=== PATIENT | female | born 1945 | race Caucasian/White ===

== ENCOUNTER → 2017-06-19 11:39 | Outpatient (CLI) | payer MEDICARE, SELFPAY ==
[2017-06-19 13:27] LABS: Anion Gap 5 (5-15); BUN 21 mg/dL (7-18); BUN/Creat Ratio 35.5 RATIO (10-20); Calcium,Total 9.1 mg/dL (8.5-10.1); Chloride 105 mmol/L (98-107); Creatinine, Serum 0.59 mg/dL (0.55-1.02); EST Glomerular Filtration Rate 106 mL/min (>60); Est Glom Filt Rate - Afr Amer 128 mL/min (>60); Glucose 131 mg/dL (74-106); Potassium 4.3 mmol/L (3.5-5.1); Sodium Level 139 mmol/L (136-145)
== END ==
PROVIDERS: Family Provider Internal Medicine; PCP Student in an Organized Health Care Education/Training Program; Visit Provider Internal Medicine Nephrology
DX: I10 Essential (primary) hypertension (principal)
CPT/HCPCS: 36415; 80048

== ENCOUNTER 2017-11-13 19:15 | Inpatient (IN) | payer MEDICARE, SELFPAY ==
[2017-11-13 19:16] VITALS: BP 145/65; PULSE 83; RESP 16; TEMP 38.2; O2SAT 94; BMI 32.0
[2017-11-13 20:01] LABS: Bedside Glucose 308 mg/dL (70-110)
[2017-11-13] MEDS: Acetaminophen 500 MG Tablet 1000 MG PO (20:16)
[2017-11-13] MEDS: 0.9% Normal Saline 1,000 ML 1000 ML IV (20:17)
[2017-11-13 20:24] LABS: Absolute Lymphocyte Count 0.74 X10^3/ul (0.83-4.51); Absolute Neutrophil Count 15.6 X10^3/uL (2.0-7.7); Basophil# 0.01 X10^3/uL; Basophil% 0.1 % (0-1); Eosinophil# 0.02 X10^3/uL; Eosinophils% 0.1 % (0-5); Hemoglobin 12.4 g/dl (12.0-15.0); Lymphocyte # 0.74 X10^3/ul (4.0); Lymphocyte % 4.4 % (19-41); Mean Corp Hgb Conc 33.5 g/gl (32-36); Mean Corpuscular Hgb 29.8 pg (27.0-32.0); Mean Corpuscular Volume 88.9 fL (81-99); Mean Platelet Vol. 9.8 fl (6.2-12.0); Monocyte# 0.22 X10^3/uL; Monocyte% 1.3 % (0-10); Neutrophil # 15.61 X10^3/uL (2.7-7.7); Neutrophil % 93.7 % (47-70); Platelet Count 385 K/mm3 (150-450); RBC Distribution Width CV 12.8 % (11.6-14.6); RBC Distribution Width SD 41.3 fl (35.1-43.9); Red Blood Count 4.16 M/mm3 (4.2-5.4); White Blood Count 16.7 K/mm3 (4.4-11.0)
--- NOTE | 2017-11-13 20:25 | RAD_ITS ---
STUDY: X-RAY CHEST REASON FOR EXAM: Female, 71 years old. Weakness TECHNIQUE: PA and lateral COMPARISON: None. FINDINGS: Nonspecific elevation of right hemidiaphragm. Lungs are clear.. There is no demonstrated pleural abnormality. Normal size heart. Normal mediastinum and areli. Normal visualized pulmonary arteries. Normal visualized aortic arch and descending thoracic aorta. Dorsal spine demonstrates mild spondylosis. Normal visualized ribs, clavicles, and shoulders. There is no demonstrated abnormality of the visualized soft tissue structures of the upper abdomen. RAD/Chest PA and Lateral IMPRESSION: No acute cardiopulmonary pathology Electronically Signed: Sid Rush MD at 21:19 EDT , Service support ,
[2017-11-13 20:27] LABS: POSITIVE COUNT NO; POSITIVE DIFFERENTIAL NO; POSITIVE MORPHOLOGY NO
[2017-11-13 20:39] LABS: Anion Gap 10 (5-15); BUN 29 mg/dL (7-18); BUN/Creat Ratio 27.4 RATIO (10-20); Calcium,Total 8.9 mg/dL (8.5-10.1); Chloride 101 mmol/L (98-107); Creatinine, Serum 1.06 mg/dL (0.55-1.02); EST Glomerular Filtration Rate 54 mL/min (>60); Est Glom Filt Rate - Afr Amer 65 mL/min (>60); Estimated Creatinine Clearance 37.94 ml/min; Glucose 307 mg/dL (74-106); Potassium 3.5 mmol/L (3.5-5.1); Sodium Level 135 mmol/L (136-145)
[2017-11-13 20:44] LABS: Lactic Acid 3.2 mmol/L (0.4-2.0)
[2017-11-13 21:06] VITALS: BP 112/38; PULSE 73; RESP 19; TEMP 37.4; O2SAT 95
[2017-11-13 21:44] LABS: Mucous, Urine 0 SEEN /hpf (<or=2+)
[2017-11-13 21:46] VITALS: TEMP 37.3
[2017-11-13 21:50] LABS: Color, Urine Yellow (Yellow); Glucose, Dipstick Normal (Normal); Ketone-Dipstick Negative (Negative); Leukocyte Esterase-Dipstick 500 /ul (Negative); Nitrite-Dipstick Positive (Negative); Occult Blood-Urine 25 /ul (Negative); Protein-Dipstick Negative (Negative); Urine Bilirubin Dipstick Negative (Negative); Urine Clarity Sl. Cloudy (Clear); Urine Urobilinogen Normal (Normal)
[2017-11-13 22:04] LABS: White Blood Cells 10-25 SEEN /hpf (0-5)
[2017-11-13 22:05] LABS: Bacteria 4+ /hpf (None Seen); Red Blood Cells-Urine 0 SEEN /hpf (0-5)
[2017-11-13 22:06] LABS: Squamous Epithelial Cells - UA 10-25 SEEN /hpf (5-10)
[2017-11-13] MEDS: Ceftriaxone 1 GM/50 ML BAG IV (22:44)
[2017-11-13 22:48] VITALS: BP 128/50; PULSE 70; RESP 24; O2SAT 93
[2017-11-13 22:57] VITALS: BP 128/50; PULSE 76; RESP 24; TEMP 37.3; O2SAT 93
--- NOTE | 2017-11-13 22:57 | HP.PCM_ITS ---
Problem List (1) Depression Status: Chronic (2) Type 2 diabetes mellitus Status: Chronic (3) Hypertension Status: Chronic (4) Hyperlipidemia Status: Chronic History of Present Illness Date of Admission: 11/13/17 Chief Complaint: Shaking chills, weakness. The patient is a 71 year old F with past medical history as mentioned above presented to the medicine because of shaking chills and weakness. Her symptoms started today afternoon, felt not well, started having shaking chills associated with weakness and malaise. She denied fever. She denied cough or sputum production. Denies sore throat, sinus or nasal congestion. Denied abdominal pain, nausea vomiting. Denies constipation or diarrhea. Denies urinary symptoms. She has a history of type 2 diabetes mellitus and she has been on metformin and according to the patient, her blood sugar usually under control. She has a history of hypertension, has been on Norvasc, Catapres and losartan and her blood pressure has been stable. She had a history of hyperlipidemia and she has been on gemfibrozil because she has been allergic to statins. In the emergency department, she had low-grade fever, blood pressure and heart rate were stable and pulse ox maintained on room air. Her routine blood work was remarkable for leukocytosis with neutrophilia, creatinine of 1.06 and BUN of 29. Lactic acid was 3.2. Chest x-ray showed no acute infiltrate, consolidation or effusion. Urinalysis revealed cloudy urine, positive for nitrite, positive for leukocyte esterase, there was 10-25 WBCs and 4+ bacteria. She is being admitted for severe sepsis secondary to acute cystitis as well as dehydration. Past Medical History Past Medical History (Chronic Problems): Chronic Problems Depression (Chronic) Type 2 diabetes mellitus (Chronic) Hypertension (Chronic) Hyperlipidemia (Chronic) Hip joint replacement status (Chronic) Allergies amlodipine besylate [From Norvasc] Allergy (Verified 11/13/17 19:23) Unknown azithromycin [From Zithromax] Allergy (Verified 11/13/17 19:23) Unknown carbetapentane citrate [From Gentex 30] Allergy (Verified 11/13/17 19:23) Unknown ciprofloxacin [From Cipro] Allergy (Verified 11/13/17 19:23) Unknown ciprofloxacin HCl [From Cipro] Allergy (Verified 11/13/17 19:23) Unknown clarithromycin [From Biaxin] Allergy (Verified 11/13/17 19:23) Unknown guaifenesin [From Gentex 30] Allergy (Verified 11/13/17 19:23) Unknown Penicillins Allergy (Verified 11/13/17 19:23) Unknown phenylephrine HCl [From Gentex 30] Allergy (Verified 11/13/17 19:23) Unknown Doejxrq-Lln-Yar Reductase Inhibitor Allergy (Verified 11/13/17 19:23) Unknown Home Medications: Ambulatory Orders Medication Instructions Recorded Aspirin [Aspirin, Baby] 81 mg PO DAILY@0800 05/02/14 Cholecalciferol (VIT D3) [Vitamin 1,000 unit PO BID 05/02/14 D3] Clonidine HCl [Catapres] 0.1 mg PO BID 05/02/14 Fluoxetine [Prozac] 40 mg PO DAILY 05/02/14 Gemfibrozil [Lopid] 600 mg PO BIDAC 05/02/14 Ibuprofen [Motrin] 600 mg PO Q6H PRN PRN 05/02/14 Losartan Potassium [Cozaar] 100 mg PO DAILY 05/02/14 Multivitamins,Therapeutic 1 tablet PO DAILY 05/02/14 [Multivitamin] Amlodipine [Norvasc] 1 tab PO DAILY 11/13/17 Baclofen [Baclofen] 1 tab PO TID 11/13/17 Biotin 10,000 mcg PO DAILY 11/13/17 Bupropion HCl [Bupropion Xl] 150 mg PO DAILY 11/13/17 Metformin(XR) [Glucophage Xr] 1 tab PO BID 11/13/17 Prednisone [Prednisone] 20 mg PO DAILY 11/13/17 Surgical History: hysterectomy, total hip arthroplasty Psychiatric History: Depression 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 Denies: Fever Eyes: Denies: Blurred vision, Double vision, Drainage, Redness HEENT: Denies: Difficulty Hearing, Ear Pain, Eye Pain, Nasal Congestion, Sore Throat Cardiovascular: Reports: Light Headedness. Denies: Chest Pain, Chest Pressure, Chest Tightness, Edema, Orthopnea, Palpitations, Syncope Respiratory: Denies: Cough, Pleuritic Pain, Shortness of Breath, Sputum production, Wheezing Gastrointestinal: Denies: Abdominal Pain, Constipation, Diarrhea, Hematochezia, Nausea, Vomiting Genitourinary: Denies: Dysuria, Frequency, Hematuria Musculoskeletal: Denies: Arm Pain, Back Pain, Foot Pain Skin: Denies: Dryness, Rash Neurological: Denies: Balance problems, Double vision, Change in Speech, Slurred speech, Confusion, Headaches, Incoordination, Numbness Psychiatric: Reports: Depression. Denies: Anxiety Endocrine: Denies: Change in Body Habitus, Polydipsia VTE Information - Inpt Only VTE Present on Admission: No VTE Mechan Device Prophylaxis: None VTE Pharm Prophylaxis ordered?: Yes - Physical Exam General: Alert, Oriented x3, Cooperative, No apparent distress HEENT: Atraumatic, PERRLA, EOMI, Normocephalic Oral: Moist Mucosa, No Gingival or Mucosal Lesions/ Ulcerations Neck: Supple, No JVD, Negative Carotid Bruits, Trachea Midline, Thyroid Normal Size and Texture Lungs: Clear to auscultation, No rhonchi, No wheeze, No rales, Diminished Cardiovascular: Regular rate, Regular Rhythm, Normal S1, Normal S2, PMI Normal Abdomen: Bowel Sounds Present, Soft, Non Tender, Non-Distended, No Hepato- splenomegaly, Obese Extremities: No clubbing, No cyanosis, Edema - Trace edema. Skin: No rashes, No breakdown Lymphatic: No Cervical, Supraclavicular, or Inguinal Adenopathy Neurological: Cranial nerves II-XII grossly intact, Motor Exam 5/5 strength throughout Psych/Mental Status: Normal Affect, Appropriate, Alert and oriented to time, place, person, mood and affect Vital Signs Temp Pulse Resp BP Pulse Ox 99.1 F 70 24 H 128/50 H 93 11/13/17 21:46 11/13/17 22:48 11/13/17 22:48 11/13/17 22:48 11/13/17 22:48 Oxygen Delivery Method Room Air Weight: 175 lb Body Mass Index (BMI) 32.0 Finger Stick Blood Glucose 308 Laboratory Tests Past 24 Hrs 11/13/17 11/13/17 11/13/17 20:10 20:10 20:10 WBC 16.7 H RBC 4.16 L Hgb 12.4 Hct 37.0 MCV 88.9 MCH 29.8 MCHC 33.5 RDW 12.8 RDW Differential 41.3 Plt Count 385 MPV 9.8 Immature Gran % (Auto) 0.400 Neut % (Auto) 93.7 H Lymph % (Auto) 4.4 L Bl[place] % (Auto) 1.3 Eos % (Auto) 0.1 Baso % (Auto) 0.1 Absolute Neuts (auto) 15.6 H Absolute Lymphs (auto) 0.74 L Total Counted Not Reportable Sodium 135 L Potassium 3.5 Chloride 101 Carbon Dioxide 24.0 Anion Gap 10 BUN 29 H Creatinine 1.06 H Estim Creat Clear Calc 37.94 Est GFR (MDRD) Af Amer 65 Est GFR (MDRD) Non-Af 54 L BUN/Creatinine Ratio 27.4 H Glucose 307 H Lactic Acid 3.2 H Calcium 8.9 Urine Color Urine Clarity Urine pH Ur Specific [place] Urine Protein Urine Glucose (UA) Urine Ketones Urine Occult Blood Urine Nitrite Urine Bilirubin Urine Urobilinogen Ur Leukocyte Esterase Urine RBC Urine WBC Ur Squamous Epith Cells Urine Bacteria Urine Mucus 11/13/17 20:40 WBC RBC Hgb Hct MCV MCH MCHC RDW RDW Differential Plt Count MPV Immature Gran % (Auto) Neut % (Auto) Lymph % (Auto) Bladen % (Auto) Eos % (Auto) Baso % (Auto) Absolute Neuts (auto) Absolute Lymphs (auto) Total Counted Sodium Potassium Chloride Carbon Dioxide Anion Gap BUN Creatinine Estim Creat Clear Calc Est GFR (MDRD) Af Amer Est GFR (MDRD) Non-Af BUN/Creatinine Ratio Glucose Lactic Acid Calcium Urine Color Yellow Urine Clarity Sl. Cloudy Urine pH 5.0 Ur Specific [place] 1.010 Urine Protein Negative Urine Glucose (UA) Normal Urine Ketones Negative Urine Occult Blood 25 H Urine Nitrite Positive H Urine Bilirubin Negative Urine Urobilinogen Normal Ur Leukocyte Esterase 500 H Urine RBC 0 SEEN Urine WBC 10-25 SEEN Ur Squamous Epith Cells 10-25 SEEN Urine Bacteria 4+ Urine Mucus 0 SEEN POC Glucose 11/13/17 19:45 POC Glucose 308 H Clinical Impression(s) from Imaging Studies Chest X-Ray 11/13/17 20:25 IMPRESSION: No acute cardiopulmonary pathology Electronically Signed: Sid Rush MD at 21:19 EDT , Service support , Assessment/Plan This is a 71 years old female patient presented to the emergency room because of shaking chills, weakness and malaise and she was found to have acute cystitis with severe sepsis as well as dehydration. #1 acute cystitis/severe sepsis: Urinalysis reviewed. At this time, her vitals are stable. Lactic acid is 3.2. Plan: Admit to [facility] floor, cardiac monitoring, IV fluids, IV Rocephin, blood culture, urine culture, repeat CBC and BMP tomorrow morning, repeat lactic acid in 3 hours, Tylenol as needed, IV antiemetics, PT OT evaluation and treatment. #2 dehydration: Secondary to above. BUN is 29, creatinine is 1.06. Baseline kidney function is normal. Plan for IV fluids as above, input output chart, repeat BMP tomorrow morning. #3 type 2 diabetes mellitus: Blood sugars 307. According to the patient, her blood sugar has been under control. Plan: ADA diet, Accu-Cheks, insulin sliding scale, hold metformin. #4 hyperlipidemia: Continue gemfibrozil. #5 hypertension: At this time, blood pressure is fairly stable. Plan to continue Catapres, hold Norvasc and losartan. #6 depression: Continue bupropion and Prozac. #7 DVT prophylaxis: Subcu Lovenox. This note was generated with [employer] dictation software. It may contain incorrect words, spelling, and punctuation that were not noted in checking the note before signing. Code Visit Inpatient E&M: 40689 Init Hosp L3
--- NOTE | 2017-11-13 22:58 | ED.DCSUM_ITS ---
- ER Visit Summary Date of Service: 11/13/17 Chief Complaint: Not feeling well History of Present Illness: The patient is a 71 F who presents with multiple complaints. She states that she really has not felt well for about the last 8 hours. She then developed shaking. She states it felt like she was having a seizure. She then also developed diffuse muscle aches joint aches mild headache and felt dizzy. She was recently treated with prednisone and a muscle relaxer for lower back pain. She denies recent illness otherwise. She denies cough congestion rhinorrhea sore throat. She denies urinary symptoms such as dysuria frequency urgency. Physical Examination: Temperature 100.7 vitals otherwise unremarkable Moist mucous membranes Heart regular rate and rhythm Lungs are clear Abdomen soft Alert Test Results: Labs are notable for white blood cell count of 16.7. Creatinine is 1.06. UA shows 500 leukocyte esterase positive nitrates 10-25 WBCs and 4+ bacteria. Lactic acid is 3.2. Chest x-ray shows no acute process. Emergency Department Course and Treatment: Patient does meet criteria for severe sepsis with UTI. She was treated with IV fluids and IV Rocephin. Given her lactic acidosis and leukocytosis I did feel she should be admitted. She was discussed with hospitalist and admitted for further treatment. Treatment Plan: [] Disposition: Admit Impression: Severe sepsis UTI This note was generated with [employer] dictation software. It may contain incorrect words, spelling, and punctuation that were not noted in review of the chart prior to signing ED Disposition - Plan for ED Patient: Chief Complaint: Dizziness Referrals: Lei Ibarra DO [Primary Care Provider] -
--- NOTE | 2017-11-13 23:19 | ED.RN ---
PATIENT STATES THE RIGHT SIDE OF HER LOWER LIP FEELS FUNNY LIKE A LUMP IS THERE. NOTHING LOOKS ABNORMAL TO THIS NURSE OR CLAUDIA QUINTANA WHO IS TAKING HER TO THE FLOOR. DR. MILLER MADE AWARE AND SAID TO WATCH HER. VIKTOR QUINTANA ON [facility] WAS MADE AWARE BEFORE PATIENT WENT TO THE FLOOR.
[2017-11-13 23:27] VITALS: BMI 34.2
[2017-11-13 23:51] VITALS: BP 126/61; PULSE 68; RESP 18; TEMP 36.9; O2SAT 96
[2017-11-13] MEDS: cloNIDine HCl 0.1 MG Tablet PO (23:57)
[2017-11-13] MEDS: Gemfibrozil 600 MG Tablet PO (23:57)
[2017-11-13] MEDS: Aspirin 81 MG TAB.CHEW PO (23:58)
[2017-11-14] VITALS (15 sets, daily range): BP systolic 120–171; BP diastolic 58–73; PULSE 56–70; RESP 16–18; TEMP 36.9–37.3; O2SAT 94–99
[2017-11-14 00:11] LABS: Bedside Glucose 227 mg/dL (70-110)
[2017-11-14 00:16] LABS: Reflex Lactate? Y
[2017-11-14] MEDS: Baclofen 10 MG Tablet PO ×4 (00:42→22:35)
[2017-11-14 01:33] LABS: Lactic Acid 1.6 mmol/L (0.4-2.0)
[2017-11-14 06:41] LABS: Absolute Lymphocyte Count 2.22 X10^3/ul (0.83-4.51); Absolute Neutrophil Count 15.3 X10^3/uL (2.0-7.7); Basophil# 0.02 X10^3/uL; Basophil% 0.1 % (0-1); Eosinophil# 0.26 X10^3/uL; Eosinophils% 1.4 % (0-5); Lymphocyte # 2.22 X10^3/ul (4.0); Lymphocyte % 11.8 % (19-41); Mean Corp Hgb Conc 33.3 g/gl (32-36); Mean Corpuscular Hgb 30.1 pg (27.0-32.0); Mean Corpuscular Volume 90.4 fL (81-99); Mean Platelet Vol. 9.9 fl (6.2-12.0); Monocyte# 1.05 X10^3/uL; Monocyte% 5.6 % (0-10); Neutrophil # 15.28 X10^3/uL (2.7-7.7); Neutrophil % 80.9 % (47-70); Platelet Count 322 K/mm3 (150-450); RBC Distribution Width CV 12.8 % (11.6-14.6); RBC Distribution Width SD 41.4 fl (35.1-43.9); Red Blood Count 3.65 M/mm3 (4.2-5.4); White Blood Count 18.9 K/mm3 (4.4-11.0)
[2017-11-14] MEDS: Insulin Lispro 100 UNIT/ML INSULN.PEN SC ×2 (06:55→22:41)
[2017-11-14] MEDS: Gemfibrozil 600 MG Tablet PO ×2 (06:56→16:43)
[2017-11-14] MEDS: Acetaminophen 325 MG Tablet 650 MG PO ×3 (06:56→22:43)
[2017-11-14 07:02] LABS: Anion Gap 8 (5-15); BUN 20 mg/dL (7-18); BUN/Creat Ratio 29.3 RATIO (10-20); Calcium,Total 8.2 mg/dL (8.5-10.1); Chloride 107 mmol/L (98-107); Creatinine, Serum 0.68 mg/dL (0.55-1.02); EST Glomerular Filtration Rate 90 mL/min (>60); Est Glom Filt Rate - Afr Amer 109 mL/min (>60); Estimated Creatinine Clearance 40.22 ml/min; Glucose 179 mg/dL (74-106); Potassium 4.3 mmol/L (3.5-5.1); Sodium Level 141 mmol/L (136-145)
[2017-11-14 07:06] LABS: Bedside Glucose 156 mg/dL (70-110)
[2017-11-14 07:12] LABS: POSITIVE COUNT NO; POSITIVE DIFFERENTIAL NO; POSITIVE MORPHOLOGY NO
[2017-11-14] MEDS: Aspirin 81 MG TAB.CHEW PO (08:50)
[2017-11-14] MEDS: cloNIDine HCl 0.1 MG Tablet PO ×2 (08:50→22:34)
[2017-11-14] MEDS: FLUoxetine 20 MG Capsule 40 MG PO (08:50)
[2017-11-14] MEDS: buPROPion (XL) 150 MG TABLET.XL PO (08:51)
[2017-11-14] MEDS: Enoxaparin 30 MG/0.3 ML Syringe SC (10:01)
[2017-11-14] MEDS: Ceftriaxone 1 GM/50 ML BAG IV (10:02)
[2017-11-14 11:36] LABS: Bedside Glucose 140 mg/dL (70-110)
--- NOTE | 2017-11-14 14:38 | CASEMGMT ---
RN JUSTINE Face to Face with patient for initial transition planning/care coordination assessment. RN CM introduced self and role at [facility]. Patient lying in bed, alert and oriented. Patient willing to participate in assessment and is able to answer all questions appropriately. Care providers, pharmacy, and demographics verified. See link attached. Patient wishes to discharge home, denies need for home health at this time. Patient states she has no further needs or concerns at this time. CM to follow for discharge planning needs that may arise. Disposition Plan: Patient to discharge home with family support and follow up plans in place.
--- NOTE | 2017-11-14 14:43 | PN_ITS ---
Subjective: Patient seen and examined today, she was admitted yesterday for acute severe sepsis secondary from acute cystitis. Preliminary urine culture positive for E. coli - Physical Exam General: Alert, Oriented x3, Cooperative, No apparent distress, Well developed, Well nourished HEENT: Atraumatic, PERRLA, EOMI, Normocephalic Oral: Moist Mucosa Neck: Supple, No JVD, No Nuchal Rigidity, Trachea Midline, Thyroid Normal Size and Texture Lungs: Clear to auscultation, Normal air movement, No rhonchi, No wheeze, No rales Cardiovascular: Regular rate, Regular Rhythm, Normal S1, Normal S2, No murmurs, No Ectopic Activity, PMI Normal, No rub noted, No Gallop Abdomen: Bowel Sounds Present, Soft, Non Tender, Non-Distended, No hernias noted Extremities: No clubbing, No cyanosis, No edema, Capillary Refill Less than 3 Seconds Skin: No rashes, No breakdown Musculoskeletal: No Tenderness to Palpation of Joints or Extremities Neurological: Cranial nerves II-XII grossly intact, Neuro grossly intact, Muscle tone normal, Sensory exam intact to light touch and pain, Coordination normal Psych/Mental Status: Normal Affect, Appropriate, Alert and oriented to time, place, person, mood and affect Vital Signs Temp Pulse Resp BP Pulse Ox 99.2 F H 70 16 125/58 H 94 11/14/17 08:50 11/14/17 12:01 11/14/17 08:50 11/14/17 08:50 11/14/17 08:50 Oxygen Flow Rate (L/min) 2 Oxygen Delivery Method Room Air Weight: 84.912 kg Body Mass Index (BMI) 34.2 Intake and Output for Last 24 Hours 11/12/17 11/13/17 11/14/17 23:59 23:59 23:59 Intake Total 1891 / 1891 Output Total 1750 / 1750 Balance 141 / 141 Laboratory Tests Past 24 Hrs 11/14/17 11/14/17 11/14/17 00:55 06:00 06:00 WBC 18.9 H RBC 3.65 L Hgb 11.0 L Hct 33.0 L MCV 90.4 MCH 30.1 MCHC 33.3 RDW 12.8 RDW Differential 41.4 Plt Count 322 MPV 9.9 Immature Gran % (Auto) 0.200 Neut % (Auto) 80.9 H Lymph % (Auto) 11.8 L [place]cock % (Auto) 5.6 Eos % (Auto) 1.4 Baso % (Auto) 0.1 Absolute Neuts (auto) 15.3 H Absolute Lymphs (auto) 2.22 Total Counted Not Reportable Sodium 141 Potassium 4.3 Chloride 107 Carbon Dioxide 26.0 Anion Gap 8 BUN 20 H Creatinine 0.68 Estim Creat Clear Calc 40.22 Est GFR (MDRD) Af Amer 109 Est GFR (MDRD) Non-Af 90 BUN/Creatinine Ratio 29.3 H Glucose 179 H Lactic Acid 1.6 Calcium 8.2 L POC Glucose 11/14/17 11/14/17 11/13/17 11:20 06:48 23:50 POC Glucose 140 H 156 H 227 H Medical Necessity - Tobacco Use Smoking Status: Never smoker Assessment/Plan #1 severe sepsis secondary to E. coli cystitis-continue Rocephin IV, await for sensitivities to return on E. coli, repeat CBC tomorrow #2 acute E. coli cystitis #3 Type 2 diabetes #4 hypertension #5 depression Code Visit Inpatient E&M: 54597 Subs Hosp L2
[2017-11-14 16:51] LABS: Bedside Glucose 115 mg/dL (70-110)
[2017-11-14 23:10] LABS: Bedside Glucose 173 mg/dL (70-110)
[2017-11-15 03:58] VITALS: PULSE 47
[2017-11-15 05:24] VITALS: BP 179/85; PULSE 56; RESP 18; TEMP 36.8; O2SAT 97
[2017-11-15] MEDS: Baclofen 10 MG Tablet PO (05:30)
[2017-11-15] MEDS: cloNIDine HCl 0.1 MG Tablet PO (05:30)
[2017-11-15 05:31] VITALS: PULSE 86
[2017-11-15] MEDS: Gemfibrozil 600 MG Tablet PO (07:02)
[2017-11-15] MEDS: Insulin Lispro 100 UNIT/ML INSULN.PEN SC (07:02)
[2017-11-15] MEDS: Acetaminophen 325 MG Tablet 650 MG PO (07:04)
[2017-11-15 07:10] LABS: Bedside Glucose 168 mg/dL (70-110)
[2017-11-15 07:43] VITALS: PULSE 48
[2017-11-15 07:51] VITALS: PULSE 43
[2017-11-15] MEDS: Ceftriaxone 1 GM/50 ML BAG IV (09:29)
[2017-11-15] MEDS: Enoxaparin 30 MG/0.3 ML Syringe SC (09:29)
[2017-11-15] MEDS: Aspirin 81 MG TAB.CHEW PO (09:30)
[2017-11-15] MEDS: FLUoxetine 20 MG Capsule 40 MG PO (09:30)
[2017-11-15] MEDS: buPROPion (XL) 150 MG TABLET.XL PO (09:30)
[2017-11-15 09:34] LABS: Absolute Lymphocyte Count 1.21 X10^3/ul (0.83-4.51); Absolute Neutrophil Count 6.5 X10^3/uL (2.0-7.7); Basophil# 0.02 X10^3/uL; Basophil% 0.2 % (0-1); Eosinophil# 0.24 X10^3/uL; Eosinophils% 2.8 % (0-5); Hematocrit 35.1 % (37-47); Hemoglobin 11.6 g/dl (12.0-15.0); Lymphocyte # 1.21 X10^3/ul (4.0); Mean Corpuscular Hgb 29.5 pg (27.0-32.0); Mean Corpuscular Volume 89.3 fL (81-99); Mean Platelet Vol. 9.4 fl (6.2-12.0); Monocyte# 0.74 X10^3/uL; Monocyte% 8.5 % (0-10); Neutrophil # 6.45 X10^3/uL (2.7-7.7); Neutrophil % 74.4 % (47-70); Platelet Count 279 K/mm3 (150-450); RBC Distribution Width CV 13.1 % (11.6-14.6); RBC Distribution Width SD 42.9 fl (35.1-43.9); Red Blood Count 3.93 M/mm3 (4.2-5.4); White Blood Count 8.7 K/mm3 (4.4-11.0)
[2017-11-15 09:48] LABS: POSITIVE COUNT NO; POSITIVE DIFFERENTIAL NO; POSITIVE MORPHOLOGY NO
--- NOTE | 2017-11-15 10:08 | DCINST_ITS ---
- Discharge Diagnoses Current Active Problems: Current Active and Chronic Problems Depression (Chronic) Type 2 diabetes mellitus (Chronic) You will use the following diet at home:: Calorie/Carbohydrate Controlled ( specify 1200, 1400, etc) - 1800 deanna Your food should be the consistency of: Regular Your liquids should be the consistency of: Regular/Thin Discharge Activity: Return to Normal Activity Weight Bearing Status: Full weight bearing Allergies/Adverse Reactions: Allergies amlodipine besylate [From Norvasc] Allergy (Verified 11/13/17 19:23) Unknown azithromycin [From Zithromax] Allergy (Verified 11/13/17 19:23) Unknown carbetapentane citrate [From Gentex 30] Allergy (Verified 11/13/17 19:23) Unknown ciprofloxacin [From Cipro] Allergy (Verified 11/13/17 19:23) Unknown ciprofloxacin HCl [From Cipro] Allergy (Verified 11/13/17 19:23) Unknown clarithromycin [From Biaxin] Allergy (Verified 11/13/17 19:23) Unknown guaifenesin [From Gentex 30] Allergy (Verified 11/13/17 19:23) Unknown Penicillins Allergy (Verified 11/13/17 19:23) Unknown phenylephrine HCl [From Gentex 30] Allergy (Verified 11/13/17 19:23) Unknown Rykaxie-Aop-Mzv Reductase Inhibitor Allergy (Verified 11/13/17 19:23) Unknown Medications to take at Discharge Aspirin [Aspirin, Baby] 81 mg PO QHS 05/02/14 Cholecalciferol (VIT D3) [Vitamin D3] 1,000 unit PO BID 05/02/14 Clonidine HCl [Catapres] 0.1 mg PO BID 05/02/14 Fluoxetine [Prozac] 40 mg PO DAILY 05/02/14 Gemfibrozil [Lopid] 600 mg PO BIDAC 05/02/14 Ibuprofen [Motrin] 600 mg PO Q6H PRN PRN 05/02/14 Losartan Potassium [Cozaar] 100 mg PO DAILY 05/02/14 Multivitamins,Therapeutic [Multivitamin] 1 tablet PO DAILY 05/02/14 Amlodipine [Norvasc] 1 tab PO DAILY 11/13/17 Baclofen 1 tab PO TID 11/13/17 Biotin 10,000 mcg PO DAILY 11/13/17 Bupropion HCl [Bupropion Xl] 150 mg PO DAILY 11/13/17 Metformin(XR) [Glucophage Xr] 1 tab PO DAILY 11/13/17 Prednisone 20 mg PO DAILY 11/13/17 Cephalexin [Keflex] 500 mg PO TID #21 cap 11/15/17 The following prescriptions were given: Cephalexin [Keflex] 500 mg PO TID #21 cap Primary Care Physician: Lei Ibarra DO [Primary Care Provider] - Please follow up with your Primary Care Physician in: in 1-2 weeks Test Results: Test results from this visit will be discussed in further detail at your follow- up appointment, if applicable.
--- NOTE | 2017-11-15 17:24 | PCM.DC.SUM ---
Discharge Date and Diagnosis Date of Admission: 11/13/17 Date of Discharge: 11/15/17 - Primary Discharge Diagnosis #1 severe sepsis secondary to E. coli from cystitis #2 acute E. coli cystitis #3 type 2 diabetes #4 hypertension #5 depression #6 dehydration - Secondary Discharge Diagnosis Chronic Problems Depression (Chronic) Type 2 diabetes mellitus (Chronic) Hypertension (Chronic) Hyperlipidemia (Chronic) Hip joint replacement status (Chronic) Hospital Course and Treatment Operations: None Procedures: None Summary of Care Provided: The patient is a 71 year old F was seen in the emergency room at [facility] with a chief complaint of malaise and shaking chills. Patient also complained of diffuse muscle aches and mild headache and dizziness. Workup in the emergency room showed a white count blood cell count to be elevated at 16.7, UA indicated an acute urinary tract infection with white blood cells and +4 bacteria, lactic acid was 3.2. Patient's BUN and creatinine was slightly elevated, chest x-ray showed no acute process. Patient fit criteria for severe sepsis, she was admitted to [place] [address], given IV fluids, and IV antibiotics. Urine culture grew out E. coli which was susceptible to several antibiotics, patient's repeat white blood cell count normalized on 11/15/17, patient was seen and examined on that date, she was felt to be stable for discharge home Discharge Activity: Return to Normal Activity Weight Bearing Status: Full weight bearing Home Medications: Medications to take at Discharge Aspirin [Aspirin, Baby] 81 mg PO QHS 05/02/14 Cholecalciferol (VIT D3) [Vitamin D3] 1,000 unit PO BID 05/02/14 Clonidine HCl [Catapres] 0.1 mg PO BID 05/02/14 Fluoxetine [Prozac] 40 mg PO DAILY 05/02/14 Gemfibrozil [Lopid] 600 mg PO BIDAC 05/02/14 Ibuprofen [Motrin] 600 mg PO Q6H PRN PRN 05/02/14 Losartan Potassium [Cozaar] 100 mg PO DAILY 05/02/14 Multivitamins,Therapeutic [Multivitamin] 1 tablet PO DAILY 05/02/14 Amlodipine [Norvasc] 1 tab PO DAILY 11/13/17 Baclofen 1 tab PO TID 11/13/17 Biotin 10,000 mcg PO DAILY 11/13/17 Bupropion HCl [Bupropion Xl] 150 mg PO DAILY 11/13/17 Metformin(XR) [Glucophage Xr] 1 tab PO DAILY 11/13/17 Prednisone 20 mg PO DAILY 11/13/17 Cephalexin [Keflex] 500 mg PO TID #21 cap 11/15/17 Following Prescrptions Were Given to Patient: Cephalexin [Keflex] 500 mg PO TID #21 cap Primary Care Physician: Lei Ibarra DO [Primary Care Provider] - Please follow up with your Primary Care Physician in: in 1-2 weeks Disposition: Home Minutes spent on discharge:: 32 Patient Condition:: Stable Medical Necessity - Tobacco Use Smoking Status: Never smoker Meaningful Use Info Meaningful Use Diagnoses (Choose all that apply): None applicable Code Visit Inpatient E&M: 92156 Disch Hosp
--- NOTE | 2017-11-15 17:28 | DS.PCM_ITS ---
Discharge Date and Diagnosis Date of Admission: 11/13/17 Date of Discharge: 11/15/17 - Primary Discharge Diagnosis #1 severe sepsis secondary to E. coli from cystitis #2 acute E. coli cystitis #3 type 2 diabetes #4 hypertension #5 depression #6 dehydration - Secondary Discharge Diagnosis Chronic Problems Depression (Chronic) Type 2 diabetes mellitus (Chronic) Hypertension (Chronic) Hyperlipidemia (Chronic) Hip joint replacement status (Chronic) Hospital Course and Treatment Operations: None Procedures: None Summary of Care Provided: The patient is a 71 year old F was seen in the emergency room at [facility] with a chief complaint of malaise and shaking chills. Patient also complained of diffuse muscle aches and mild headache and dizziness. Workup in the emergency room showed a white count blood cell count to be elevated at 16.7, UA indicated an acute urinary tract infection with white blood cells and +4 bacteria, lactic acid was 3.2. Patient's BUN and creatinine was slightly elevated, chest x-ray showed no acute process. Patient fit criteria for severe sepsis, she was admitted to [place] [address], given IV fluids, and IV antibiotics. Urine culture grew out E. coli which was susceptible to several antibiotics, patient's repeat white blood cell count normalized on , patient was seen and examined on that date, she was felt to be stable for discharge home Discharge Activity: Return to Normal Activity Weight Bearing Status: Full weight bearing Home Medications: Medications to take at Discharge Aspirin [Aspirin, Baby] 81 mg PO QHS 05/02/14 Cholecalciferol (VIT D3) [Vitamin D3] 1,000 unit PO BID 05/02/14 Clonidine HCl [Catapres] 0.1 mg PO BID 05/02/14 Fluoxetine [Prozac] 40 mg PO DAILY 05/02/14 Gemfibrozil [Lopid] 600 mg PO BIDAC 05/02/14 Ibuprofen [Motrin] 600 mg PO Q6H PRN PRN 05/02/14 Losartan Potassium [Cozaar] 100 mg PO DAILY 05/02/14 Multivitamins,Therapeutic [Multivitamin] 1 tablet PO DAILY 05/02/14 Amlodipine [Norvasc] 1 tab PO DAILY 11/13/17 Baclofen 1 tab PO TID 11/13/17 Biotin 10,000 mcg PO DAILY 11/13/17 Bupropion HCl [Bupropion Xl] 150 mg PO DAILY 11/13/17 Metformin(XR) [Glucophage Xr] 1 tab PO DAILY 11/13/17 Prednisone 20 mg PO DAILY 11/13/17 Cephalexin [Keflex] 500 mg PO TID #21 cap 11/15/17 Following Prescrptions Were Given to Patient: Cephalexin [Keflex] 500 mg PO TID #21 cap Primary Care Physician: Lei Ibarra DO [Primary Care Provider] - Please follow up with your Primary Care Physician in: in 1-2 weeks Disposition: Home Minutes spent on discharge:: 32 Patient Condition:: Stable Medical Necessity - Tobacco Use Smoking Status: Never smoker Meaningful Use Info Meaningful Use Diagnoses (Choose all that apply): None applicable Code Visit Inpatient E&M: 55564 Disch Hosp
== END 2017-11-15 10:55 | disposition home or self-care (01) | DRG 872 ==
LOC: ED 20:23 → MS3 23:03
PROVIDERS: Admitting Provider Hospitalist; Emergency Provider Emergency Medicine; Family Provider Student in an Organized Health Care Education/Training Program; PCP Student in an Organized Health Care Education/Training Program; Visit Provider Internal Medicine
DX: A41.51 Sepsis due to Escherichia coli [E. coli] (principal); N30.00 Acute cystitis without hematuria; R65.20 Severe sepsis without septic shock; I10 Essential (primary) hypertension; E11.9 Type 2 diabetes mellitus without complications; E86.0 Dehydration; E78.5 Hyperlipidemia, unspecified; F32.9 Major depressive disorder, single episode, unspecified; B96.20 Unspecified Escherichia coli [E. coli] as the cause of diseases classified elsewhere; Z79.84 Long term (current) use of oral hypoglycemic drugs; Z79.899 Other long term (current) drug therapy; Z96.649 Presence of unspecified artificial hip joint
CPT/HCPCS: 36415; 71046; 80048; 81001; 82962; 83605; 85025; 87040; 87077; 87086; 87088; 87186; 99282; J7030; J7050; A4216

== ENCOUNTER 2017-11-21 10:24 | Emergency (ER) | payer MEDICARE, SELFPAY ==
[2017-11-21 10:25] VITALS: BP 166/94; PULSE 67; RESP 18; TEMP 37.1; O2SAT 99; BMI 32.0
--- NOTE | 2017-11-21 10:52 | CT_ITS ---
STUDY: CT SOFT TISSUE NECK WITH CONTRAST REASON FOR EXAM: Female, 71 years old. Stiff neck. Dysphagia. RADIATION DOSAGE (If Supplied By Facility): CTDIvol = ( 20.35 ) mGy, DLP = ( 563.93 ) mGycm TECHNIQUE: The patient was scanned in a multi-detector CT scanner. High resolution transaxial imaging was performed following intravenous administration of 75mL ml of Isovue 300 contrast material. Sagittal and coronal images were reconstructed. Individualized dose optimization techniques were used for this CT. COMPARISON: None. FINDINGS: Normal bilateral parotid glands. Normal bilateral planer operator / grader spaces. Normal bilateral parapharyngeal spaces. Normal bilateral carotid spaces. Normal bilateral sublingual and submandibular glands and spaces. Normal visualized nasopharynx. Normal retropharyngeal space. Normal perivertebral space. Normal visualized bilateral faucial tonsils. The visualized tongue, tongue base and oropharynx are normal. There are minimally enlarged lymph nodes of the neck, with preservation of normal jose a architecture, consistent with a reactive lymph hyperplasia. There is no demonstrated solid or cystic mass lesion. There is no abnormal contrast enhancement. Normal epiglottis, bilateral vallecula and hypopharynx. The pre-epiglottic and paraglottic adipose spaces are normal. Normal visualized bilateral piriform sinuses, aryepiglottic folds, vocal cords, and arytenoid-cricoid articulations. Normal subglottic trachea. Normal bilateral lobes of the thyroid gland. Normal visualized pulmonary apices. Normal visualized paranasal sinuses. There is multilevel degenerative changes of the cervical spine. CT/Soft Tissue Neck WITH Contrast IMPRESSION: Normal enhanced CT examination of the soft tissues of the neck. Electronically Signed: Colin Fletcher MD at 12:21 EDT Tel [phone], Service support ,
[2017-11-21 10:58] LABS: Bacteria 0 SEEN /hpf (None Seen); Mucous, Urine 0 SEEN /hpf (<or=2+); Red Blood Cells-Urine 0 SEEN /hpf (0-5)
[2017-11-21 10:59] LABS: Color, Urine Yellow (Yellow); Glucose, Dipstick Normal (Normal); Ketone-Dipstick Negative (Negative); Leukocyte Esterase-Dipstick 25 /ul (Negative); Nitrite-Dipstick Negative (Negative); Occult Blood-Urine Negative /ul (Negative); Protein-Dipstick Negative (Negative); Urine Bilirubin Dipstick Negative (Negative); Urine Clarity Sl. Cloudy (Clear); Urine Urobilinogen Normal (Normal)
[2017-11-21 11:06] LABS: Squamous Epithelial Cells - UA 0-5 SEEN /hpf (5-10); White Blood Cells 0-5 SEEN /hpf (0-5)
[2017-11-21] MEDS: Ondansetron 4 MG/2 ML Vial IV (11:11)
[2017-11-21] MEDS: Morphine 4 MG/ML Syringe IV (11:11)
[2017-11-21] MEDS: 0.9% Normal Saline 1,000 ML 1000 ML IV (11:11)
[2017-11-21 11:31] LABS: Absolute Lymphocyte Count 1.44 X10^3/ul (0.83-4.51); Absolute Neutrophil Count 7.8 X10^3/uL (2.0-7.7); Basophil# 0.06 X10^3/uL; Basophil% 0.6 % (0-1); Eosinophil# 0.17 X10^3/uL; Eosinophils% 1.7 % (0-5); Hematocrit 41.1 % (37-47); Hemoglobin 13.8 g/dl (12.0-15.0); Lymphocyte # 1.44 X10^3/ul (4.0); Lymphocyte % 14.1 % (19-41); Mean Corp Hgb Conc 33.6 g/gl (32-36); Mean Corpuscular Hgb 29.7 pg (27.0-32.0); Mean Corpuscular Volume 88.4 fL (81-99); Mean Platelet Vol. 9.1 fl (6.2-12.0); Monocyte# 0.66 X10^3/uL; Monocyte% 6.5 % (0-10); Neutrophil # 7.79 X10^3/uL (2.7-7.7); Neutrophil % 76.5 % (47-70); POSITIVE COUNT NO; POSITIVE DIFFERENTIAL NO; POSITIVE MORPHOLOGY NO; Platelet Count 368 K/mm3 (150-450); RBC Distribution Width SD 41.4 fl (35.1-43.9); Red Blood Count 4.65 M/mm3 (4.2-5.4); White Blood Count 10.2 K/mm3 (4.4-11.0)
[2017-11-21 11:39] LABS: Anion Gap 9 (5-15); BUN 17 mg/dL (7-18); BUN/Creat Ratio 22.9 RATIO (10-20); Calcium,Total 9.1 mg/dL (8.5-10.1); Chloride 102 mmol/L (98-107); Creatinine, Serum 0.74 mg/dL (0.55-1.02); EST Glomerular Filtration Rate 82 mL/min (>60); Est Glom Filt Rate - Afr Amer 99 mL/min (>60); Estimated Creatinine Clearance 40.22 ml/min; Glucose 152 mg/dL (74-106); Potassium 4.2 mmol/L (3.5-5.1); Sodium Level 135 mmol/L (136-145)
--- NOTE | 2017-11-21 12:15 | ED.VISSUMM ---
- ER Visit Summary Date of Service: 11/21/17 Chief Complaint: Neck pain History of Present Illness: The patient is a [address] Ibarra. She reports that she has neck pain that began yesterday. When asked about the quality of the pain she reports that it feels like pulled muscles. States that it is 10 out of 10 in severity. Is worsened by swallowing or movement. She has not taken anything for pain. She denies any recent trauma. No fall, MVA, or change in activity. Review of systems: General: No fever, chills, cold sweats. Cardiovascular: No chest pain, palpitations. Respiratory: No cough, shortness of breath, dyspnea on exertion. Gastrointestinal: No abdominal pain, nausea, vomiting, diarrhea, melena, or hematochezia. Genitourinary: No dysuria, frequency, hematuria. Skin: No rash. Neuro: No headache, numbness, weakness. Physical Examination: Vitals: Stable. Afebrile. General: Well-nourished and well-developed. Head: Normocephalic atraumatic. Neck: Supple, no lymphadenopathy. No JVD. Nontender. However, the patient clearly has pain with turning her head either direction or flexion of her neck. Cardiovascular: Regular rate and rhythm. No murmurs. Respiratory: No respiratory distress. Clear to auscultation bilaterally. Abdominal: Soft, nontender, nondistended, normal bowel sounds. No guarding, rebound, or peritoneal signs. Back: Nontender. Extremities: Nontender, no edema. Skin: Normal color, no rash. Neurologic: Alert and oriented ?3. Cranial nerves II through XII are intact. Normal strength and sensation. Psych: Normal affect. Test Results: CBC is marked for 7 neutrophils 77 lymphocytes 14. Chem-7 is more for sodium 135 and glucose 152. UA is negative. CT soft tissue neck is normal other than multilevel degenerative changes of the spine. Emergency Department Course and Treatment: Upon arrival to the emergency department patient reports that she is concerned about the possibility of encephalitis that she was recently admitted for sepsis with a UTI. I reviewed her visit. Her urine grew E. coli greater than 100,000 colony-forming units that was pansensitive. Her blood cultures were negative. I discussed the likelihood of meningitis and/or encephalitis with the patient. Again she denies any headache. I discussed with her that she would need to have a lumbar puncture to rule out encephalitis and/or meningitis and that clinically I do not think that this is indicated. She does not want a spinal tap performed. Patient is given dose of morphine and Zofran IV. She is resting comfortably. Treatment Plan: Patient will be discharged with [place] and Colace. Instructed to use moist heat to the area. Follow-up with her primary care physician 1-2 days if not improving. Return to the emergency department for any worsening symptoms. Disposition: To home in improved and stable condition. Impression: 1. Neck pain, acute. This note was generated with [employer] dictation software. It may contain incorrect words, spelling, and punctuation that were not noted in review of the chart prior to signing ED Disposition - Plan for ED Patient: Disposition: Home or Assisted Living Chief Complaint: Other, Pain/Inj Instructions: ED Spasm Neck No Injury Prescriptions: Docusate Sodium [Colace] 100 mg PO DAILY #20 capsule Hydrocodone/Acetaminophen [[place] 5-325 Tablet] 1 - 2 each PO 4X/DAY PRN PRN 3 Days #12 tablet PRN Reason: Pain Referrals: Lei Ibarra DO [Primary Care Provider] - 1-2 Days if not improving
[2017-11-21 12:19] VITALS: BP 181/75; PULSE 62; RESP 12; O2SAT 94
[2017-11-21] MEDS: HYDROcodone Bitartrate/Apap 5/325 Tablet PO (12:39)
[2017-11-21] MEDS: Ibuprofen 400 MG Tablet PO (12:40)
[2017-11-21 12:47] VITALS: BP 191/75; PULSE 64; RESP 18; O2SAT 96
== END 2017-11-21 12:48 | disposition home or self-care (01) ==
LOC: ED 11:41
PROVIDERS: Emergency Provider Emergency Medicine; Family Provider Student in an Organized Health Care Education/Training Program; PCP Student in an Organized Health Care Education/Training Program
DX: M54.2 Cervicalgia (principal); E11.9 Type 2 diabetes mellitus without complications; I10 Essential (primary) hypertension; E78.00 Pure hypercholesterolemia, unspecified; F32.9 Major depressive disorder, single episode, unspecified
CPT/HCPCS: 70491; 80048; 81001; 85025; 96361; 96374; 96375; 99284; J7030; Q9967; A4216; J2405

== ENCOUNTER → 2018-12-10 | Outpatient (CLI) | payer MEDICARE, SELFPAY ==
[2018-12-10 16:44] LABS: Hematocrit 40.7 % (37-47); Hemoglobin 13.4 g/dL (12.0-15.0); Mean Corp Hgb Conc 32.9 g/dL (32-36); Mean Corpuscular Hgb 30.1 pg (27.0-32.0); Mean Corpuscular Volume 91.5 fL (81-99); Mean Platelet Vol. 9.8 fl (6.2-12.0); Platelet Count 319 K/mm3 (150-450); RBC Distribution Width CV 12.8 % (11.6-14.6); RBC Distribution Width SD 43.1 fl (35.1-43.9); Red Blood Count 4.45 M/mm3 (4.2-5.4)
[2018-12-10 17:14] LABS: Anion Gap 7 (5-15); BUN 23 mg/dL (7-18); BUN/Creat Ratio 30.3 RATIO (10-20); Calcium,Total 8.9 mg/dL (8.5-10.1); Chloride 107 mmol/L (98-107); Creatinine, Serum 0.76 mg/dL (0.55-1.02); EST Glomerular Filtration Rate 79 mL/min (>60); Est Glom Filt Rate - Afr Amer 96 mL/min (>60); Glucose 181 mg/dL (74-106); Potassium 4.2 mmol/L (3.5-5.1); Sodium Level 141 mmol/L (136-145)
== END | disposition home or self-care (01) ==
PROVIDERS: Family Provider Student in an Organized Health Care Education/Training Program; PCP Student in an Organized Health Care Education/Training Program; Referring Provider Orthopaedic Surgery; Visit Provider Orthopaedic Surgery
DX: Z01.818 Encounter for other preprocedural examination (principal)
CPT/HCPCS: 36415; 80048; 85027

== ENCOUNTER 2019-05-25 17:34 | Inpatient (IN) | payer MEDICARE, SELFPAY ==
[2019-05-25] VITALS (7 sets, daily range): BP systolic 145–188; BP diastolic 65–83; PULSE 60–67; RESP 12–21; TEMP 36.2–37.2; O2SAT 97–100; BMI 32.8; BMI 33.0; BMI 33.1
--- NOTE | 2019-05-25 18:38 | US_ITS ---
STUDY: ABDOMINAL ULTRASOUND - RIGHT UPPER QUADRANT REASON FOR VISIT: Female, 73 years old UPPER ABD PAIN,,, JUST TODAY SEVERE NAUSEA TECHNIQUE: Ultrasound evaluation of the right upper quadrant was performed with real-time and static wood-scale imaging. TECHNICAL QUALITY: Adequate. COMPARISON: CT of the abdomen and pelvis dated January 26, 2009 FINDINGS: Liver: The liver measures 16.7 cm. There is increased echogenicity consistent with fatty infiltration. The bile ducts are within normal limits. There is hepatic color flow. There is no demonstrated mass lesion. Gallbladder: Normal distended gallbladder. The gallbladder wall measures 3 mm. There is no pericholecystic fluid. Multiple gallstones are seen in the neck of the gallbladder lumen. Common Bile Duct (C.B.D.): The common bile duct measures 4 mm. Pancreas: The head and proximal body of the pancreas is visualized showing diffusely increased echogenicity of the parenchyma. The tail of the pancreas is not seen. The borders of the pancreas appear somewhat lobular/irregular. No obvious mass is seen on the current study. Right Kidney: Normal size of the right kidney. The right kidney measures 10.0 x 5.4 cm. Normal renal cortex. There is no demonstrated renal mass or cyst. There is no right hydronephrosis. US/Gallbladder IMPRESSION: 1. Multiple small stones in the neck of the gallbladder. 2. The borders of the pancreas appear somewhat lobular/irregular. No obvious mass is seen on the current study. CT or MRI with contrast with pancreatic protocol is recommended. Electronically Signed: Jorge Mayen MD at 19:41 EST , Service support ,
--- NOTE | 2019-05-25 18:39 | RAD_ITS ---
STUDY: X-RAY CHEST REASON FOR EXAM: Female, 73 years old. upper abdomen pain TECHNIQUE: Single AP portable view of the chest. COMPARISON: November 13, 2017 FINDINGS: The lungs are clear and expanded. There is no demonstrated pleural abnormality. Normal size heart. Stable visualized mediastinal and osseous structures. RAD/Chest 1 View (Portable) IMPRESSION: No acute process Electronically Signed: Jorge Mayen MD at 18:51 EST , Service support ,
--- NOTE | 2019-05-25 18:39 | EKG12_ITS ---
Test Reason : Blood Pressure : / mmHG Vent. Rate : 059 BPM Atrial Rate : 059 BPM P-R Int : 146 ms QRS Dur : 088 ms QT Int : 428 ms P-R-T Axes : 041 009 007 degrees QTc Int : 423 ms Sinus bradycardia with sinus arrhythmia Minimal voltage criteria for LVH, may be normal variant Borderline ECG Confirmed by ABBE SMITH, MALKA ([id number]), offline editor BELTRAN SOLER ([id number]) on 05/27/2019 9:56:13 AM Referred By: NOHEMY Confirmed By:MALKA MCADAMS MD
--- NOTE | 2019-05-25 18:40 | ED.DCSUM_ITS ---
History of Present Illness Chief Complaint: Abd Pain Informant: Patient - Abdominal Pain/Flank Pain Onset: Hours - 2 Context: Sudden Onset - while in taoist, praying Timing: Continuous Quality: Aching Location: - - across upper abd Current Severity: Severe Maximum Severity: Severe Worsened by: Nothing Relieved by: Nothing - Nausea/Vomiting/Emesis GI Symptom: Nausea. Negative for: Vomiting - Diarrhea/Melena/Hematochezia GI Symptom: Negative for: Diarrhea, Melena, Hematochezia Associated Symptoms: Negative for: Dysuria, Frequency, Hematuria, Urgency Narrative: Last oral intake was 10:00 this morning, about 8 or 9 hours prior to evaluation. Normal bowel movement this morning. Never had pain like this before. No history of abdominal surgeries. Does not radiate into her back, no migration. No discomfort up into her chest. Has a history of reflux but never had this before. No chest pain or shortness of breath or fevers. - Past Medical History (1) GERD (gastroesophageal reflux disease) Status: Chronic (2) Depression Status: Chronic (3) Hyperlipidemia Status: Chronic (4) Hypertension Status: Chronic (5) Type 2 diabetes mellitus Status: Chronic Past Medical History - Allergies and Home Meds Allergies/Adverse Reactions: Allergies amlodipine besylate [From Norvasc] Allergy (Verified 11/21/17 10:27) Unknown azithromycin [From Zithromax] Allergy (Verified 11/21/17 10:27) Unknown carbetapentane citrate [From Gentex 30] Allergy (Verified 11/21/17 10:27) Unknown chlorhexidine Allergy (Verified 05/25/19 21:47) Unknown ciprofloxacin [From Cipro] Allergy (Verified 11/21/17 10:27) Unknown ciprofloxacin HCl [From Cipro] Allergy (Verified 11/21/17 10:27) Unknown clarithromycin [From Biaxin] Allergy (Verified 11/21/17 10:27) Unknown guaifenesin [From Gentex 30] Allergy (Verified 11/21/17 10:27) Unknown Penicillins Allergy (Verified 11/21/17 10:27) Unknown phenylephrine HCl [From Gentex 30] Allergy (Verified 11/21/17 10:27) Unknown Rnporho-Qiu-Eva Reductase Inhibitor Allergy (Verified 11/21/17 10:27) Unknown Surgical History: hysterectomy, total hip arthroplasty Lives: Spouse/ Significant Other Smoking Status: Never smoker Alcohol: None - Family History Maternal Family History: Reports: No pertinent history Paternal Family History: Reports: No pertinent history Review of Systems General: Denies: Chills, Fever, Sweats Eyes: Denies: Visual changes - bilaterally, Diplopia ENT: Denies: Rhinorrhea, Sore throat Cardiovascular: Denies: Chest pain, Palpitations Respiratory: Denies: Dyspnea, Cough, Dyspnea on exertion Gastrointestinal: Reports: Abdominal pain, Nausea. Denies: Vomiting, Diarrhea, Melena, Hematochezia Genitourinary: Denies: Dysuria, Hematuria, Frequency Musculoskeletal: Denies: Back pain, Extremity Pain Skin: Denies: Rash, Wounds Neurological: Denies: Headache, Weakness, Numbness Physical Exam Vital Signs/Narrative: Vital Signs Temp Pulse Resp BP Pulse Ox 05/25/19 17:59 60 12 188/76 H 100 05/25/19 17:35 97.2 F L 62 16 178/83 H 05/25/19 17:34 97.2 F L 62 16 178/83 H Inital Vital Signs reviewed: Yes General: Well nourished, Well developed, No Acute Distress Head: Normocephalic, Atraumatic Eyes: Perrl, EOMI ENT: Moist mucous membranes, No rhinorrhea Neck: Supple, Nontender Cardiovascular: Regular rate, Regular rhythm, No murmurs Respiratory: No distress, CTA bilaterally, Chest nontender Abdomen: Soft, Nondistended, Normal bowel sounds, Tender - RUQ only, Nicholson's sign Back: Nontender, Normal Inspection. Negative for: CVA tenderness Extremities: Nontender, No edema Skin: Normal color, No rash Neurological: Alert, Oriented x3, Cranial nerves II-XII grossly intact, Normal Strength, Normal Sensation, Normal Gait Psychological: Normal affect, Normal Mood Diagnostic/Tx/Re-eval Clinical Impression(s) from Imaging Studies Gallbladder Ultrasound 05/25/19 18:38 IMPRESSION: 1. Multiple small stones in the neck of the gallbladder. 2. The borders of the pancreas appear somewhat lobular/irregular. No obvious mass is seen on the current study. CT or MRI with contrast with pancreatic protocol is recommended. Electronically Signed: Jorge Mayen MD at 19:41 EST , Service support , Chest X-Ray 05/25/19 18:39 IMPRESSION: No acute process Electronically Signed: Jorge Mayen MD at 18:51 EST , Service support , Abdomen/Pelvis CT 05/25/19 20:57 IMPRESSION: 1. Abnormally thickened gallbladder wall, gallstones, and subtle pericholecystic stranding are all compatible with acute cholecystitis. These findings were not detected on the recent right upper quadrant ultrasound due to poor penetration, body habitus, and bowel gas. 2. Fatty liver 3. No demonstrated acute or significant process of the pancreas. Lobularity seen on the recent ultrasound does not represent a pathologic process. 4. Sigmoid diverticulosis. Electronically Signed: Jorge Mayen MD at 22:25 EST , Service support , Laboratory Results 05/25/19 05/25/19 18:10 18:10 WBC 10.7 RBC 4.39 Hgb 12.6 Hct 40.1 MCV 91.3 MCH 28.7 MCHC 31.4 L RDW Std Deviation 42.8 RDW Coeff of Cora 12.9 Plt Count 322 MPV 10.1 Immature Gran % (Auto) 0.600 Neut % (Auto) 70.9 H Lymph % (Auto) 19.1 [place] % (Auto) 6.6 Eos % (Auto) 2.1 Baso % (Auto) 0.7 Absolute Neuts (auto) 7.6 Absolute Lymphs (auto) 2.05 Nucleated RBC % 0 Sodium 138 Potassium 4.5 Chloride 106 Carbon Dioxide 26.0 Anion Gap 6 BUN 27 H Creatinine 0.78 Estim Creat Clear Calc 39.04 Est GFR (MDRD) Af Amer 93 Est GFR (MDRD) Non-Af 77 BUN/Creatinine Ratio 34.8 H Glucose 115 H Calcium 9.6 Total Bilirubin 0.70 AST 62 H ALT 39 Alkaline Phosphatase 102 Total Protein 7.7 Albumin 3.7 Globulin 4.0 Albumin/Globulin Ratio 0.9 Lipase 583 H - Rhythm Strip Rhythm Strip: Sinus Rhythm Rate: 60 Ectopy: None - EKG Initial EKG Interpretation: Sinus Rhythm, No Acute Injury Pattern - Medical Decision Making Patient feels much better after fentanyl, IV fluids, Zofran, still has positive Nicholson sign, along with a gallbladder ultrasound that shows stone stuck in the neck and some nonspecific abnormality of the pancreas. Her lipase is elevated, suggesting the possibility of choledocholithiasis. She is clinically and hemodynamically stable. For this reason, I think she should be admitted to the hospital for further evaluation. Earlier discussions with surgery indicate that the availability of a surgeon to do ERCP if needed is available this week including tomorrow. Ultrasound showed recommendation for CT based on abnormal contours of the pancreas on ultrasound. This was obtained and showed a normal pancreas, and findings that are consistent with acute cholecystitis. The patient is stable, will be admitted. Discussed with Dr. Becker. ED Disposition - Plan for ED Patient: Disposition: Acute Care [facility] Diagnosis: Acute calculous cholecystitis, Elevated lipase
[2019-05-25] MEDS: 0.9% Normal Saline 1,000 ML 250 ML IV (18:47)
[2019-05-25] MEDS: Ondansetron 4 MG/2 ML Vial IV (18:47)
[2019-05-25] MEDS: fentaNYL 100 MCG/2 ML Ampul 50 MCG IV (18:50)
[2019-05-25 19:06] LABS: Absolute Lymphocyte Count 2.05 X10^3/uL (0.83-4.51); Absolute Neutrophil Count 7.6 X10^3/uL (2.0-7.7); Basophil# 0.08 X10^3/uL; Basophil% 0.7 % (0-1); Eosinophil# 0.22 X10^3/uL; Eosinophils% 2.1 % (0-5); Hematocrit 40.1 % (37-47); Hemoglobin 12.6 g/dL (12.0-15.0); Lymphocyte # 2.05 X10^3/ul (4.0); Lymphocyte % 19.1 % (19-41); Mean Corp Hgb Conc 31.4 g/dL (32-36); Mean Corpuscular Hgb 28.7 pg (27.0-32.0); Mean Corpuscular Volume 91.3 fL (81-99); Mean Platelet Vol. 10.1 fl (6.2-12.0); Monocyte# 0.71 X10^3/uL; Monocyte% 6.6 % (0-10); NRBC Flagged by Analyzer 0 % (0-5); Neutrophil % 70.9 % (47-70); Platelet Count 322 K/mm3 (150-450); RBC Distribution Width CV 12.9 % (11.6-14.6); RBC Distribution Width SD 42.8 fl (35.1-43.9); Red Blood Count 4.39 M/mm3 (4.2-5.4); White Blood Count 10.7 K/mm3 (4.4-11.0)
[2019-05-25 19:21] LABS: ALB/GLOB Ratio 0.9 RATIO (0.9-2.4); AST(SGOT) 62 U/L (15-37); Alanine Aminotransfer ALT/SGPT 39 U/L (13-56); Albumin, Serum 3.7 g/dL (3.2-5.0); Alkaline Phosphatase 102 U/L (45-117); Anion Gap 6 (5-15); BUN 27 mg/dL (7-18); BUN/Creat Ratio 34.8 RATIO (10-20); Calcium,Total 9.6 mg/dL (8.5-10.1); Chloride 106 mmol/L (98-107); Creatinine, Serum 0.78 mg/dL (0.55-1.02); EST Glomerular Filtration Rate 77 mL/min (>60); Est Glom Filt Rate - Afr Amer 93 mL/min (>60); Estimated Creatinine Clearance 39.04 ml/min; Glucose 115 mg/dL (74-106); Lipase 583 U/L (73-393); Potassium 4.5 mmol/L (3.5-5.1); Protein, Total 7.7 g/dL (6.4-8.2); Sodium Level 138 mmol/L (136-145)
--- NOTE | 2019-05-25 20:29 | PCM.HP.STD ---
History of Present Illness The patient is a 73 year old F [] Past Medical History Past Medical History (Chronic Problems): Chronic Problems GERD (gastroesophageal reflux disease) (Chronic) Depression (Chronic) Type 2 diabetes mellitus (Chronic) Hypertension (Chronic) Hyperlipidemia (Chronic) Hip joint replacement status (Chronic) Allergies amlodipine besylate [From Norvasc] Allergy (Verified 11/21/17 10:27) Unknown azithromycin [From Zithromax] Allergy (Verified 11/21/17 10:27) Unknown carbetapentane citrate [From Gentex 30] Allergy (Verified 11/21/17 10:27) Unknown ciprofloxacin [From Cipro] Allergy (Verified 11/21/17 10:27) Unknown ciprofloxacin HCl [From Cipro] Allergy (Verified 11/21/17 10:27) Unknown clarithromycin [From Biaxin] Allergy (Verified 11/21/17 10:27) Unknown guaifenesin [From Gentex 30] Allergy (Verified 11/21/17 10:27) Unknown Penicillins Allergy (Verified 11/21/17 10:27) Unknown phenylephrine HCl [From Gentex 30] Allergy (Verified 11/21/17 10:27) Unknown Dzkklco-Bpw-Rgl Reductase Inhibitor Allergy (Verified 11/21/17 10:27) Unknown Home Medications: Ambulatory Orders Medication Instructions Recorded Aspirin [Aspirin, Baby] 81 mg PO QHS 05/02/14 Cholecalciferol (VIT D3) [Vitamin 1,000 unit PO BID 05/02/14 D3] Clonidine HCl [Catapres] 0.1 mg PO BID 05/02/14 Fluoxetine [Prozac] 40 mg PO DAILY 05/02/14 Gemfibrozil [Lopid] 600 mg PO BIDAC 05/02/14 Losartan Potassium [Cozaar] 100 mg PO DAILY 05/02/14 Multivitamins,Therapeutic 1 tablet PO DAILY 05/02/14 [Multivitamin] Biotin 10,000 mcg PO DAILY 11/13/17 Bupropion HCl [Bupropion Xl] 150 mg PO DAILY 11/13/17 metFORMIN (XR) [Glucophage Xr] 1 tab PO BIDCM 11/13/17 Surgical History: hysterectomy, total hip arthroplasty 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 APPLICATION history Lives: Spouse/ Significant Other Smoking Status: Never smoker Alcohol: None - *Family History Maternal History Items: No pertinent history Paternal History Items: No pertinent history Patient Problems: Active and Suspected Problems Acute calculous cholecystitis (Acute) Elevated lipase (Acute) - Physical Exam Vitals/I&O's: Vital Signs Temp Pulse Resp BP Pulse Ox 97.2 F L 62 14 154/71 H 97 05/25/19 17:35 05/25/19 19:42 05/25/19 19:42 05/25/19 19:42 05/25/19 19:42 Oxygen Delivery Method Room Air Weight: 81.4 kg Body Mass Index (BMI) 32.8 Finger Stick Blood Glucose 308 Laboratory Results 05/25/19 18:10: WBC 10.7, RBC 4.39, Hgb 12.6, Hct 40.1, MCV 91.3, MCH 28.7, MCHC 31.4 L, RDW Std Deviation 42.8, RDW Coeff of Cora 12.9, Plt Count 322, MPV 10.1, Immature Gran % (Auto) 0.600, Neut % (Auto) 70.9 H, Lymph % (Auto) 19.1, [place] % (Auto) 6.6, Eos % (Auto) 2.1, Baso % (Auto) 0.7, Absolute Neuts (auto) 7.6, Absolute Lymphs (auto) 2.05, Nucleated RBC % 0 05/25/19 18:10: Sodium 138, Potassium 4.5, Chloride 106, Carbon Dioxide 26.0, Anion Gap 6, BUN 27 H, Creatinine 0.78, Estim Creat Clear Calc 39.04, Est GFR (MDRD) Af Amer 93, Est GFR (MDRD) Non-Af 77, BUN/Creatinine Ratio 34.8 H, Glucose 115 H, Calcium 9.6, Total Bilirubin 0.70, AST 62 H, ALT 39, Alkaline Phosphatase 102, Total Protein 7.7, Albumin 3.7, Globulin 4.0, Albumin/Globulin Ratio 0.9, Lipase 583 H Current Medications Sodium Chloride () 1,000 mls @ 250 mls/hr IV .Q4H [facility] Last Admin: 05/25/19 18:47 Dose: 250 mls/hr Documented by: Assessment/Plan All Active Problems Acute calculous cholecystitis (Acute) Elevated lipase (Acute)
--- NOTE | 2019-05-25 20:57 | CT_ITS ---
STUDY: CT ABDOMEN AND PELVIS WITH AND WITHOUT CONTRAST REASON FOR EXAM: Female, 73 years old. ABNORMAL PANCREAS ON US, PAIN, ELEVATED LIPASE, CHOLECYSTITIS. Pt is diabetic-Metformin. HTN-rx controlled. RADIATION DOSAGE (If Supplied By Facility): CTDIvol = ( 20.26 ) mGy, DLP = ( 1648.18 ) mGycm TECHNIQUE: Transaxial images were obtained from the dome of the diaphragm to the symphysis pubis without oral contrast. Oral Gastrografin/Isovue 300 100ml was administered. Sagittal and coronal images were reconstructed. Individualized dose optimization techniques were used for this CT. COMPARISON: CT of abdomen and pelvis dated January 26, 2009. Right upper quadrant ultrasound dated May 25, 2019 FINDINGS: There are chronic interstitial fibrotic changes of the lung bases. There is decreased attenuation of the liver consistent with steatosis. Slight elevation the right hemidiaphragm and eventration of the dome of the liver. No intrahepatic biliary duct dilatation or liver mass. The gallbladder wall is abnormally and diffusely thickened maximally measuring 8 mm. Subtle. Cholecystic inflammatory stranding is seen in the subhepatic space near the neck of the gallbladder. Several small gallstones are seen in the neck of the gallbladder. No pericholecystic fluid is visualized. There is tortuosity and redundant folds of the gallbladder. Normal spleen. Unremarkable visualized pancreas. Lobularity seen on the ultrasound does not represent a pathologic process. No evidence of a pancreatic mass or acute pancreatitis. No ductal dilatation is seen. Normal bilateral adrenal glands. Several small cysts are seen in the kidneys. No hydronephrosis or renal masses. No visualized stones. Normal visualized stomach. Normal small intestine. A moderate amount of stool is present in the colon. Mild sigmoid diverticulosis is present. No bowel dilatation or obstruction. No free air or free fluid. The appendix is visualized and appears normal. Normal abdominal aorta. Normal inferior vena cava. Normal retroperitoneum. Unremarkable visualized aspects of the bladder.. Normal abdominal wall. There are diffuse degenerative changes of the visualized lumbar spine. Bilateral hip prostheses are present resulting in metallic artifact and limited visualization of the lower pelvic structures. CT/CT Abd/Pelvis W/WO Contrast IMPRESSION: 1. Abnormally thickened gallbladder wall, gallstones, and subtle pericholecystic stranding are all compatible with acute cholecystitis. These findings were not detected on the recent right upper quadrant ultrasound due to poor penetration, body habitus, and bowel gas. 2. Fatty liver 3. No demonstrated acute or significant process of the pancreas. Lobularity seen on the recent ultrasound does not represent a pathologic process. 4. Sigmoid diverticulosis. Electronically Signed: Jorge Mayen MD at 22:25 EST , Service support ,
--- NOTE | 2019-05-25 21:12 | PCM.HP.STD ---
History of Present Illness Date of Admission: 05/25/19 The patient is a 73 year old F presented to the ER due to right upper quadrant epigastric pain. Patient states this started around 4 PM?patient rated pain 8/10. Patient last ate some peanuts around 1 PM. Patient denies any previous episodes of similar pain. Patient states she does have heartburn about once a month and takes it over the counter antiacid pill when she needs to. Currently patient does states she has some heartburn. Patient CT abdomen pelvis which showed 3 mm gallbladder wall, 4 mm common bile duct, gallstones in the neck of the gallbladder, no pericholecystic fluid, possible nodular/irregular pancreas recommended CT. CT abdomen pelvis with pancreatic protocol ordered in the ER pending. Patient's lipase was slightly elevated at 538 with an normal white blood cell count with a slight left shift, patient's AST is slightly elevated in the 60s rest of liver functions are within normal limits. Patient did have normal bowel function this morning. Patient denies any abdominal surgeries previously. Past Medical History Past Medical History (Chronic Problems): Chronic Problems GERD (gastroesophageal reflux disease) (Chronic) Depression (Chronic) Type 2 diabetes mellitus (Chronic) Hypertension (Chronic) Hyperlipidemia (Chronic) Hip joint replacement status (Chronic) Allergies amlodipine besylate [From Norvasc] Allergy (Verified 11/21/17 10:27) Unknown azithromycin [From Zithromax] Allergy (Verified 11/21/17 10:27) Unknown carbetapentane citrate [From Gentex 30] Allergy (Verified 11/21/17 10:27) Unknown ciprofloxacin [From Cipro] Allergy (Verified 11/21/17 10:27) Unknown ciprofloxacin HCl [From Cipro] Allergy (Verified 11/21/17 10:27) Unknown clarithromycin [From Biaxin] Allergy (Verified 11/21/17 10:27) Unknown guaifenesin [From Gentex 30] Allergy (Verified 11/21/17 10:27) Unknown Penicillins Allergy (Verified 11/21/17 10:27) Unknown phenylephrine HCl [From Gentex 30] Allergy (Verified 11/21/17 10:27) Unknown Svmiasr-Atz-Zwp Reductase Inhibitor Allergy (Verified 11/21/17 10:27) Unknown Home Medications: Ambulatory Orders Medication Instructions Recorded Aspirin [Aspirin, Baby] 81 mg PO QHS 05/02/14 Cholecalciferol (VIT D3) [Vitamin 2,000 unit PO DAILY 05/02/14 D3] Clonidine HCl [Catapres] 0.1 mg PO BID 05/02/14 Fluoxetine [Prozac] 40 mg PO DAILY 05/02/14 Gemfibrozil [Lopid] 600 mg PO BIDAC 05/02/14 Losartan Potassium [Cozaar] 100 mg PO DAILY 05/02/14 Multivitamins,Therapeutic 1 tablet PO DAILY 05/02/14 [Multivitamin] Biotin 10,000 mcg PO DAILY 11/13/17 Bupropion HCl [Bupropion Xl] 150 mg PO DAILY 11/13/17 metFORMIN (XR) [Glucophage Xr] 1,000 mg PO DAILY 11/13/17 Spironolactone 25 mg PO DAILY 05/26/19 Vit C/Ascorb Sod/Multivit-Min 500 mg PO DAILY 05/26/19 [Emergen-C 500 mg Chewable Tab] Vitamin B Complex 150 mg PO DAILY 05/26/19 Surgical History: hysterectomy - vaginal, total hip arthroplasty - Bilateral, - - Left wrist, right foot Psychiatric History: Depression 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 Denies: Chills Eyes: Denies: Blurred vision HEENT: Denies: Difficulty Swallowing Cardiovascular: Denies: Chest Pain Respiratory: Denies: Shortness of Breath Gastrointestinal: Reports: Abdominal Pain, Dyspepsia, Nausea. Denies: Diarrhea, Vomiting Genitourinary: Denies: Dysuria Skin: Denies: Rash Neurological: Denies: Slurred speech Psychiatric: Reports: Anxiety Hematologic/ Lymphatic: Denies: Anemia VTE Information - Inpt Only VTE Present on Admission: Yes VTE Mechan Device Prophylaxis: SCD's Patient Problems: Active and Suspected Problems Acute calculous cholecystitis (Acute) Elevated lipase (Acute) Pancreatitis, gallstone (Acute) - Physical Exam Vitals/I&O's: Vital Signs Temp Pulse Resp BP Pulse Ox 97.2 F L 62 21 H 178/73 H 97 05/25/19 17:35 05/25/19 21:06 05/25/19 21:06 05/25/19 21:06 05/25/19 21:06 Oxygen Delivery Method Room Air Weight: 179 lb 7.3 oz Body Mass Index (BMI) 32.8 Finger Stick Blood Glucose 308 General: Alert, Oriented x3, Cooperative, No apparent distress HEENT: Atraumatic Lungs: Normal air movement Cardiovascular: Regular rate Abdomen: Soft, Non-Distended, Tender - Right upper quadrant and epigastric, no guarding or rebound Extremities: No clubbing, No cyanosis, No edema Neurological: Cranial nerves II-XII grossly intact Psych/Mental Status: Normal Affect Laboratory Results 05/25/19 18:10: WBC 10.7, RBC 4.39, Hgb 12.6, Hct 40.1, MCV 91.3, MCH 28.7, MCHC 31.4 L, RDW Std Deviation 42.8, RDW Coeff of Cora 12.9, Plt Count 322, MPV 10.1, Immature Gran % (Auto) 0.600, Neut % (Auto) 70.9 H, Lymph % (Auto) 19.1, [place] % (Auto) 6.6, Eos % (Auto) 2.1, Baso % (Auto) 0.7, Absolute Neuts (auto) 7.6, Absolute Lymphs (auto) 2.05, Nucleated RBC % 0 05/25/19 18:10: Sodium 138, Potassium 4.5, Chloride 106, Carbon Dioxide 26.0, Anion Gap 6, BUN 27 H, Creatinine 0.78, Estim Creat Clear Calc 39.04, Est GFR (MDRD) Af Amer 93, Est GFR (MDRD) Non-Af 77, BUN/Creatinine Ratio 34.8 H, Glucose 115 H, Calcium 9.6, Total Bilirubin 0.70, AST 62 H, ALT 39, Alkaline Phosphatase 102, Total Protein 7.7, Albumin 3.7, Globulin 4.0, Albumin/Globulin Ratio 0.9, Lipase 583 H Current Medications Sodium Chloride () 1,000 mls @ 250 mls/hr IV .Q4H [facility] Last Admin: 05/25/19 18:47 Dose: 250 mls/hr Documented by: Assessment/Plan All Active Problems Acute calculous cholecystitis (Acute) Elevated lipase (Acute) Pancreatitis, gallstone (Acute) 73-year-old female with cholelithiasis/cholecystitis, pancreatitis likely due to gallstone pancreatitis 1. CT abdomen pelvis with pancreatic protocol is ordered to evaluate for the possible irregular/nodular pancreas seen on ultrasound. If that is normal plan to admit patient to the floor keep n.p.o./IV fluids. 2. Reviewed the anatomy with the patient and discussed the procedure: laparoscopic cholecystectomy with cholangiograms, possible open. Review risks including but not limited to bleeding, infection, hernia, bile leak, retained gallstones requiring another procedure ERCP- Endoscopic Retrograde Cholangiopancreatography, injury to another organ (bile ducts, common bile duct, small bowel, etc.) require transfer to tertiary care facility and conversion to an open procedure. All questions were answered. Would plan for surgery tomorrow unsure of time currently, as long as CT abdomen pelvis not show anything else suspicious. Addendum CT did not show anything suspicious about the pancreas did show acute cholecystitis. Joaquina Becker M.D. Pager: [phone] [facility] [address] [place] [address], [address] [place] [address] Office: [phone]
--- NOTE | 2019-05-25 21:52 | CON.PCM_ITS ---
Problem List (1) Pancreatitis, gallstone Status: Acute (2) Type 2 diabetes mellitus Status: Chronic (3) Elevated lipase Status: Acute (4) Hyperlipidemia Status: Chronic Reason for Consult Date of Consultation: 05/25/19 Reason for Consultation: Medical management History of Present Illness: The patient is a 73 year old F with a significant history of hypertension; diabetes mellitus; and hyperlipidemia who presented with excruciating sudden onset nonradiating epigastric pain that started at 4:15 PM on the day of presentation. Associated with her symptoms is nausea without vomiting; and anorexia.. She denies any aggravating or ameliorating factors. Her pain is been progressively worsening. Her bowels move on the day of presentation. At the emergency department her lipase was elevated. Ultrasound showed irregularity of the gallbladder for which reason CT scan of her abdomen was ordered. General surgery has been consulted internal medicine for medical management. Past Medical History Past Medical History (Chronic Problems): Chronic Problems GERD (gastroesophageal reflux disease) (Chronic) Depression (Chronic) Type 2 diabetes mellitus (Chronic) Hypertension (Chronic) Hyperlipidemia (Chronic) Hip joint replacement status (Chronic) Allergies amlodipine besylate [From Norvasc] Allergy (Verified 11/21/17 10:27) Unknown azithromycin [From Zithromax] Allergy (Verified 11/21/17 10:27) Unknown carbetapentane citrate [From Gentex 30] Allergy (Verified 11/21/17 10:27) Unknown chlorhexidine Allergy (Verified 05/25/19 21:47) Unknown ciprofloxacin [From Cipro] Allergy (Verified 11/21/17 10:27) Unknown ciprofloxacin HCl [From Cipro] Allergy (Verified 11/21/17 10:27) Unknown clarithromycin [From Biaxin] Allergy (Verified 11/21/17 10:27) Unknown guaifenesin [From Gentex 30] Allergy (Verified 11/21/17 10:27) Unknown Penicillins Allergy (Verified 11/21/17 10:27) Unknown phenylephrine HCl [From Gentex 30] Allergy (Verified 11/21/17 10:27) Unknown Ybicvhk-Mhe-Gnl Reductase Inhibitor Allergy (Verified 11/21/17 10:27) Unknown Home Medications: Ambulatory Orders Medication Instructions Recorded Aspirin [Aspirin, Baby] 81 mg PO QHS 05/02/14 Cholecalciferol (VIT D3) [Vitamin 1,000 unit PO BID 05/02/14 D3] Clonidine HCl [Catapres] 0.1 mg PO BID 05/02/14 Fluoxetine [Prozac] 40 mg PO DAILY 05/02/14 Gemfibrozil [Lopid] 600 mg PO BIDAC 05/02/14 Losartan Potassium [Cozaar] 100 mg PO DAILY 05/02/14 Multivitamins,Therapeutic 1 tablet PO DAILY 05/02/14 [Multivitamin] Biotin 10,000 mcg PO DAILY 11/13/17 Bupropion HCl [Bupropion Xl] 150 mg PO DAILY 11/13/17 metFORMIN (XR) [Glucophage Xr] 1 tab PO BIDCM 11/13/17 Surgical History: total hip arthroplasty - Bilateral, - - Left wrist, right foot Psychiatric History: Depression CODE ENFORCEMENT INSPECTOR 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 Paternal History Items: Heart Disease Review of Systems Constitutional: Reports: Anorexia. Denies: Chills, Fever, Weight Change HEENT: Denies: Head Aches, Sinus Congestion, Sinus Drainage Cardiovascular: Denies: Chest Pain, Palpitations Respiratory: Denies: Cough, Shortness of breath at rest, Sputum production Gastrointestinal: Reports: Abdominal Pain, Nausea. Denies: Vomiting Genitourinary: Denies: Dysuria Musculoskeletal: Denies: Joint Pain, Joint Tenderness Skin: Denies: Rash, Wounds Neurological: Denies: Numbness, Tingling, Focal weakness Psychiatric: Reports: Anxiety. Denies: Homicidal Ideations, Suicidal Ideations Hematologic/ Lymphatic: Denies: Easy Bruising, Easy Bleeding Patient Problems: Active and Suspected Problems Acute calculous cholecystitis (Acute) Elevated lipase (Acute) Pancreatitis, gallstone (Acute) - Physical Exam Vitals/I&O's: Vital Signs Temp Pulse Resp BP Pulse Ox 97.2 F L 62 21 H 178/73 H 97 05/25/19 17:35 05/25/19 21:06 05/25/19 21:06 05/25/19 21:06 05/25/19 21:06 Oxygen Delivery Method Room Air Weight: 81.4 kg Body Mass Index (BMI) 32.8 Finger Stick Blood Glucose 308 General: Alert, Oriented x3, Cooperative HEENT: Atraumatic, PERRLA, EOMI, Normocephalic Neck: Supple, No JVD, Negative Carotid Bruits Lungs: Clear to auscultation, Normal air movement Cardiovascular: Regular rate, No murmurs Abdomen: Bowel Sounds Present, Soft, Tender - Right upper and right lower quadrants. Extremities: No edema, Capillary Refill Less than 3 Seconds Skin: No rashes, No breakdown Musculoskeletal: No Tenderness to Palpation of Joints or Extremities Neurological: Cranial nerves II-XII grossly intact Psych/Mental Status: Normal Affect, Appropriate Laboratory Results 05/25/19 18:10: WBC 10.7, RBC 4.39, Hgb 12.6, Hct 40.1, MCV 91.3, MCH 28.7, MCHC 31.4 L, RDW Std Deviation 42.8, RDW Coeff of Cora 12.9, Plt Count 322, MPV 10.1, Immature Gran % (Auto) 0.600, Neut % (Auto) 70.9 H, Lymph % (Auto) 19.1, [place] % (Auto) 6.6, Eos % (Auto) 2.1, Baso % (Auto) 0.7, Absolute Neuts (auto) 7.6, Absolute Lymphs (auto) 2.05, Nucleated RBC % 0 05/25/19 18:10: Sodium 138, Potassium 4.5, Chloride 106, Carbon Dioxide 26.0, Anion Gap 6, BUN 27 H, Creatinine 0.78, Estim Creat Clear Calc 39.04, Est GFR (MDRD) Af Amer 93, Est GFR (MDRD) Non-Af 77, BUN/Creatinine Ratio 34.8 H, Glucose 115 H, Calcium 9.6, Total Bilirubin 0.70, AST 62 H, ALT 39, Alkaline Phosphatase 102, Total Protein 7.7, Albumin 3.7, Globulin 4.0, Albumin/Globulin Ratio 0.9, Lipase 583 H Current Medications Sodium Chloride () 1,000 mls @ 250 mls/hr IV .Q4H [facility] Last Admin: 05/25/19 18:47 Dose: 250 mls/hr Documented by: Pantoprazole Sodium 40 mg/ (Sodium Chloride) 110 mls @ 330 mls/hr IV Q24 [facility] Meropenem 1 gm/ Sodium (Chloride) 120 mls @ 33 mls/hr IV Q8H [facility] Assessment/Plan All Active Problems Acute calculous cholecystitis (Acute) Elevated lipase (Acute) Pancreatitis, gallstone (Acute) The patient is a 73 year old F with a significant history of hypertension; diabetes mellitus; and hyperlipidemia who presented with excruciating sudden onset nonradiating epigastric pain; elevated lipase and ultrasonographic evidence of gallstones consistent with probable gallbladder pancreatitis. Gallbladder pancreatitis Management by general surgery. Hypertension On presentation her blood pressure was not within goal Per general surgery it is okay for patient to take her meds. Cozaar and clonidine continued. Add PRN hydralazine. Depression Prozac continued Diabetes mellitus With hyperglycemia Metformin held in view of acute illness and contrast use. Will check Accu-Chek every 6 hours but no correction scale since blood glucose on BMP was only 115. DVT prophylaxis On SCDs. Code Visit Office Visits / Consults: [id number] IP Consult L2
[2019-05-25 22:20] LABS: Bacteria 0 SEEN /hpf (None Seen); Mucous, Urine 0 SEEN /hpf (<or=2+); Red Blood Cells-Urine 0 SEEN /hpf (0-5)
[2019-05-25 22:21] LABS: Color, Urine Yellow (Yellow); Glucose, Dipstick Normal (Normal); Ketone-Dipstick Negative (Negative); Leukocyte Esterase-Dipstick 25 /ul (Negative); Nitrite-Dipstick Negative (Negative); Occult Blood-Urine Negative /ul (Negative); Protein-Dipstick Negative (Negative); Urine Bilirubin Dipstick Negative (Negative); Urine Clarity Clear (Clear); Urine Urobilinogen Normal (Normal); Urine pH 6.5 (5.0 - 8.0)
[2019-05-25 22:29] LABS: Squamous Epithelial Cells - UA 0-5 SEEN /hpf (5-10)
[2019-05-25 22:30] LABS: White Blood Cells 0-5 SEEN /hpf (0-5)
[2019-05-25] MEDS: cloNIDine HCl 0.1 MG Tablet PO (23:39)
[2019-05-25] MEDS: Lactated Ringers 1,000 ML 130 ML IV (23:43)
[2019-05-25 23:51] LABS: Bedside Glucose 124 mg/dL (70-110)
[2019-05-26] VITALS (17 sets, daily range): BP systolic 118–188; BP diastolic 53–80; PULSE 63–85; RESP 16–18; TEMP 36.2–37.9; O2SAT 92–96; BMI 33.0; BMI 33.1
[2019-05-26] MEDS: Morphine 2 MG/ML Syringe IV ×4 (00:46→21:59)
[2019-05-26 05:55] LABS: Absolute Lymphocyte Count 0.75 X10^3/uL (0.83-4.51); Absolute Neutrophil Count 11.1 X10^3/uL (2.0-7.7); Basophil# 0.04 X10^3/uL; Basophil% 0.3 % (0-1); Eosinophil# 0.05 X10^3/uL; Eosinophils% 0.4 % (0-5); Hematocrit 37.3 % (37-47); Hemoglobin 12.4 g/dL (12.0-15.0); Lymphocyte # 0.75 X10^3/ul (4.0); Lymphocyte % 5.9 % (19-41); Mean Corp Hgb Conc 33.2 g/dL (32-36); Mean Corpuscular Volume 90.3 fL (81-99); Mean Platelet Vol. 9.9 fl (6.2-12.0); Monocyte% 6.3 % (0-10); NRBC Flagged by Analyzer 0 % (0-5); Neutrophil # 11.09 X10^3/uL (2.7-7.7); Neutrophil % 86.6 % (47-70); Platelet Count 286 K/mm3 (150-450); RBC Distribution Width CV 12.7 % (11.6-14.6); RBC Distribution Width SD 42.3 fl (35.1-43.9); Red Blood Count 4.13 M/mm3 (4.2-5.4); White Blood Count 12.8 K/mm3 (4.4-11.0)
[2019-05-26 05:58] LABS: AST(SGOT) 149 U/L (15-37); Alanine Aminotransfer ALT/SGPT 99 U/L (13-56); Albumin, Serum 3.2 g/dL (3.2-5.0); Alkaline Phosphatase 119 U/L (45-117); Anion Gap 6 (5-15); BUN 17 mg/dL (7-18); BUN/Creat Ratio 24.6 RATIO (10-20); Bilirubin, Direct 0.45 mg/dL (0.00-0.30); Calcium,Total 8.5 mg/dL (8.5-10.1); Chloride 107 mmol/L (98-107); Creatinine, Serum 0.69 mg/dL (0.55-1.02); EST Glomerular Filtration Rate 88 mL/min (>60); Est Glom Filt Rate - Afr Amer 107 mL/min (>60); Estimated Creatinine Clearance 39.04 ml/min; Globulin 3.5 g/dL (2.2-4.2); Glucose 152 mg/dL (74-106); Lipase 82 U/L (73-393); Potassium 4.1 mmol/L (3.5-5.1); Protein, Total 6.7 g/dL (6.4-8.2); Sodium Level 138 mmol/L (136-145)
[2019-05-26 06:01] LABS: Bedside Glucose 156 mg/dL (70-110)
[2019-05-26] MEDS: Lactated Ringers 1,000 ML 130 ML IV (06:41)
[2019-05-26 07:56] LABS: Hemoglobin A1c 8.6 % (4.2-6.3)
--- NOTE | 2019-05-26 08:10 | PCM.PN.SRG ---
Patient Problems: Active and Suspected Problems Acute calculous cholecystitis (Acute) Elevated lipase (Acute) Pancreatitis, gallstone (Acute) Subjective: Patient still has right upper quadrant epigastric pain did take 1 of morphine for this, patient's white blood cell as well as LFTs are all up a little bit today - Physical Exam Vitals/I&O's: Vital Signs Temp Pulse Resp BP Pulse Ox 98.8 F 71 16 121/54 H 95 05/26/19 07:49 05/26/19 07:49 05/26/19 07:34 05/26/19 07:49 05/26/19 07:49 Oxygen Delivery Method Room Air Weight: 180 lb 12.465 oz Body Mass Index (BMI) 33.0 Finger Stick Blood Glucose 308 Intake and Output for Last 24 Hours 05/24/19 05/25/19 05/26/19 23:59 23:59 23:59 Intake Total 1170 / 1170 1025.67 / 1025.67 Output Total 700 / 700 Balance 1170 / 1170 325.67 / 325.67 General: Alert, Oriented x3, Cooperative, No apparent distress HEENT: Atraumatic Lungs: Normal air movement Cardiovascular: Regular rate Abdomen: Soft, Distended - Mild, Tender - Right upper quadrant and epigastric, equivocal rebound, no guarding Extremities: No clubbing, No cyanosis, No edema Neurological: Cranial nerves II-XII grossly intact Laboratory Results 05/25/19 18:10: WBC 10.7, RBC 4.39, Hgb 12.6, Hct 40.1, MCV 91.3, MCH 28.7, MCHC 31.4 L, RDW Std Deviation 42.8, RDW Coeff of Cora 12.9, Plt Count 322, MPV 10.1, Immature Gran % (Auto) 0.600, Neut % (Auto) 70.9 H, Lymph % (Auto) 19.1, [place] % (Auto) 6.6, Eos % (Auto) 2.1, Baso % (Auto) 0.7, Absolute Neuts (auto) 7.6, Absolute Lymphs (auto) 2.05, Nucleated RBC % 0 05/25/19 18:10: Sodium 138, Potassium 4.5, Chloride 106, Carbon Dioxide 26.0, Anion Gap 6, BUN 27 H, Creatinine 0.78, Estim Creat Clear Calc 39.04, Est GFR (MDRD) Af Amer 93, Est GFR (MDRD) Non-Af 77, BUN/Creatinine Ratio 34.8 H, Glucose 115 H, Calcium 9.6, Total Bilirubin 0.70, AST 62 H, ALT 39, Alkaline Phosphatase 102, Total Protein 7.7, Albumin 3.7, Globulin 4.0, Albumin/Globulin Ratio 0.9, Lipase 583 H 05/25/19 22:16: Urine Color Yellow, Urine Clarity Clear, Urine pH 6.5, Ur Specific [place] 1.010, Urine Protein Negative, Urine Glucose (UA) Normal, Urine Ketones Negative, Urine Occult Blood Negative, Urine Nitrite Negative, Urine Bilirubin Negative, Urine Urobilinogen Normal, Ur Leukocyte Esterase 25 H, Urine RBC 0 SEEN, Urine WBC 0-5 SEEN, Ur Squamous Epith Cells 0-5 SEEN, Urine Bacteria 0 SEEN, Urine Mucus 0 SEEN 05/25/19 23:31: POC Glucose 124 H 05/26/19 05:04: WBC 12.8 H, RBC 4.13 L, Hgb 12.4, Hct 37.3, MCV 90.3, MCH 30.0, MCHC 33.2, RDW Std Deviation 42.3, RDW Coeff of [place]a 12.7, Plt Count 286, MPV 9.9, Immature Gran % (Auto) 0.500, Neut % (Auto) 86.6 H, Lymph % (Auto) 5.9 L, [place] % (Auto) 6.3, Eos % (Auto) 0.4, Baso % (Auto) 0.3, Absolute Neuts (auto) 11.1 H, Absolute Lymphs (auto) 0.75 L, Nucleated RBC % 0 05/26/19 05:04: Sodium 138, Potassium 4.1, Chloride 107, Carbon Dioxide 25.0, Anion Gap 6, BUN 17, Creatinine 0.69, Estim Creat Clear Calc 39.04, Est GFR (MDRD) Af Amer 107, Est GFR (MDRD) Non-Af 88, BUN/Creatinine Ratio 24.6 H, Glucose 152 H, Calcium 8.5, Total Bilirubin 1.40 H, Direct Bilirubin 0.45 H, AST 149 H, ALT 99 H, Alkaline Phosphatase 119 H, Total Protein 6.7, Albumin 3.2, Globulin 3.5, Lipase 82 05/26/19 05:04: Hemoglobin A1c 8.6 H 05/26/19 05:56: POC Glucose 156 H Current Medications Bupropion HCl (Wellbutrin Xl) 150 mg PO DAILY [facility] Clonidine (Catapres) 0.1 mg PO BID [facility] Last Admin: 05/25/19 23:39 Dose: 0.1 mg Documented by: Fluoxetine HCl (Prozac) 40 mg PO DAILY [facility] Glucagon () 1 mg IM .X1 PRN PRN Reason: Hypoglycemia Hydralazine HCl (Apresoline Iv) 5 mg IV Q4H PRN PRN PRN Reason: SBP > 160 Meropenem 1 gm/ Sodium (Chloride) 120 mls @ 33 mls/hr IV Q8H [facility] Last Admin: 05/26/19 05:15 Dose: 33 mls/hr Documented by: Lactated Ringer's () 1,000 mls @ 130 mls/hr IV .Q7H42M [facility] Last Admin: 05/26/19 06:41 Dose: 130 mls/hr Documented by: Pantoprazole Sodium 40 mg/ (Sodium Chloride) 110 mls @ 330 mls/hr IV Q24H [facility] Dextrose (Dextrose 10%-Water) 250 mls @ 999 mls/hr IV .Q16M PRN; Protocol PRN Reason: HYPOGLYCEMIA Losartan Potassium (Cozaar) 100 mg PO DAILY [facility] Morphine Sulfate () 1 - 3 mg IV Q2H PRN PRN PRN Reason: Pain Score 1-10/10 Last Admin: 05/26/19 00:46 Dose: 1 mg Documented by: Ondansetron HCl (Zofran) 4 mg IV Q8H PRN PRN PRN Reason: NAUSEA Sodium Chloride () 10 - 40 ml IV UD PRN PRN Reason: SALINE FLUSH Medical Necessity - Tobacco Use Smoking Status: Never smoker Assessment/Plan All Active Problems Acute calculous cholecystitis (Acute) Elevated lipase (Acute) Pancreatitis, gallstone (Acute) 73-year-old female with cholelithiasis/cholecystitis, pancreatitis likely due to gallstone pancreatitis 1. Plan for laparoscopic cholecystectomy with cholangiograms, possible open today. Patient's white blood cell count and LFTs are up likely due to acute cholecystitis. No further questions this morning. Joaquina Becker M.D. Pager: [phone] [facility] [address] [place] [address], [address] [place] [address] Office: [phone]
--- NOTE | 2019-05-26 09:57 | PN_ITS ---
Patient Problems: Active and Suspected Problems Acute calculous cholecystitis (Acute) Elevated lipase (Acute) Pancreatitis, gallstone (Acute) Reason for Visit: pancreatitis Subjective: Feeling better, though still with abdominal pain. Began acutely. Never had this prior. Vitals/I&O's: Vital Signs Temp Pulse Resp BP Pulse Ox 37.1 C 71 16 121/54 H 95 05/26/19 07:49 05/26/19 07:49 05/26/19 07:34 05/26/19 07:49 05/26/19 07:49 Oxygen Delivery Method Room Air Weight: 82 kg Body Mass Index (BMI) 33.0 Finger Stick Blood Glucose 308 Intake and Output for Last 24 Hours 05/24/19 05/25/19 05/26/19 23:59 23:59 23:59 Intake Total 1170 / 1170 1025.67 / 1025.67 Output Total 700 / 700 Balance 1170 / 1170 325.67 / 325.67 General: Alert, Cooperative, No apparent distress HEENT: Atraumatic, Normocephalic Oral: Moist Mucosa, No Gingival or Mucosal Lesions/ Ulcerations Neck: No Nodes, Trachea Midline Lungs: Clear to auscultation, Normal air movement, No rhonchi, No wheeze, No rales Cardiovascular: Regular rate, Regular Rhythm, Normal S1, Normal S2, No murmurs Abdomen: Bowel Sounds Present, Soft, Non-Distended, - - RUQ and epigastric abdominal pain. Extremities: No edema, No Calf Tenderness Skin: No rashes, No breakdown Psych/Mental Status: Normal Affect, Appropriate Laboratory Results 05/25/19 18:10: WBC 10.7, RBC 4.39, Hgb 12.6, Hct 40.1, MCV 91.3, MCH 28.7, MCHC 31.4 L, RDW Std Deviation 42.8, RDW Coeff of Cora 12.9, Plt Count 322, MPV 10.1, Immature Gran % (Auto) 0.600, Neut % (Auto) 70.9 H, Lymph % (Auto) 19.1, [place] % (Auto) 6.6, Eos % (Auto) 2.1, Baso % (Auto) 0.7, Absolute Neuts (auto) 7.6, Absolute Lymphs (auto) 2.05, Nucleated RBC % 0 05/25/19 18:10: Sodium 138, Potassium 4.5, Chloride 106, Carbon Dioxide 26.0, Anion Gap 6, BUN 27 H, Creatinine 0.78, Estim Creat Clear Calc 39.04, Est GFR (MDRD) Af Amer 93, Est GFR (MDRD) Non-Af 77, BUN/Creatinine Ratio 34.8 H, Glucose 115 H, Calcium 9.6, Total Bilirubin 0.70, AST 62 H, ALT 39, Alkaline Phosphatase 102, Total Protein 7.7, Albumin 3.7, Globulin 4.0, Albumin/Globulin Ratio 0.9, Lipase 583 H 05/25/19 22:16: Urine Color Yellow, Urine Clarity Clear, Urine pH 6.5, Ur Specific Inlet 1.010, Urine Protein Negative, Urine Glucose (UA) Normal, Urine Ketones Negative, Urine Occult Blood Negative, Urine Nitrite Negative, Urine Bilirubin Negative, Urine Urobilinogen Normal, Ur Leukocyte Esterase 25 H, Urine RBC 0 SEEN, Urine WBC 0-5 SEEN, Ur Squamous Epith Cells 0-5 SEEN, Urine Bacteria 0 SEEN, Urine Mucus 0 SEEN 05/25/19 23:31: POC Glucose 124 H 05/26/19 05:04: WBC 12.8 H, RBC 4.13 L, Hgb 12.4, Hct 37.3, MCV 90.3, MCH 30.0, MCHC 33.2, RDW Std Deviation 42.3, RDW Coeff of Cora 12.7, Plt Count 286, MPV 9.9, Immature Gran % (Auto) 0.500, Neut % (Auto) 86.6 H, Lymph % (Auto) 5.9 L, [place] % (Auto) 6.3, Eos % (Auto) 0.4, Baso % (Auto) 0.3, Absolute Neuts (auto) 11.1 H, Absolute Lymphs (auto) 0.75 L, Nucleated RBC % 0 05/26/19 05:04: Sodium 138, Potassium 4.1, Chloride 107, Carbon Dioxide 25.0, Anion Gap 6, BUN 17, Creatinine 0.69, Estim Creat Clear Calc 39.04, Est GFR (MDRD) Af Amer 107, Est GFR (MDRD) Non-Af 88, BUN/Creatinine Ratio 24.6 H, Glucose 152 H, Calcium 8.5, Total Bilirubin 1.40 H, Direct Bilirubin 0.45 H, AST 149 H, ALT 99 H, Alkaline Phosphatase 119 H, Total Protein 6.7, Albumin 3.2, Globulin 3.5, Lipase 82 05/26/19 05:04: Hemoglobin A1c 8.6 H 05/26/19 05:56: POC Glucose 156 H Current Medications Bupropion HCl (Wellbutrin Xl) 150 mg PO DAILY [facility] Clonidine (Catapres) 0.1 mg PO BID [facility] Last Admin: 05/25/19 23:39 Dose: 0.1 mg Documented by: Fluoxetine HCl (Prozac) 40 mg PO DAILY [facility] Glucagon () 1 mg IM .X1 PRN PRN Reason: Hypoglycemia Hydralazine HCl (Apresoline Iv) 5 mg IV Q4H PRN PRN PRN Reason: SBP > 160 Meropenem 1 gm/ Sodium (Chloride) 120 mls @ 33 mls/hr IV Q8H [facility] Last Admin: 05/26/19 05:15 Dose: 33 mls/hr Documented by: Lactated Ringer's () 1,000 mls @ 130 mls/hr IV .Q7H42M [facility] Last Admin: 05/26/19 06:41 Dose: 130 mls/hr Documented by: Pantoprazole Sodium 40 mg/ (Sodium Chloride) 110 mls @ 330 mls/hr IV Q24H [facility] Dextrose (Dextrose 10%-Water) 250 mls @ 999 mls/hr IV .Q16M PRN; Protocol PRN Reason: HYPOGLYCEMIA Losartan Potassium (Cozaar) 100 mg PO DAILY [facility] Morphine Sulfate () 1 - 3 mg IV Q2H PRN PRN PRN Reason: Pain Score 1-10/10 Last Admin: 05/26/19 00:46 Dose: 1 mg Documented by: Ondansetron HCl (Zofran) 4 mg IV Q8H PRN PRN PRN Reason: NAUSEA Sodium Chloride () 10 - 40 ml IV UD PRN PRN Reason: SALINE FLUSH STROKE Vital Signs/Narrative: Vital Signs Temp Pulse Resp BP Pulse Ox 05/26/19 07:49 37.1 C 71 121/54 H 95 05/26/19 07:34 37.1 C 71 16 121/54 H 95 Medical Necessity - Tobacco Use Smoking Status: Never smoker Assessment/Plan All Active Problems Acute calculous cholecystitis (Acute) Elevated lipase (Acute) Pancreatitis, gallstone (Acute) 1. Acute cholecystitis * plan for cholecystectomy today, laparoscopic v open * on meropenem 2. Acute Pancreatitis * mild, lipase slightly elevated on admission, now normalized * supportive mgmt 3. HTN * controlled * resume home meds when able 4. DM2 * oral meds held * add SSI 5. VTE prophylaxis: SCDs Code Visit Inpatient E&M: 59689 Subs Hosp L2
--- NOTE | 2019-05-26 10:30 | GALL_PTH ---
PATIENT: KATHY MORTENSEN LOC: MS3 U#:[id number] AGE/SX: 73/F ROOM: TX302 RE05/26/[address]: Dr. Toby Orellana DO : 1945 BED: 1 DIS: 05/28/2019 SPEC #: [id number] RECD: 05/26/19 13:24 STATUS: GRISELDA REQ #: [id number] [place]: 05/26/19 10:[address]: Joaquina Becker DEPT: SURGICAL PATHOLOGY RECD BY: Jose Wallace ENTERED: 05/26/19 14:04 SP TYPE: CATRACHITA HARPER DR: DO Dr. Yonny Villarreal MD Dr. Jordan Garrison, DO Tissues: Gallbladder, NOS Procedures: Surgery Specimen Level III HEADER OPERATION: Laparoscopic cholecystectomy with IOC PRE-OP DIAGNOSIS: Acute calculous cholecystitis TISSUE SUBMITTED: Gallbladder MICROSCOPIC DIAGNOSIS Gallbladder, cholecystectomy: Chronic cholecystitis and cholelithiasis. AM:manny 05/27/19 MICROSCOPIC DESCRIPTION Slides are reviewed. GROSS DESCRIPTION Received is one container labeled with the patient's name and designated gallbladder. The specimen consists of a gallbladder measuring 9 cm in length and up to 0.5 cm in diameter. The external surface is pink-walker, smooth and glistening for the most part. Focally it is granular, hemorrhagic and contains cautery artifact. The gallbladder contains green-yellow mucoid bile and four, variable sized, brown stones measuring in aggregate 2.5 x 2 x 0.5 cm and 1 to 1.3 cm in greatest dimension. The mucosa is bile-stained and without any mass lesions. The gallbladder wall measures 0.1 cm in thickness. [employer] Sales Consultant sections from the gallbladder and the cystic duct are submitted in one cassette. / SJ:manny 05/26/19 TC:3 CPT: 76949
--- NOTE | 2019-05-26 10:57 | RAD_ITS ---
STUDY: INTRAOPERATIVE CHOLANGIOGRAM. REASON FOR EXAM: Female, 73 years old. LAP LILIBETH -- 11.1 FLUORO SEC, 6.92mGy, 1 CINE RUN PLUS 1 FLUORO SPOT FLUOROSCOPY TIME (if supplied): ( 11 seconds ) minutes/seconds TECHNIQUE: An intraoperative Cholangiogram was performed by the surgeon. Imaging was submitted. COMPARISON: None. FINDINGS: Minimally dilated common bile duct and central intrahepatic biliary ducts. No intraluminal filling defect is seen. There is free flow of contrast into the duodenum. RAD/Cholangiogram/ O R,Initial IMPRESSION: Unremarkable intraoperative cholangiogram. Electronically Signed: Colin Fletcher, at 12:57 EST , Service support ,
[2019-05-26] MEDS: Bupivacaine Mpf 0.5% 30 ML VIAL (11:38)
--- NOTE | 2019-05-26 11:40 | OP.PCM_ITS ---
Report of Operation Date of Procedure: 05/26/19 Pre-Operative Diagnosis: Gallstone pancreatitis, acute cholecystitis Post-Operative Diagnosis: Same Surgery/Procedure Performed:: Laparoscopic cholecystectomy with cholangiograms wet process miller: Hardik Rome Type of Anesthesia:: General/Supplemental Anesthesiologist: Jean Claude Butler Special Medications: Patient on meropenem 1 g every 8 IV on the floor for acute cholecystitis Specimen's removed: Gallbladder Estimated Blood Loss (mL): 20 cc Fluids Replaced: 1300 cc Description of Procedure: Indications this is a 73 year-old male who developed abdominal pain/nausea and on workup was found to have cholelithiasis, pancreatitis, with a normal common bile duct, elevated liver functions this a.m. Laparoscopic cholecystectomy was elected. Description procedure: The patient was placed on operating table in supine position. General Anesthesia was induced. A timeout was completed verifying correct patient, procedure, site, position and special equipment prior to beginning procedure. The abdomen was prepped and draped in usual sterile fashion. An incision was made in the natural skin line above the umbilicus. The fascia was elevated and incised. The peritoneum was elevated and incised. Entry into the peritoneum was confirmed visually and no bowel was noted in the vicinity of the incision. Venegas trocar was placed. The abdomen was insufflated with carbon dioxide to a pressure of 12-15 mmHg. Patient tolerated insufflation well. The laparoscope was then inserted and abdomen inspected. No injuries from initial trocar placement were noted. Additional trochars were then inserted in the following locations 5 mm trocar in the epigastrium and 2 more 5 mm trochars along the right costal margin. The abdomen was inspected no abnormalities were found. The table is placed in reverse Trendelenburg position with the right side up. The adhesions between the gallbladder and omentum were lysed sharply. The dome of the gallbladder was grasped with atraumatic grasper passed through the lateral port and retracted over the dome of the liver. Infundibulum was then grasped with atraumatic grasper through the midclavicular port and retracted to the right lower quadrant. This maneuver exposed Calot's triangle. The peritoneum overlying the gallbladder infundibulum was then incised and cystic duct and artery identified and circumferentially dissected. Montano catheter was used for cholangiograms. The cholangiogram showed good filling of the common bile duct into the duodenum with no filling defects, good filling of the right and left bile ducts as well. The cystic duct and artery were then doubly clipped and divided close to the gallbladder. The gallbladder then dissected from its peritoneal attachments by electrocautery. Hemostasis was checked and the gallbladder and contained stones were removed using the endoscopic retrieval bag through the umbilical port. The gallbladder is passed off table as specimen. The gallbladder fossa was copiously irrigated with saline and hemostasis obtained. There is no evidence of bleeding from the gallbladder fossa or cystic artery leakage of bile from the cystic duct stump. Secondary trochars removed under direct vision. No bleeding was noted the trocar sites. The laparoscope was withdrawn and umbilical trocar removed. The abdomen was allowed to collapse. The fascia of the 12 mm trocar was closed with a [id number] 0 Vicryl suture. The skin was closed with sutures of 4-0 Monocryl and Steri-Strips. The orogastric tube was removed and the patient was extubated. The patient tolerated procedure well and was taken to the postanesthesia care unit in stable condition. - Complications none
--- NOTE | 2019-05-26 12:24 | PCM.DC.GB ---
Discharge Diet: Light diet - advance as tolerated Discharge Activity: May not drive while taking narcotic pain medications. May shower in (days): 1 - 24 hours from surgery okay to keep outer bandages in place during the first hour Lifting Restrictions: No lifting greater than 20 pounds for 3 wks no strenuous exercise for 5 wks Call your doctor if your incision/area has: Continuous Slow Oozing, Sudden Increased Bleeding, Increased Pain/ Swelling, Increased Redness, Foul Smelling Discharge, Swelling at the incision site Call your doctor if you observe: Fever of 101 or Higher Remove Dressing in (days):: 1 - Okay to remove outer bandages in 24 hours from surgery keep Steri-Strips on for 7 to 10 days if they fall off on their own that is fine however if they do not call for 10 days okay to remove Additional Instructions: Okay to take ibuprofen 400-600 mg PO q6hr PRN along with the Percocet. Avoid Tylenol since there is already Tylenol in the Percocet. Take all pain meds with food. Percocet can cause constipation recommend taking daily stool softener (i.e. Colace/docusate) while taking the pain meds. Recommend starting some MiraLAX after discharge with 2-3 doses throughout the day 05/27/2019, as your CT did show stool throughout the colon consistent with constipation and narcotics can also cause further constipation. If not having much results with the MiraLAX recommend taking magnesium citrate following day--- half the bottle--if good results okay to not drink the other half otherwise after waiting 4-6 hours if still no results take the other half the bottle. Allergies/Adverse Reactions: Allergies amlodipine besylate [From Norvasc] Allergy (Verified 11/21/17 10:27) Unknown azithromycin [From Zithromax] Allergy (Verified 11/21/17 10:27) Unknown chlorhexidine Allergy (Verified 05/25/19 23:14) Rash ciprofloxacin [From Cipro] Allergy (Verified 11/21/17 10:27) Unknown ciprofloxacin HCl [From Cipro] Allergy (Verified 11/21/17 10:27) Unknown clarithromycin [From Biaxin] Allergy (Verified 11/21/17 10:27) Unknown Penicillins Allergy (Verified 05/25/19 23:55) Hives Bigmtyp-[id number]-[id number] Reductase Inhibitor Allergy (Verified 11/21/17 10:27) Unknown chlorthalidone Adverse Reaction (Uncoded 05/25/19 23:55) Itching Gentamicin (Gentak) Adverse Reaction (Uncoded 05/26/19 00:01) reddened eyes took for pink eye Medications to take at Discharge Aspirin [Aspirin, Baby] 81 mg PO QHS 05/02/14 Cholecalciferol (VIT D3) [Vitamin D3] 2,000 unit PO DAILY 05/02/14 Clonidine HCl [Catapres] 0.1 mg PO BID 05/02/14 Fluoxetine [Prozac] 40 mg PO DAILY 05/02/14 Gemfibrozil [Lopid] 600 mg PO BIDAC 05/02/14 Losartan Potassium [Cozaar] 100 mg PO DAILY 05/02/14 Multivitamins,Therapeutic [Multivitamin] 1 tablet PO DAILY 05/02/14 Biotin 10,000 mcg PO DAILY 11/13/17 Bupropion HCl [Bupropion Xl] 150 mg PO DAILY 11/13/17 metFORMIN (XR) [Glucophage Xr] 1,000 mg PO DAILY 11/13/17 Spironolactone 25 mg PO DAILY 05/26/19 Vit C/Ascorb Sod/Multivit-Min [Emergen-C 500 mg Chewable Tab] 500 mg PO DAILY 05/26/19 Vitamin B Complex 150 mg PO DAILY 05/26/19 Oxycodone HCl/Acetaminophen [Percocet 5/325] 1 - 2 tab PO Q6H PRN PRN 4 Days #20 tab 05/27/19 Pantoprazole Sodium 40 mg PO DAILY #30 tablet.dr 05/27/19 The following prescriptions were given: Pantoprazole Sodium 40 mg PO DAILY #30 tablet.dr Transmission Status: Received by [facility] Oxycodone HCl/Acetaminophen [Percocet 5/325] 1 - 2 tab PO Q6H PRN PRN 4 Days #20 tab PRN Reason: Pain Transmission Status: Received by [facility] Primary Care Physician: Lei Ibarra DO [Primary Care Provider] - Test Results: Test results from this visit will be discussed in further detail at your follow-up appointment, if applicable. Please Follow Up With: Joaquina Becker MD - After 5:00 PM and on the weekends call [phone] with any concerns When: Call the office for a follow-up appointment in 1 to 2 weeks [phone] Proposed Discharge Date: 05/27/19
[2019-05-26 12:26] LABS: Bedside Glucose 147 mg/dL (70-110)
--- NOTE | 2019-05-26 14:15 | NURSING ---
Family requesting pain medication for patient who states pain is a 15/10. In to assess patient and she is sleeping and falls asleep while asking orientation questions. Alise Moser RN, called to bedside for a second opinion and decision made at this time not to give pain medication d/t patient being unable to open eyes or answer questions.
[2019-05-26] MEDS: hydrALAZINE 20 MG/ML Vial 5 MG IV (15:41)
[2019-05-26] MEDS: 0.9% Saline Lock 10 ML Syringe IV (15:41)
[2019-05-26] MEDS: Docusate Sodium 100 MG Capsule PO (16:08)
[2019-05-26] MEDS: FLUoxetine 20 MG Capsule 40 MG PO (16:08)
[2019-05-26] MEDS: Losartan Potassium 100 MG Tablet PO (16:08)
[2019-05-26] MEDS: cloNIDine HCl 0.1 MG Tablet PO ×2 (16:08→22:02)
[2019-05-26] MEDS: buPROPion (XL) 150 MG TABLET.XL PO (16:11)
[2019-05-26 16:26] LABS: Bedside Glucose 130 mg/dL (70-110)
[2019-05-26] MEDS: Lactated Ringers 1,000 ML 100 ML IV (17:22)
[2019-05-26] MEDS: Polyethylene Glycol 3350 17 GM PACKET PO (18:48)
[2019-05-26] MEDS: Acetaminophen 325 MG Tablet 650 MG PO (22:01)
[2019-05-26 22:15] LABS: Bedside Glucose 194 mg/dL (70-110)
[2019-05-27] VITALS (9 sets, daily range): BP systolic 100–167; BP diastolic 45–68; PULSE 56–70; RESP 16–20; TEMP 36.5–37.6; O2SAT 93–97
[2019-05-27] MEDS: Lactated Ringers 1,000 ML 100 ML IV (01:22)
[2019-05-27 05:37] LABS: Absolute Lymphocyte Count 1.92 X10^3/uL (0.83-4.51); Absolute Neutrophil Count 6.4 X10^3/uL (2.0-7.7); Basophil# 0.05 X10^3/uL; Basophil% 0.5 % (0-1); Eosinophil# 0.21 X10^3/uL; Eosinophils% 2.3 % (0-5); Hematocrit 37.2 % (37-47); Hemoglobin 11.8 g/dL (12.0-15.0); Lymphocyte # 1.92 X10^3/ul (4.0); Lymphocyte % 20.8 % (19-41); Mean Corp Hgb Conc 31.7 g/dL (32-36); Mean Corpuscular Hgb 29.5 pg (27.0-32.0); Monocyte# 0.62 X10^3/uL; Monocyte% 6.7 % (0-10); NRBC Flagged by Analyzer 0 % (0-5); Neutrophil # 6.42 X10^3/uL (2.7-7.7); Neutrophil % 69.5 % (47-70); Platelet Count 273 K/mm3 (150-450); RBC Distribution Width CV 13.2 % (11.6-14.6); RBC Distribution Width SD 45.1 fl (35.1-43.9); White Blood Count 9.2 K/mm3 (4.4-11.0)
[2019-05-27] MEDS: oxyCODONE 5 MG Tablet PO (06:25)
[2019-05-27] MEDS: Acetaminophen 325 MG Tablet 650 MG PO ×2 (06:25→17:42)
[2019-05-27 06:38] LABS: ALB/GLOB Ratio 0.8 RATIO (0.9-2.4); AST(SGOT) 123 U/L (15-37); Alanine Aminotransfer ALT/SGPT 130 U/L (13-56); Albumin, Serum 2.7 g/dL (3.2-5.0); Alkaline Phosphatase 108 U/L (45-117); Anion Gap 6 (5-15); BUN 11 mg/dL (7-18); BUN/Creat Ratio 13.6 RATIO (10-20); Calcium,Total 8.3 mg/dL (8.5-10.1); Chloride 104 mmol/L (98-107); Creatinine, Serum 0.81 mg/dL (0.55-1.02); EST Glomerular Filtration Rate 74 mL/min (>60); Est Glom Filt Rate - Afr Amer 89 mL/min (>60); Estimated Creatinine Clearance 48.19 ml/min; Globulin 3.6 g/dL (2.2-4.2); Glucose 151 mg/dL (74-106); Potassium 3.5 mmol/L (3.5-5.1); Protein, Total 6.3 g/dL (6.4-8.2); Sodium Level 137 mmol/L (136-145)
[2019-05-27] MEDS: Insulin Lispro 100 UNIT/ML INSULN.PEN SC (06:57)
[2019-05-27] MEDS: Docusate Sodium 100 MG Capsule PO (07:57)
--- NOTE | 2019-05-27 08:53 | PN.SURG_ITS ---
Patient Problems: Active and Suspected Problems Acute calculous cholecystitis (Acute) Elevated lipase (Acute) Pancreatitis, gallstone (Acute) Subjective: Patient is doing well tolerating diet did have a small amount of flatus no bowel movement yet. - Physical Exam Vitals/I&O's: Vital Signs Temp Pulse Resp BP Pulse Ox 99.2 F H 70 20 H 106/55 L 96 05/27/19 07:43 05/27/19 07:50 05/27/19 07:43 05/27/19 07:43 05/27/19 07:43 Oxygen Flow Rate (L/min) 2 Oxygen Delivery Method Nasal Cannula Weight: 180 lb 12.465 oz Body Mass Index (BMI) 33.0 Finger Stick Blood Glucose 174 Intake and Output for Last 24 Hours 05/25/19 05/26/19 05/27/19 23:59 23:59 23:59 Intake Total 1170 / 1170 2442.17 / 2692.17 1350 / 1350 Output Total 1700 / 2000 300 / 300 Balance 1170 / 1170 742.17 / 692.17 1050 / 1050 General: Alert, Oriented x3, Cooperative, No apparent distress HEENT: Atraumatic Cardiovascular: Regular rate Abdomen: Soft, Non-Distended, Tender - Near incisions incisions clean dry and intact?dressed, no peritoneal signs Extremities: No clubbing, No cyanosis, No edema Neurological: Cranial nerves II-XII grossly intact Laboratory Results 05/26/19 12:21: POC Glucose 147 H 05/26/19 16:16: POC Glucose 130 H 05/26/19 22:07: POC Glucose 194 H 05/27/19 04:58: WBC 9.2, RBC 4.00 L, Hgb 11.8 L, Hct 37.2, MCV 93.0, MCH 29.5, MCHC 31.7 L, RDW Std Deviation 45.1 H, RDW Coeff of Cora 13.2, Plt Count 273, MPV 10.0, Immature Gran % (Auto) 0.200, Neut % (Auto) 69.5, Lymph % (Auto) 20.8, [place] % (Auto) 6.7, Eos % (Auto) 2.3, Baso % (Auto) 0.5, Absolute Neuts (auto) 6.4, Absolute Lymphs (auto) 1.92, Nucleated RBC % 0 01/22/20 04:58: Sodium 137, Potassium 3.5, Chloride 104, Carbon Dioxide 27.0, Anion Gap 6, BUN 11, Creatinine 0.81, Estim Creat Clear Calc 48.19, Est GFR (MDRD) Af Amer 89, Est GFR (MDRD) Non-Af 74, BUN/Creatinine Ratio 13.6, Glucose 151 H, Calcium 8.3 L, Total Bilirubin 1.20 H, AST 123 H, ALT 130 H, Alkaline Phosphatase 108, Total Protein 6.3 L, Albumin 2.7 L, Globulin 3.6, Albumin/Globulin Ratio 0.8 L Current Medications Acetaminophen (Tylenol) 650 mg PO Q6H PRN PRN PRN Reason: Pain Score 1-1010 Last Admin: 05/27/19 06:25 Dose: 650 mg Documented by: Bupropion HCl (Wellbutrin Xl) 150 mg PO DAILY [facility] Last Admin: 05/26/19 16:11 Dose: 150 mg Documented by: Clonidine (Catapres) 0.1 mg PO BID [facility] Last Admin: 05/26/19 22:02 Dose: 0.1 mg Documented by: Docusate Sodium (Colace) 100 mg PO DAILY [facility] Last Admin: 05/27/19 07:57 Dose: 100 mg Documented by: Fluoxetine HCl (Prozac) 40 mg PO DAILY [facility] Last Admin: 05/26/19 16:08 Dose: 40 mg Documented by: Glucagon () 1 mg IM .X1 PRN PRN Reason: Hypoglycemia Glucagon () 1 mg IM .X1 PRN PRN Reason: Hypoglycemia Hydralazine HCl (Apresoline Iv) 5 mg IV Q4H PRN PRN PRN Reason: SBP > 160 Last Admin: 05/26/19 15:41 Dose: 5 mg Documented by: Pantoprazole Sodium 40 mg/ (Sodium Chloride) 110 mls @ 330 mls/hr IV Q24H [facility] Last Infusion: 05/26/19 22:22 Dose: Infused Documented by: Dextrose (Dextrose 10%-Water) 250 mls @ 999 mls/hr IV .Q16M PRN; Protocol PRN Reason: HYPOGLYCEMIA Dextrose (Dextrose 10%-Water) 250 mls @ 999 mls/hr IV .Q16M PRN; Protocol PRN Reason: HYPOGLYCEMIA Insulin Human Lispro (Humalog Kwikpen (Bkc)) 0 unit SC TIDAC [facility]; Protocol Last Admin: 05/27/19 06:57 Dose: 1 units Documented by: Losartan Potassium (Cozaar) 100 mg PO DAILY [facility] Last Admin: 05/26/19 16:08 Dose: 100 mg Documented by: Morphine Sulfate () 1 - 3 mg IV Q2H PRN PRN PRN Reason: Pain Score 1-1010 Last Admin: 05/26/19 21:59 Dose: 2 mg Documented by: Ondansetron HCl (Zofran) 4 mg IV Q8H PRN PRN PRN Reason: NAUSEA Oxycodone HCl (Oxyir) 5 - 10 mg PO Q4H PRN PRN PRN Reason: Pain Score 1-02/12 Last Admin: 05/27/19 06:25 Dose: 5 mg Documented by: Sodium Chloride () 10 - 40 ml IV UD PRN PRN Reason: SALINE FLUSH Last Admin: 05/26/19 15:41 Dose: 10 ml Documented by: Medical Necessity - Tobacco Use Smoking Status: Never smoker Assessment/Plan All Active Problems Acute calculous cholecystitis (Acute) Elevated lipase (Acute) Pancreatitis, gallstone (Acute) 73-year-old female with cholelithiasis/cholecystitis, pancreatitis likely due to gallstone pancreatitis, postop day 1 status post laparoscopic cholecystectomy 1. Patient tolerating a diet, having some flatus has not had a bowel movement, patient's admission CT did show constipation. Will try Dulcolax suppository as well as a stool softeners and did give patient instructions for at home to take some MiraLAX 2-3 doses today and it does not have good results recommend taking half a bottle magnesium citrate tomorrow. Patient tolerated diet ambulates vital signs remained stable DC home today. Joaquina Becker M.D. Pager: [phone] [facility] [address] [address], [facility], [address] [place] [address] Office: [phone]
[2019-05-27] MEDS: Bisacodyl 10 MG Suppository RECTAL ×2 (09:53→14:06)
[2019-05-27] MEDS: buPROPion (XL) 150 MG TABLET.XL PO (09:56)
[2019-05-27] MEDS: FLUoxetine 20 MG Capsule 40 MG PO (09:56)
[2019-05-27] MEDS: cloNIDine HCl 0.1 MG Tablet PO ×2 (09:56→21:01)
[2019-05-27] MEDS: Losartan Potassium 100 MG Tablet PO (09:57)
--- NOTE | 2019-05-27 10:17 | PCM.PN.HOSP ---
Patient Problems: Active and Suspected Problems Acute calculous cholecystitis (Acute) Elevated lipase (Acute) Pancreatitis, gallstone (Acute) Reason for Visit: cholecystitis Subjective: Feels well. Tolerating PO. Vitals/I&O's: Vital Signs Temp Pulse Resp BP Pulse Ox 37.3 C H 56 L 18 121/61 H 96 05/27/19 07:43 05/27/19 10:05 05/27/19 10:05 05/27/19 10:05 05/27/19 07:43 Oxygen Flow Rate (L/min) 2 Oxygen Delivery Method Nasal Cannula Weight: 82 kg Body Mass Index (BMI) 33.0 Finger Stick Blood Glucose 174 Intake and Output for Last 24 Hours 05/25/19 05/26/19 05/27/19 23:59 23:59 23:59 Intake Total 1170 / 1170 2442.17 / 2692.17 1350 / 1350 Output Total 1700 / 2000 300 / 300 Balance 1170 / 1170 742.17 / 692.17 1050 / 1050 General: Alert, No apparent distress HEENT: Atraumatic, Normocephalic Oral: Moist Mucosa, No Gingival or Mucosal Lesions/ Ulcerations Neck: No Nodes, Trachea Midline Lungs: Clear to auscultation, Normal air movement, No rhonchi, No wheeze Cardiovascular: Regular rate, Regular Rhythm, Normal S1, Normal S2 Abdomen: Bowel Sounds Present, Soft, Non Tender, Non-Distended Extremities: No edema, No Calf Tenderness Skin: No rashes, No breakdown Laboratory Results 05/26/19 12:21: POC Glucose 147 H 05/26/19 16:16: POC Glucose 130 H 05/26/19 22:07: POC Glucose 194 H 05/27/19 04:58: WBC 9.2, RBC 4.00 L, Hgb 11.8 L, Hct 37.2, MCV 93.0, MCH 29.5, MCHC 31.7 L, RDW Std Deviation 45.1 H, RDW Coeff of Cora 13.2, Plt Count 273, MPV 10.0, Immature Gran % (Auto) 0.200, Neut % (Auto) 69.5, Lymph % (Auto) 20.8, [place] % (Auto) 6.7, Eos % (Auto) 2.3, Baso % (Auto) 0.5, Absolute Neuts (auto) 6.4, Absolute Lymphs (auto) 1.92, Nucleated RBC % 0 05/27/19 04:58: Sodium 137, Potassium 3.5, Chloride 104, Carbon Dioxide 27.0, Anion Gap 6, BUN 11, Creatinine 0.81, Estim Creat Clear Calc 48.19, Est GFR (MDRD) Af Amer 89, Est GFR (MDRD) Non-Af 74, BUN/Creatinine Ratio 13.6, Glucose 151 H, Calcium 8.3 L, Total Bilirubin 1.20 H, AST 123 H, ALT 130 H, Alkaline Phosphatase 108, Total Protein 6.3 L, Albumin 2.7 L, Globulin 3.6, Albumin/Globulin Ratio 0.8 L Current Medications Acetaminophen (Tylenol) 650 mg PO Q6H PRN PRN PRN Reason: Pain Score 1-10/10 Last Admin: 05/27/19 06:25 Dose: 650 mg Documented by: Bupropion HCl (Wellbutrin Xl) 150 mg PO DAILY [facility] Last Admin: 05/27/19 09:56 Dose: 150 mg Documented by: Clonidine (Catapres) 0.1 mg PO BID [facility] Last Admin: 05/27/19 09:56 Dose: 0.1 mg Documented by: Docusate Sodium (Colace) 100 mg PO DAILY [facility] Last Admin: 05/27/19 07:57 Dose: 100 mg Documented by: Fluoxetine HCl (Prozac) 40 mg PO DAILY [facility] Last Admin: 05/27/19 09:56 Dose: 40 mg Documented by: Glucagon () 1 mg IM .X1 PRN PRN Reason: Hypoglycemia Glucagon () 1 mg IM .X1 PRN PRN Reason: Hypoglycemia Hydralazine HCl (Apresoline Iv) 5 mg IV Q4H PRN PRN PRN Reason: SBP > 160 Last Admin: 05/26/19 15:41 Dose: 5 mg Documented by: Pantoprazole Sodium 40 mg/ (Sodium Chloride) 110 mls @ 330 mls/hr IV Q24H [facility] Last Infusion: 05/26/19 22:22 Dose: Infused Documented by: Dextrose (Dextrose 10%-Water) 250 mls @ 999 mls/hr IV .Q16M PRN; Protocol PRN Reason: HYPOGLYCEMIA Dextrose (Dextrose 10%-Water) 250 mls @ 999 mls/hr IV .Q16M PRN; Protocol PRN Reason: HYPOGLYCEMIA Insulin Human Lispro (Humalog Kwikpen (Bkc)) 0 unit SC TIDAC [facility]; Protocol Last Admin: 05/27/19 06:57 Dose: 1 units Documented by: Losartan Potassium (Cozaar) 100 mg PO DAILY [facility] Last Admin: 05/27/19 09:57 Dose: 100 mg Documented by: Morphine Sulfate () 1 - 3 mg IV Q2H PRN PRN PRN Reason: Pain Score 1-1010 Last Admin: 05/26/19 21:59 Dose: 2 mg Documented by: Ondansetron HCl (Zofran) 4 mg IV Q8H PRN PRN PRN Reason: NAUSEA Oxycodone HCl (Oxyir) 5 - 10 mg PO Q4H PRN PRN PRN Reason: Pain Score 1-10 Last Admin: 05/27/19 06:25 Dose: 5 mg Documented by: Sodium Chloride () 10 - 40 ml IV UD PRN PRN Reason: SALINE FLUSH Last Admin: 05/26/19 15:41 Dose: 10 ml Documented by: STROKE Vital Signs/Narrative: Vital Signs Temp Pulse Resp BP BP Pulse Ox 05/27/19 10:05 56 L 18 121/61 H 05/27/19 07:50 70 05/27/19 07:43 37.3 C H 56 L 20 H 106/55 L 96 Medical Necessity - Tobacco Use Smoking Status: Never smoker Assessment/Plan All Active Problems Acute calculous cholecystitis (Acute) Elevated lipase (Acute) Pancreatitis, gallstone (Acute) 1. Acute cholecystitis lap yuki 05/26 2. Acute Pancreatitis 2/2 gallstones mild, lipase slightly elevated on admission, now normalized supportive mgmt 3. HTN controlled resume home meds when able 4. DM2 oral meds held add SSI 5. VTE prophylaxis: SCDs Medically stable for discharge Code Visit Inpatient E&M: 00279 Subs Hosp L2
--- NOTE | 2019-05-27 10:35 | CASEMGMT ---
RN CM Face to Face with patient for initial transition planning/care coordination assessment. RN CM introduced self and role at [facility]. Patient lying in bed, alert and oriented. Patient willing to participate in assessment and is able to answer all questions appropriately. Care providers, pharmacy, and demographics verified. Patient wishes to discharge home, denies need for home health at this time. Patient states she has no further needs or concerns at this time. CM to follow for discharge planning needs that may arise. PCP: Clint Specialists: [facility] Preferred Pharmacy: [facility], sent to [facility] Prescription Benefit: yes Living Will/HPOA: yes, Clifford Perez LNOK: , daughter Living Arrangements: Patient lives with in 1 story home with 2 steps to enter the home. Transportation: self/ DME/HHC: Patient has shower chair, raised toilet, cane, walker, grab bars, and cpap at home. Disposition Plan: Patient to discharge home with family support and follow-up plans in place. Ludivina PAUL, RN, CM
[2019-05-27 11:06] LABS: Bedside Glucose 161 mg/dL (70-110)
[2019-05-27 11:11] LABS: Bedside Glucose 147 mg/dL (70-110)
--- NOTE | 2019-05-27 12:37 | NURSING ---
Student documentation reviewed.
[2019-05-27] MEDS: Polyethylene Glycol 3350 17 GM PACKET PO (14:06)
[2019-05-27 16:35] LABS: Bedside Glucose 132 mg/dL (70-110)
[2019-05-27] MEDS: Fleet Enema 1 ML RECTAL (17:43)
[2019-05-27 21:05] LABS: Bedside Glucose 207 mg/dL (70-110)
[2019-05-28 03:00] VITALS: BP 151/68; PULSE 59; RESP 18; TEMP 37; O2SAT 93
[2019-05-28 06:46] LABS: Bedside Glucose 123 mg/dL (70-110)
--- NOTE | 2019-05-28 08:33 | PN_ITS ---
Patient Problems: Active and Suspected Problems Acute calculous cholecystitis (Acute) Elevated lipase (Acute) Pancreatitis, gallstone (Acute) Reason for Visit: cholecystitis Subjective: Feels good. Minimal abdominal pain. +BM Vitals/I&O's: Vital Signs Temp Pulse Resp BP Pulse Ox 37.0 C 59 L 18 151/68 H 93 05/28/19 03:00 05/28/19 03:00 05/28/19 03:00 05/28/19 03:00 05/28/19 03:00 Oxygen Flow Rate (L/min) 2 Oxygen Delivery Method Room Air Weight: 82 kg Body Mass Index (BMI) 33.0 Finger Stick Blood Glucose 174 Intake and Output for Last 24 Hours 05/26/19 05/27/19 05/28/19 23:59 23:59 23:59 Intake Total 2442.17 / 2692.17 2131.67 / 2731.67 840 / 840 Output Total 1700 / 2000 1300 / 1300 Balance 742.17 / 692.17 831.67 / 1431.67 840 / 840 General: Alert, No apparent distress HEENT: Atraumatic, Normocephalic Oral: Moist Mucosa, No Gingival or Mucosal Lesions/ Ulcerations Neck: No Nodes, Trachea Midline Lungs: Clear to auscultation, Normal air movement, No rhonchi, No wheeze Cardiovascular: Regular rate, Regular Rhythm, Normal S1, Normal S2, No murmurs Abdomen: Bowel Sounds Present, Soft, Non Tender, Non-Distended Laboratory Results 05/27/19 06:52: POC Glucose 161 H 05/27/19 11:04: POC Glucose 147 H 05/27/19 16:22: POC Glucose 132 H 05/27/19 20:59: POC Glucose 207 H 05/28/19 06:39: POC Glucose 123 H Current Medications Acetaminophen (Tylenol) 650 mg PO Q6H PRN PRN PRN Reason: Pain Score 1-10/10 Last Admin: 05/27/19 17:42 Dose: 650 mg Documented by: Bupropion HCl (Wellbutrin Xl) 150 mg PO DAILY [facility] Last Admin: 05/27/19 09:56 Dose: 150 mg Documented by: Clonidine (Catapres) 0.1 mg PO BID [facility] Last Admin: 05/27/19 21:01 Dose: 0.1 mg Documented by: Docusate Sodium (Colace) 100 mg PO DAILY [facility] Last Admin: 05/27/19 07:57 Dose: 100 mg Documented by: Fluoxetine HCl (Prozac) 40 mg PO DAILY [facility] Last Admin: 05/27/19 09:56 Dose: 40 mg Documented by: Glucagon () 1 mg IM .X1 PRN PRN Reason: Hypoglycemia Glucagon () 1 mg IM .X1 PRN PRN Reason: Hypoglycemia Hydralazine HCl (Apresoline Iv) 5 mg IV Q4H PRN PRN PRN Reason: SBP > 160 Last Admin: 05/26/19 15:41 Dose: 5 mg Documented by: Pantoprazole Sodium 40 mg/ (Sodium Chloride) 110 mls @ 330 mls/hr IV Q24H [facility] Last Infusion: 05/27/19 21:26 Dose: Infused Documented by: Dextrose (Dextrose 10%-Water) 250 mls @ 999 mls/hr IV .Q16M PRN; Protocol PRN Reason: HYPOGLYCEMIA Dextrose (Dextrose 10%-Water) 250 mls @ 999 mls/hr IV .Q16M PRN; Protocol PRN Reason: HYPOGLYCEMIA Insulin Human Lispro (Humalog Kwikpen (Bkc)) 0 unit SC TIDAC [facility]; Protocol Last Admin: 05/28/19 06:44 Dose: Not Given Documented by: Losartan Potassium (Cozaar) 100 mg PO DAILY [facility] Last Admin: 05/27/19 09:57 Dose: 100 mg Documented by: Morphine Sulfate () 1 - 3 mg IV Q2H PRN PRN PRN Reason: Pain Score 1-10/10 Last Admin: 05/26/19 21:59 Dose: 2 mg Documented by: Ondansetron HCl (Zofran) 4 mg IV Q8H PRN PRN PRN Reason: NAUSEA Oxycodone HCl (Oxyir) 5 - 10 mg PO Q4H PRN PRN PRN Reason: Pain Score 1-10/10 Last Admin: 05/27/19 06:25 Dose: 5 mg Documented by: Sodium Chloride () 10 - 40 ml IV UD PRN PRN Reason: SALINE FLUSH Last Admin: 05/26/19 15:41 Dose: 10 ml Documented by: Medical Necessity - Tobacco Use Smoking Status: Never smoker Assessment/Plan All Active Problems Acute calculous cholecystitis (Acute) Elevated lipase (Acute) Pancreatitis, gallstone (Acute) 1. Acute cholecystitis * lap yuki 05/26 2. Acute Pancreatitis * 2/2 gallstones * mild, lipase slightly elevated on admission, now normalized * supportive mgmt 3. HTN * controlled * resume home meds when able 4. DM2 * oral meds held * add SSI 5. VTE prophylaxis: SCDs Medically stable for discharge KYRIE Berumen. Code Visit Inpatient E&M: 12900 Subs Hosp L2
--- NOTE | 2019-05-28 08:35 | PN.SURG_ITS ---
Patient Problems: Active and Suspected Problems Acute calculous cholecystitis (Acute) Elevated lipase (Acute) Pancreatitis, gallstone (Acute) Subjective: Patient was able to have a bowel movement did have temperature of 99.6 and did not have bowel motility at night and patient was also having some belching - Physical Exam Vitals/I&O's: Vital Signs Temp Pulse Resp BP Pulse Ox 98.6 F 59 L 18 151/68 H 93 05/28/19 03:00 05/28/19 03:00 05/28/19 03:00 05/28/19 03:00 05/28/19 03:00 Oxygen Flow Rate (L/min) 2 Oxygen Delivery Method Room Air Weight: 180 lb 12.465 oz Body Mass Index (BMI) 33.0 Finger Stick Blood Glucose 174 Intake and Output for Last 24 Hours 05/26/19 05/27/19 05/28/19 23:59 23:59 23:59 Intake Total 2442.17 / 2692.17 2131.67 / 2731.67 840 / 840 Output Total 1700 / 2000 1300 / 1300 Balance 742.17 / 692.17 831.67 / 1431.67 840 / 840 General: Alert, Oriented x3, Cooperative, No apparent distress HEENT: Atraumatic Lungs: Normal air movement Cardiovascular: Regular rate Abdomen: Soft, Non-Distended, Tender - Incisions clean dry and intact with op sites no peritoneal signs Laboratory Results 05/27/19 06:52: POC Glucose 161 H 05/27/19 11:04: POC Glucose 147 H 05/27/19 16:22: POC Glucose 132 H 05/27/19 20:59: POC Glucose 207 H 05/28/19 06:39: POC Glucose 123 H Current Medications Acetaminophen (Tylenol) 650 mg PO Q6H PRN PRN PRN Reason: Pain Score 1-10/10 Last Admin: 05/27/19 17:42 Dose: 650 mg Documented by: Bupropion HCl (Wellbutrin Xl) 150 mg PO DAILY [facility] Last Admin: 05/27/19 09:56 Dose: 150 mg Documented by: Clonidine (Catapres) 0.1 mg PO BID [facility] Last Admin: 05/27/19 21:01 Dose: 0.1 mg Documented by: Docusate Sodium (Colace) 100 mg PO DAILY [facility] Last Admin: 05/27/19 07:57 Dose: 100 mg Documented by: Fluoxetine HCl (Prozac) 40 mg PO DAILY [facility] Last Admin: 05/27/19 09:56 Dose: 40 mg Documented by: Glucagon () 1 mg IM .X1 PRN PRN Reason: Hypoglycemia Glucagon () 1 mg IM .X1 PRN PRN Reason: Hypoglycemia Hydralazine HCl (Apresoline Iv) 5 mg IV Q4H PRN PRN PRN Reason: SBP > 160 Last Admin: 05/26/19 15:41 Dose: 5 mg Documented by: Pantoprazole Sodium 40 mg/ (Sodium Chloride) 110 mls @ 330 mls/hr IV Q24H [facility] Last Infusion: 05/27/19 21:26 Dose: Infused Documented by: Dextrose (Dextrose 10%-Water) 250 mls @ 999 mls/hr IV .Q16M PRN; Protocol PRN Reason: HYPOGLYCEMIA Dextrose (Dextrose 10%-Water) 250 mls @ 999 mls/hr IV .Q16M PRN; Protocol PRN Reason: HYPOGLYCEMIA Insulin Human Lispro (Humalog Kwikpen (Bkc)) 0 unit SC TIDAC [facility]; Protocol Last Admin: 05/28/19 06:44 Dose: Not Given Documented by: Losartan Potassium (Cozaar) 100 mg PO DAILY [facility] Last Admin: 05/27/19 09:57 Dose: 100 mg Documented by: Morphine Sulfate () 1 - 3 mg IV Q2H PRN PRN PRN Reason: Pain Score 1-10/10 Last Admin: 05/26/19 21:59 Dose: 2 mg Documented by: Ondansetron HCl (Zofran) 4 mg IV Q8H PRN PRN PRN Reason: NAUSEA Oxycodone HCl (Oxyir) 5 - 10 mg PO Q4H PRN PRN PRN Reason: Pain Score 1-10/10 Last Admin: 05/27/19 06:25 Dose: 5 mg Documented by: Sodium Chloride () 10 - 40 ml IV UD PRN PRN Reason: SALINE FLUSH Last Admin: 05/26/19 15:41 Dose: 10 ml Documented by: Medical Necessity - Tobacco Use Smoking Status: Never smoker Assessment/Plan All Active Problems Acute calculous cholecystitis (Acute) Elevated lipase (Acute) Pancreatitis, gallstone (Acute) 73-year-old female with cholelithiasis/cholecystitis, pancreatitis likely due to gallstone pancreatitis, postop day 2 status post laparoscopic cholecystectomy 1. Patient tolerating a diet, she did have a bowel movement, patient's admission CT did show constipation. We will have patient take half a bottle magnesium citrate tomorrow and then later the other half. Joaquina eBcker M.D. Pager: [phone] [facility] [address] [place] [address], [facility], [address] [place] [address] Office: [phone]
[2019-05-28] MEDS: Losartan Potassium 100 MG Tablet PO (08:59)
[2019-05-28] MEDS: Docusate Sodium 100 MG Capsule PO (08:59)
[2019-05-28] MEDS: cloNIDine HCl 0.1 MG Tablet PO (08:59)
[2019-05-28 09:00] VITALS: BP 146/55; PULSE 63; RESP 18; TEMP 36.9; O2SAT 93
[2019-05-28] MEDS: buPROPion (XL) 150 MG TABLET.XL PO (09:00)
[2019-05-28] MEDS: FLUoxetine 20 MG Capsule 40 MG PO (09:00)
--- NOTE | 2019-05-28 13:00 | PCM.DC.SUM ---
Discharge Date and Diagnosis Date of Admission: 05/25/19 Date of Discharge: 05/28/19 - Primary Discharge Diagnosis Acute cholecystitis Gallstone pancreatitis Constipation - Secondary Discharge Diagnosis Chronic Problems GERD (gastroesophageal reflux disease) (Chronic) Depression (Chronic) Type 2 diabetes mellitus (Chronic) Hypertension (Chronic) Hyperlipidemia (Chronic) Hip joint replacement status (Chronic) Hospital Course and Treatment Imaging Results: Clinical Impression(s) from Imaging Studies Gallbladder Ultrasound 05/25/19 18:38 IMPRESSION: 1. Multiple small stones in the neck of the gallbladder. 2. The borders of the pancreas appear somewhat lobular/irregular. No obvious mass is seen on the current study. CT or MRI with contrast with pancreatic protocol is recommended. Electronically Signed: Jorge Mayen MD at 19:41 EST , Service support , Chest X-Ray 05/25/19 18:39 IMPRESSION: No acute process Electronically Signed: Jorge Mayen MD at 18:51 EST , Service support , Abdomen/Pelvis CT 05/25/19 20:57 IMPRESSION: 1. Abnormally thickened gallbladder wall, gallstones, and subtle pericholecystic stranding are all compatible with acute cholecystitis. These findings were not detected on the recent right upper quadrant ultrasound due to poor penetration, body habitus, and bowel gas. 2. Fatty liver 3. No demonstrated acute or significant process of the pancreas. Lobularity seen on the recent ultrasound does not represent a pathologic process. 4. Sigmoid diverticulosis. Electronically Signed: Jorge Mayen MD at 22:25 EST , Service support , Cholangiogram 05/26/19 10:57 IMPRESSION: Unremarkable intraoperative cholangiogram. Electronically Signed: Colin Fletcher, at 12:57 EST , Service support , Operations: cholecystecomy - Laparoscopic cholecystectomy with cholangiograms on 05/26/[address] Becker Procedures: None Summary of Care Provided: The patient is a 73 year old F presented to the ER due to right upper quadrant epigastric pain. On work-up patient was found to have elevated lipase likely gallstone pancreatitis and cholecystitis with ultrasound and CT showing a thickened wall, small moderate pericholecystic fluid, cholelithiasis, normal common bile duct, normal white blood cell count with slight left shift. Patient with a laparoscopic cholecystectomy with cholangiograms on 05/26/2019, cholangiograms did show good flow of bile into the small bowel with no filling defects in the common bile duct. After the surgery patient was quite somnolent from anesthesia; however postop day 1 patient was doing well tolerating a diet ambulating however she is still not had much flatus or any bowel movement and patient's admission CAT scan did show constipation with stool throughout the colon. Patient was given couple suppositories as well as MiraLAX and enema. Patient did have bowel function with this. On postop day 2 patient was able be discharged home and she was tolerating diet pain was controlled and vital signs stable. Patient was instructed to take half a bottle of magnesium citrate the day of discharge and then 4 to 6 hours later to take the other half of the bottle. - Physical Exam Vitals/I&O's: Vital Signs Temp Pulse Resp BP Pulse Ox 98.5 F 63 18 146/55 H 93 05/28/19 09:00 05/28/19 09:00 05/28/19 09:00 05/28/19 09:00 05/28/19 09:00 Oxygen Flow Rate (L/min) 2 Oxygen Delivery Method Room Air Weight: 180 lb 12.465 oz Body Mass Index (BMI) 33.0 Finger Stick Blood Glucose 174 Intake and Output for Last 24 Hours 05/26/19 05/27/19 05/28/19 23:59 23:59 23:59 Intake Total 2442.17 / 2692.17 2131.67 / 2731.67 840 / 840 Output Total 1700 / 2000 1300 / 1300 Balance 742.17 / 692.17 831.67 / 1431.67 840 / 840 General: Alert, Oriented x3, Cooperative, No apparent distress HEENT: Atraumatic Lungs: Normal air movement Cardiovascular: Regular rate Abdomen: Soft, Tender - Near incision clean dry and intact, no peritoneal signs Extremities: No clubbing, No cyanosis, No edema Neurological: Cranial nerves II-XII grossly intact Psych/Mental Status: Normal Affect Laboratory Results 05/27/19 16:22: POC Glucose 132 H 05/27/19 20:59: POC Glucose 207 H 05/28/19 06:39: POC Glucose 123 H Discharge Diet: Light diet - advance as tolerated Discharge Activity: May not drive while taking narcotic pain medications. May shower in (days): 1 - 24 hours from surgery okay to keep outer bandages in place during the first hour Call your doctor if your incision/area has: Continuous Slow Oozing, Sudden Increased Bleeding, Increased Pain/ Swelling, Increased Redness, Foul Smelling Discharge, Swelling at the incision site Call your doctor if you observe: Fever of 101 or Higher Remove Dressing in (days):: 1 - Okay to remove outer bandages in 24 hours from surgery keep Steri-Strips on for 7 to 10 days if they fall off on their own that is fine however if they do not call for 10 days okay to remove Home Medications: Medications to take at Discharge Aspirin [Aspirin, Baby] 81 mg PO QHS 05/02/14 Cholecalciferol (VIT D3) [Vitamin D3] 2,000 unit PO DAILY 05/02/14 Clonidine HCl [Catapres] 0.1 mg PO BID 05/02/14 Fluoxetine [Prozac] 40 mg PO DAILY 05/02/14 Gemfibrozil [Lopid] 600 mg PO BIDAC 05/02/14 Losartan Potassium [Cozaar] 100 mg PO DAILY 05/02/14 Multivitamins,Therapeutic [Multivitamin] 1 tablet PO DAILY 05/02/14 Biotin 10,000 mcg PO DAILY 11/13/17 Bupropion HCl [Bupropion Xl] 150 mg PO DAILY 11/13/17 metFORMIN (XR) [Glucophage Xr] 1,000 mg PO DAILY 11/13/17 Spironolactone 25 mg PO DAILY 05/26/19 Vit C/Ascorb Sod/Multivit-Min [Emergen-C 500 mg Chewable Tab] 500 mg PO DAILY 05/26/19 Vitamin B Complex 150 mg PO DAILY 05/26/19 Oxycodone HCl/Acetaminophen [Percocet 5/325] 1 - 2 tab PO Q6H PRN PRN 4 Days #20 tab 05/27/19 Pantoprazole Sodium 40 mg PO DAILY #30 tablet. 05/27/19 Following Prescrptions Were Given to Patient: Pantoprazole Sodium 40 mg PO DAILY #30 tablet. Transmission Status: Received by [facility] Oxycodone HCl/Acetaminophen [Percocet 5/325] 1 - 2 tab PO Q6H PRN PRN 4 Days #20 tab PRN Reason: Pain Transmission Status: Received by [facility] Primary Care Physician: Lei Ibarra DO [Primary Care Provider] - Please Follow Up With: Joaquina Becker MD - After 5:00 PM and on the weekends call [phone] with any concerns When: Call the office for a follow-up appointment in 1 to 2 weeks [phone] Additional Instructions: Okay to take ibuprofen 400-600 mg PO q6hr PRN along with the Percocet. Avoid Tylenol since there is already Tylenol in the Percocet. Take all pain meds with food. Percocet can cause constipation recommend taking daily stool softener (i.e. Colace/docusate) while taking the pain meds. Recommend starting some MiraLAX after discharge with 2-3 doses throughout the day 05/27/2019, as your CT did show stool throughout the colon consistent with constipation and narcotics can also cause further constipation. If not having much results with the MiraLAX recommend taking magnesium citrate following day--- half the bottle--if good results okay to not drink the other half otherwise after waiting 4-6 hours if still no results take the other half the bottle. Disposition: Home Patient Condition:: Good Medical Necessity - Tobacco Use Smoking Status: Never smoker Meaningful Use Info Meaningful Use Diagnoses (Choose all that apply): None applicable
== END 2019-05-28 09:51 | disposition home or self-care (01) | DRG 417 ==
LOC: ED 20:28 → MS3 22:42
PROVIDERS: Anesthesiology; Admitting Provider Surgery; Emergency Provider Emergency Medicine; PCP Student in an Organized Health Care Education/Training Program
PROC: 0FT44ZZ Resection of Gallbladder, Percutaneous Endoscopic Approach (ICD-10-PCS; CPT 47610; principal; 2019-05-26 10:10)
DX: K80.00 Calculus of gallbladder with acute cholecystitis without obstruction (principal); K85.10 Biliary acute pancreatitis without necrosis or infection; K59.00 Constipation, unspecified; K21.9 Gastro-esophageal reflux disease without esophagitis; F32.9 Major depressive disorder, single episode, unspecified; I10 Essential (primary) hypertension; E78.5 Hyperlipidemia, unspecified; Z96.649 Presence of unspecified artificial hip joint; K57.30 Diverticulosis of large intestine without perforation or abscess without bleeding; K76.0 Fatty (change of) liver, not elsewhere classified; K66.0 Peritoneal adhesions (postprocedural) (postinfection); E11.9 Type 2 diabetes mellitus without complications; Z90.710 Acquired absence of both cervix and uterus
CPT/HCPCS: 36415; 71045; 74178; 74300; 76000; 76705; 80048; 80053; 80076; 81001; 82962; 83036; 83690; 85025; 88304; 93005; 99285; J2185; J7030; J7120; Q9967; A4216; J2405

== ENCOUNTER → 2019-09-22 10:50 | Outpatient (CLI) | payer MEDICARE, SELFPAY ==
[2019-05-26 07:49] VITALS: BMI 33.0
[2019-09-22 12:49] LABS: Absolute Neutrophil Count 3.5 X10^3/uL (2.0-7.7); Basophil# 0.06 X10^3/uL; Eosinophil# 0.13 X10^3/uL; Eosinophils% 2.3 % (0-5); Hematocrit 38.9 % (37-47); Hemoglobin 12.6 g/dL (12.0-15.0); Lymphocyte % 27.8 % (19-41); Mean Corp Hgb Conc 32.4 g/dL (32-36); Mean Corpuscular Hgb 29.9 pg (27.0-32.0); Mean Corpuscular Volume 92.4 fL (81-99); Mean Platelet Vol. 10.4 fl (6.2-12.0); Monocyte# 0.43 X10^3/uL; Monocyte% 7.5 % (0-10); NRBC Flagged by Analyzer 0 % (0-5); Neutrophil # 3.51 X10^3/uL (2.7-7.7); Neutrophil % 61.1 % (47-70); Platelet Count 326 K/mm3 (150-450); RBC Distribution Width CV 12.9 % (11.6-14.6); RBC Distribution Width SD 43.5 fl (35.1-43.9); Red Blood Count 4.21 M/mm3 (4.2-5.4); White Blood Count 5.8 K/mm3 (4.4-11.0)
[2019-09-22 12:57] LABS: ALB/GLOB Ratio 0.9 RATIO (0.9-2.4); AST(SGOT) 19 U/L (15-37); Alanine Aminotransfer ALT/SGPT 23 U/L (13-56); Albumin, Serum 3.6 g/dL (3.2-5.0); Alkaline Phosphatase 106 U/L (45-117); Anion Gap 9 (5-15); BUN 20 mg/dL (7-18); BUN/Creat Ratio 25.3 RATIO (10-20); Calcium,Total 9.3 mg/dL (8.5-10.1); Chloride 103 mmol/L (98-107); Creatinine, Serum 0.79 mg/dL (0.55-1.02); EST Glomerular Filtration Rate 75 mL/min (>60); Est Glom Filt Rate - Afr Amer 91 mL/min (>60); Ferritin 159 ng/mL (8-252); Globulin 4.1 g/dL (2.2-4.2); Glucose 164 mg/dL (74-106); Potassium 4.1 mmol/L (3.5-5.1); Protein, Total 7.7 g/dL (6.4-8.2); Sodium Level 137 mmol/L (136-145); Thyroid Stim Hormone (TSH) 0.96 uIU/mL (0.358-3.74)
[2019-09-23 08:46] LABS: Thyroid Peroxidase AB < 9 IU/mL (0-34)
[2019-09-25 13:35] LABS: Anti-Nuclear Antibody Test Negative (.)
== END ==
PROVIDERS: PCP Student in an Organized Health Care Education/Training Program; Referring Provider Physician Assistant; Visit Provider Physician Assistant
DX: L82.1 Other seborrheic keratosis (principal); L57.0 Actinic keratosis; D48.5 Neoplasm of uncertain behavior of skin; L64.8 Other androgenic alopecia
CPT/HCPCS: 36415; 80053; 82728; 84443; 85025; 86038; 86376

== ENCOUNTER 2020-03-18 13:37 | Emergency (ER) | payer MEDICARE, SELFPAY ==
[2019-05-26 07:49] VITALS: BMI 33.0
[2020-03-18 13:39] VITALS: BP 181/73; PULSE 53; RESP 18; TEMP 36.2; O2SAT 100; BMI 31.8
--- NOTE | 2020-03-18 14:10 | ED.VIS.GEN ---
History of Present Illness Chief Complaint: Hypertension Informant: Patient Narrative: 74-year-old female with known history of essential hypertension. She tells me she currently takes losartan 100 mg in the morning, clonidine 0.1 mg twice a day, and spironolactone once a day. She tells me that since Saturday she has had systolic readings of 180. She feels a headache, blurry vision, and short of breath. She describes the headache as pulsating. She states that this is very common for her when her blood pressure gets elevated. She tells me that it took a long time to find a regimen of blood pressure medications that worked well for her and she has not had any changes in recent months. She denies any swelling. She has been eating and drinking normally. No urinary symptoms. No chest pain or cough. - Past Medical History (1) GERD (gastroesophageal reflux disease) Status: Chronic (2) Depression Status: Chronic (3) Type 2 diabetes mellitus Status: Chronic (4) Hypertension Status: Chronic (5) Hyperlipidemia Status: Chronic Past Medical History - Allergies and Home Meds Allergies/Adverse Reactions: Allergies amlodipine besylate [From Norvasc] Allergy (Verified 03/18/20 13:39) Unknown azithromycin [From Zithromax] Allergy (Verified 03/18/20 13:39) Unknown chlorhexidine Allergy (Verified 03/18/20 13:39) Rash ciprofloxacin [From Cipro] Allergy (Verified 03/18/20 13:39) Unknown ciprofloxacin HCl [From Cipro] Allergy (Verified 03/18/20 13:39) Unknown clarithromycin [From Biaxin] Allergy (Verified 03/18/20 13:39) Unknown Penicillins Allergy (Verified 03/18/20 13:39) Hives Krjbizf-Hvl-Qpt Reductase Inhibitor Allergy (Verified 03/18/20 13:39) Unknown chlorthalidone Adverse Reaction (Uncoded 03/18/20 13:39) Itching Gentamicin (Gentak) Adverse Reaction (Uncoded 03/18/20 13:39) reddened eyes took for pink eye Primary Care Physician: Lei Ibarra DO [Primary Care Provider] - Past Medical History: - - Hypertension Surgical History: hysterectomy - vaginal, total hip arthroplasty - Bilateral, - - Left wrist, right foot Smoking Status: Former smoker Drugs: None - Family History Maternal Family History: Reports: Heart Disease - Mother had cardiomegaly, - - Her mother had cerebral hemorrhage. Paternal Family History: Reports: Heart Disease Review of Systems General: Denies: Chills, Fever, Sweats Eyes: Denies: Visual changes - bilaterally, Diplopia ENT: Denies: Rhinorrhea, Sore throat Cardiovascular: Denies: Chest pain, Palpitations Respiratory: Reports: Dyspnea. Denies: Cough, Dyspnea on exertion Gastrointestinal: Denies: Abdominal pain, Nausea, Vomiting, Diarrhea, Melena, Hematochezia Genitourinary: Denies: Dysuria, Hematuria, Frequency Musculoskeletal: Denies: Back pain, Extremity Pain Skin: Denies: Rash, Wounds Neurological: Reports: Headache. Denies: Weakness, Numbness Physical Exam Vital Signs/Narrative: Vital Signs Temp Pulse Resp BP Pulse Ox 03/18/20 13:39 97.1 F L 53 L 18 181/73 H 100 Inital Vital Signs reviewed: Yes General: Well nourished, Well developed, No Acute Distress Head: Normocephalic, Atraumatic Eyes: Perrl, EOMI ENT: Moist mucous membranes, No rhinorrhea Neck: Supple, Nontender Cardiovascular: Regular rate, Regular rhythm, No murmurs Respiratory: No distress, CTA bilaterally, Chest nontender Abdomen: Soft, Nontender, Nondistended, Normal bowel sounds Back: Nontender, Normal Inspection Extremities: Nontender, No edema Skin: Normal color, No rash Neurological: Alert, Oriented x3, Cranial nerves II-XII grossly intact, Normal Strength, Normal Sensation Psychological: Normal affect, Normal Mood Diagnostic/Tx/Re-eval - EKG Initial EKG Interpretation: Sinus Bradycardia - EKG demonstrated a sinus bradycardia at a rate of 53 without concerning features of ACS or ectopy - Medical Decision Making Chest x-ray head CT showed no acute findings. EKG shows no concerning features. Basic blood work is negative. Patient received a dose of hydralazine we felt pretty consistent readings around 160. I spoke with Dr. Ibarra. Patient has follow-up arranged on Saturday. As discussed with the patient, there must be some back story as to why she has ended up on the medications that she is. I am hesitant to prescribe new medications without knowing that information is is Dr. Ibarra. In the interim we are going to have her take her clonidine up to every 6 hours. And she will follow-up on Saturday. Patient is comfortable with this plan. ED Disposition - Plan for ED Patient: Disposition: Home or Assisted Living Diagnosis: Accelerated hypertension Instructions: ED High Blood Pressure Established Out of Control Prescriptions: Clonidine HCl 0.1 mg PO Q6H PRN #20 tab PRN Reason: Hypertension Prescription Printed Referrals: Lei Ibarra DO [Primary Care Provider] - (as scheduled on Saturday) Additional Instructions: You may take your clonidine up to 4 times per day. I have prescribed some extra clonidine in case you run out before your appointment.
--- NOTE | 2020-03-18 14:12 | RAD_ITS ---
STUDY: X-RAY CHEST REASON FOR EXAM: Female, 74 years old. DYSPNEA, SOB, INCREASE BP TECHNIQUE: Single AP portable view of the chest. COMPARISON: Comparison is made with prior study dated 05/25/2019. FINDINGS: EKG electrodes are seen. Stable elevation of the right hemidiaphragm. The lungs are clear. There is no demonstrated pleural abnormality. Normal size heart. Normal mediastinum and areli. Normal visualized pulmonary arteries. There is atherosclerotic calcification of the aortic arch with tortuosity. Normal visualized thoracic spine. Normal visualized ribs, clavicles, and shoulders. There is no demonstrated abnormality of the visualized soft tissue structures of the upper abdomen. RAD/Chest 1 View (Portable) IMPRESSION: Elevation of the right hemidiaphragm. No acute abnormality is seen. Electronically Signed: Colin Fletcher, at 15:09 EST , Service support ,
--- NOTE | 2020-03-18 14:12 | EKG12_ITS ---
Test Reason : HYPERTENSION Blood Pressure : / mmHG Vent. Rate : 053 BPM Atrial Rate : 053 BPM P-R Int : 142 ms QRS Dur : 078 ms QT Int : 432 ms P-R-T Axes : 026 009 004 degrees QTc Int : 405 ms Sinus bradycardia Otherwise normal ECG Confirmed by HERMES SMITH, LESLEY ([id number]), news videotape editor MARIYA DORSEY ([id number]) on 03/22/2020 8:39:23 AM Referred By: Confirmed By:LESLEY MIRZA MD
--- NOTE | 2020-03-18 14:12 | CT_ITS ---
STUDY: CT BRAIN WITHOUT CONTRAST REASON FOR EXAM: Female, 74 years old. HEADACHE RADIATION DOSAGE (If Supplied By Facility): CTDIvol = ( 44.99 ) mGy, DLP = ( 998.67 ) mGycm TECHNIQUE: Transaxial CT imaging of the brain was performed without administration of intravenous contrast material. Individualized dose optimization techniques were used for this CT. COMPARISON: Comparison is made with prior study dated 05/03/2014. FINDINGS: Normal soft tissue structures. Normal calvarium. There is mild cerebral atrophy with widening of the extra-axial spaces and ventricular dilatation. Normal white matter tracts of the cerebral hemispheres. Normal basal ganglia and thalami. Normal brainstem. Normal cerebellum. There is no intracranial hemorrhage. There are no findings of an acute ischemic infarction. Normal visualized paranasal sinuses. CT/Brain/Head without Contrast IMPRESSION: Chronic involutional changes of the brain. Electronically Signed: Colin Fletcher, at 15:03 EST , Service support ,
[2020-03-18 14:55] LABS: Absolute Lymphocyte Count 1.84 X10^3/uL (0.83-4.51); Basophil# 0.06 X10^3/uL; Basophil% 0.9 % (0-1); Eosinophil# 0.12 X10^3/uL; Eosinophils% 1.8 % (0-5); Hematocrit 35.5 % (37-47); Hemoglobin 11.7 g/dL (12.0-15.0); Lymphocyte # 1.84 X10^3/ul (4.0); Lymphocyte % 27.7 % (19-41); Mean Corpuscular Hgb 30.2 pg (27.0-32.0); Mean Corpuscular Volume 91.7 fL (81-99); Mean Platelet Vol. 10.3 fl (6.2-12.0); Monocyte# 0.57 X10^3/uL; Monocyte% 8.6 % (0-10); NRBC Flagged by Analyzer 0 % (0-5); Neutrophil # 4.04 X10^3/uL (2.7-7.7); Neutrophil % 60.7 % (47-70); Platelet Count 305 K/mm3 (150-450); RBC Distribution Width SD 43.4 fl (35.1-43.9); Red Blood Count 3.87 M/mm3 (4.2-5.4); White Blood Count 6.7 K/mm3 (4.4-11.0)
[2020-03-18 15:00] LABS: Anion Gap 5 (5-15); BUN 25 mg/dL (7-18); BUN/Creat Ratio 34.2 RATIO (10-20); Calcium,Total 8.9 mg/dL (8.5-10.1); Chloride 109 mmol/L (98-107); Creatinine, Serum 0.73 mg/dL (0.55-1.02); EST Glomerular Filtration Rate 82 mL/min (>60); Est Glom Filt Rate - Afr Amer 100 mL/min (>60); Estimated Creatinine Clearance 38.44 ml/min; Glucose 128 mg/dL (74-106); Potassium 4.1 mmol/L (3.5-5.1); Sodium Level 141 mmol/L (136-145)
[2020-03-18] MEDS: Ketorolac 15 MG/ML Vial IV (15:00)
[2020-03-18 15:20] LABS: Mucous, Urine 0 SEEN /hpf (<or=2+); Red Blood Cells-Urine 0 SEEN /hpf (0-5)
[2020-03-18 15:22] LABS: Color, Urine Yellow (Yellow); Glucose, Dipstick Normal (Normal); Ketone-Dipstick Negative (Negative); Leukocyte Esterase-Dipstick 500 /ul (Negative); Nitrite-Dipstick Positive (Negative); Occult Blood-Urine 10 /ul (Negative); Protein-Dipstick Negative (Negative); Specific Gravity, Urine 1.015 (1.002-1.030); Urine Bilirubin Dipstick Negative (Negative); Urine Clarity Sl. Cloudy (Clear); Urine Urobilinogen Normal (Normal)
[2020-03-18 15:37] VITALS: BP 159/73; PULSE 51; RESP 16
[2020-03-18 15:41] LABS: Bacteria 3+ /hpf (None Seen)
[2020-03-18 15:42] LABS: Squamous Epithelial Cells - UA 0-5 SEEN /hpf (5-10); Transitional Epithelial - Ur 0-5 SEEN /hpf (0-5); White Blood Cells 5-10 SEEN /hpf (0-5)
[2020-03-18] MEDS: hydrALAZINE 20 MG/ML Vial 10 MG IV (15:55)
[2020-03-18 16:23] VITALS: BP 133/55; PULSE 56; RESP 14
--- NOTE | 2020-03-18 17:33 | EKG12_ITS ---
Test Reason : SOB Blood Pressure : / mmHG Vent. Rate : 055 BPM Atrial Rate : 055 BPM P-R Int : 140 ms QRS Dur : 080 ms QT Int : 460 ms P-R-T Axes : 043 023 015 degrees QTc Int : 440 ms Sinus bradycardia Nonspecific ST abnormality Abnormal ECG Confirmed by HERMES SMITH, LESLEY ([id number]), research editor MARIYA DORSEY ([id number]) on 03/22/2020 8:44:32 AM Referred By: Confirmed By:LESLEY MIRZA MD
== END 2020-03-18 16:24 | disposition home or self-care (01) ==
PROVIDERS: Emergency Provider Emergency Medicine; PCP Student in an Organized Health Care Education/Training Program
DX: I10 Essential (primary) hypertension (principal); K21.9 Gastro-esophageal reflux disease without esophagitis; E11.9 Type 2 diabetes mellitus without complications; E78.5 Hyperlipidemia, unspecified; F32.9 Major depressive disorder, single episode, unspecified; Z79.899 Other long term (current) drug therapy; Z82.49 Family history of ischemic heart disease and other diseases of the circulatory system; Z88.0 Allergy status to penicillin; Z88.1 Allergy status to other antibiotic agents; Z88.8 Allergy status to other drugs, medicaments and biological substances; Z90.710 Acquired absence of both cervix and uterus
CPT/HCPCS: 70450; 71045; 80048; 81001; 84484; 85025; 93005; 96374; 96375; 99285; J7030; A4216; J2405

== ENCOUNTER 2020-03-18 17:20 | Emergency (ER) | payer MEDICARE, SELFPAY ==
[2020-03-18 13:39] VITALS: BMI 31.8
[2020-03-18 17:20] VITALS: BP 180/75
[2020-03-18 17:21] VITALS: PULSE 55; RESP 28; TEMP 36.6; O2SAT 100; BMI 33.5
[2020-03-18] MEDS: DiphenhydrAMINE 25 MG Capsule PO (17:47)
[2020-03-18 18:44] VITALS: BP 181/69; PULSE 55; RESP 20; O2SAT 100
[2020-03-18 19:07] VITALS: BP 174/86; PULSE 55; RESP 20; O2SAT 99
[2020-03-18] MEDS: Morphine 4 MG/ML Syringe IV (19:08)
[2020-03-18] MEDS: Ondansetron 4 MG/2 ML Vial IV (19:08)
[2020-03-18 19:52] VITALS: BP 181/70; PULSE 55; RESP 18
--- NOTE | 2020-03-18 20:48 | ED.VIS.GEN ---
History of Present Illness Chief Complaint: Shortness of Breath Past Medical History - Allergies and Home Meds Allergies/Adverse Reactions: Allergies amlodipine besylate [From Norvasc] Allergy (Verified 03/18/20 13:39) Unknown azithromycin [From Zithromax] Allergy (Verified 03/18/20 13:39) Unknown chlorhexidine Allergy (Verified 03/18/20 13:39) Rash ciprofloxacin [From Cipro] Allergy (Verified 03/18/20 13:39) Unknown ciprofloxacin HCl [From Cipro] Allergy (Verified 03/18/20 13:39) Unknown clarithromycin [From Biaxin] Allergy (Verified 03/18/20 13:39) Unknown Penicillins Allergy (Verified 03/18/20 13:39) Hives Cxzbcfc-Czs-Mpx Reductase Inhibitor Allergy (Verified 03/18/20 13:39) Unknown chlorthalidone Adverse Reaction (Uncoded 03/18/20 13:39) Itching Gentamicin (Gentak) Adverse Reaction (Uncoded 03/18/20 13:39) reddened eyes took for pink eye Primary Care Physician: Lei Ibarra DO [Primary Care Provider] - Surgical History: hysterectomy - vaginal, total hip arthroplasty - Bilateral, - - Left wrist, right foot Smoking Status: Never smoker - Family History Maternal Family History: Reports: Heart Disease - Mother had cardiomegaly, - - Her mother had cerebral hemorrhage. Paternal Family History: Reports: Heart Disease Physical Exam Vital Signs/Narrative: Vital Signs Temp Pulse Resp BP Pulse Ox 03/18/20 19:52 55 L 18 181/70 H 03/18/20 19:07 55 L 20 H 174/86 H 99 03/18/20 18:44 55 L 20 H 181/69 H 100 03/18/20 17:21 97.8 F 55 L 28 H 100 03/18/20 17:20 180/75 H ED Disposition - Plan for ED Patient: Disposition: Home or Assisted Living Diagnosis: Medication side effect Instructions: ED Drug React Adverse Other Referrals: Lei Ibarra DO [Primary Care Provider] - Keep [facility] appointment
[2020-03-18 21:06] VITALS: BP 166/67; PULSE 54; RESP 16; O2SAT 93
== END 2020-03-18 21:11 | disposition home or self-care (01) ==
PROVIDERS: Emergency Provider Emergency Medicine; PCP Student in an Organized Health Care Education/Training Program
DX: T50.905A Adverse effect of unspecified drugs, medicaments and biological substances, initial encounter (principal); F19.90 Other psychoactive substance use, unspecified, uncomplicated; Y92.9 Unspecified place or not applicable; Z82.49 Family history of ischemic heart disease and other diseases of the circulatory system; Z88.0 Allergy status to penicillin; Z88.1 Allergy status to other antibiotic agents; Z88.8 Allergy status to other drugs, medicaments and biological substances; Z90.710 Acquired absence of both cervix and uterus
CPT/HCPCS: 99285; J7030; J2405

== ENCOUNTER 2021-05-24 13:13 | Outpatient (CLI) | payer MEDICARE, SELFPAY ==
--- NOTE | 2021-05-24 13:21 | CT_ITS ---
STUDY: CT SOFT TISSUE NECK WITH CONTRAST REASON FOR EXAM: Female, 75 years old. NECK MASS RADIATION DOSAGE (If Supplied By Facility): CTDIvol = ( 14.53 ) mGy, DLP = ( 721.85 ) mGycm TECHNIQUE: The patient was scanned in a multi-detector CT scanner. High resolution transaxial imaging was performed following intravenous administration of ISOVUE 370 75ml. Sagittal and coronal images were reconstructed. Individualized dose optimization techniques were used for this CT. COMPARISON: None. FINDINGS: Normal bilateral parotid glands. Normal bilateral cellular equipment repairer spaces. Normal bilateral parapharyngeal spaces. There is mild enlargement of the right submandibular gland and increased density with minimal surrounding inflammatory changes, suggestive of sialadenitis. There are no demonstrated intraglandular or extra glandular ductal dilatation. There are no demonstrated stones. Normal visualized nasopharynx. Normal retropharyngeal space. Normal perivertebral space. Normal visualized bilateral faucial tonsils. The visualized tongue, tongue base and oropharynx are normal. The visualized cervical lymph nodes (levels I-) are within normal size limits, and maintain normal morphology. There is no demonstrated solid or cystic mass lesion. There is no abnormal contrast enhancement. Normal epiglottis, bilateral vallecula and hypopharynx. The pre-epiglottic and paraglottic adipose spaces are normal. Normal subglottic trachea. Normal bilateral lobes of the thyroid gland. CT/Soft Tissue Neck W/WO Contrast IMPRESSION: Right submandibular gland enlargement with minimal surrounding inflammatory changes, suggestive of sialoadenitis. No radiopaque stone. Electronically Signed: Evelyn Candelario MD at 15:13 EST Tel , Service support ,
[2021-05-24 13:41] LABS: CREATININE FINGERSTICK 1.1 mg/dL (0.55-1.02)
== END 2021-05-24 23:59 | disposition short-term general hospital (02) ==
LOC: CT 13:16
PROVIDERS: PCP Student in an Organized Health Care Education/Training Program; Referring Provider Otolaryngology Otolaryngology/Facial Plastic Surgery; Visit Provider Otolaryngology Otolaryngology/Facial Plastic Surgery
DX: R22.1 Localized swelling, mass and lump, neck (principal)
CPT/HCPCS: 70492; Q9967; A4216

== ENCOUNTER 2021-10-13 15:30 | Emergency (ER) | payer MEDICARE, SELFPAY ==
[2021-10-13 15:31] VITALS: BP 142/65; PULSE 59; RESP 16; TEMP 36.9; O2SAT 97; BMI 28.9
--- NOTE | 2021-10-13 15:43 | CT_ITS ---
EXAM: CT CERVICAL SPINE WITHOUT INTRAVENOUS CONTRAST CLINICAL INDICATION: fall TECHNIQUE: Helically acquired images were obtained of the cervical spine without intravenous contrast. 2D reformatted images were reviewed. This CT exam was performed using one or more of the following dose reduction techniques: automated exposure control, adjustment of the mA and/or kV according to patient size, and/or use of iterative reconstruction technique. This report was created using [employer] report generation technology. COMPARISON: None. FINDINGS: VERTEBRAE: Unremarkable. No fracture. No traumatic subluxation. No discrete lytic or blastic abnormality. Normal alignment. Normal craniocervical junction and cervicothoracic junction. DISCS/SPINAL CANAL/NEURAL FORAMINA: There is disc space narrowing at C6-7. There is left bony neural foraminal narrowing at C3-4. SOFT TISSUES: Unremarkable. No prevertebral soft tissue swelling. LYMPH NODES: Unremarkable. No cervical adenopathy. LUNG APICES: Unremarkable as visualized. Clear. CT/Spine Cervical without Contras IMPRESSION: 1. No acute osseous abnormality. 2. Degenerative change with disc space narrowing and bony neural foraminal narrowing. Electronically Signed: Johny Edouard MD at 16:10 EDT ,
--- NOTE | 2021-10-13 15:43 | CT_ITS ---
EXAM: CT HEAD WITHOUT INTRAVENOUS CONTRAST CLINICAL INDICATION: fall TECHNIQUE: Multiple axial images were obtained of the head without intravenous contrast. This CT exam was performed using one or more of the following dose reduction techniques: automated exposure control, adjustment of the mA and/or kV according to patient size, and/or use of iterative reconstruction technique. This report was created using [employer] report generation technology. COMPARISON: 03/18/2020 FINDINGS: BRAIN AND EXTRA-AXIAL SPACES: There is stable mild enlargement of ventricular system. And cortical sulci. No intra- or extra-axial hemorrhage. No evidence of acute infarct. No intracranial mass or mass effect. There is preservation of the wood/white matter interface. Posterior fossa structures are unremarkable. Basal cisterns are patent. BONES/JOINTS: Unremarkable. No discrete lytic or blastic abnormalities. SINUSES: Unremarkable as visualized. Clear. MASTOID AIR CELLS: Unremarkable. Clear. ORBITS: Visualized globes, extraocular muscles, optic nerves and retrobulbar fat appear unremarkable. CT/Brain/Head without Contrast IMPRESSION: 1. No acute intracranial abnormality. There is no change from the reference exam. 2. Stable underlying senescent change. Electronically Signed: Johny Edouard MD at 16:09 EDT ,
--- NOTE | 2021-10-13 15:44 | EDS_ITS ---
HPI HPI - Fall History of Present Illness Chief Complaint: Fall Informant: patient Occured/Mechanism Occurred: Yesterday Narrative Narrative: Patient presents after suffering a fall yesterday. She was taking her son's dog out on a leash when the dog pulled and she lost her balance falling backwards. She did strike her head on grass. No loss of consciousness. She states she has pain whenever she tries to shake her head side to side. No nausea or vision change. She also complains of pain to the posterior right knee. She is currently ambulating with a cane when she does not really require this. Family states the first couple steps are slow but once she gets up and moving she does quite well with this. She takes baby aspirin daily but no other blood thinners. [facility] Medical History Acute calculous cholecystitis Depression Elevated lipase GERD (gastroesophageal reflux disease) Hyperlipidemia Hypertension Pancreatitis, gallstone Type 2 diabetes mellitus Home Medications aspirin 81 mg PO QHS 05/02/14 [History Last Taken 05/24/19 22:00] cholecalciferol (vitamin D3) 2,000 unit PO DAILY 05/02/14 [History Last Taken 05/25/19 08:00] clonidine HCl 0.1 mg PO BID 05/02/14 [History Last Taken 11/21/17 0.1 MG] fluoxetine 40 mg PO DAILY 05/02/14 [History Last Taken 05/25/19 08:00] gemfibrozil 600 mg PO BIDAC 05/02/14 [History Last Taken 05/25/19 08:00] losartan 100 mg PO DAILY 05/02/14 [History Last Taken 05/25/19 08:00] multivitamin with folic acid 1 tab PO DAILY 05/02/14 [History Last Taken 05/25/19 08:00] biotin 10,000 mcg PO DAILY 11/13/17 [History Last Taken 05/25/19 08:00] bupropion HCl 150 mg PO DAILY 11/13/17 [History Last Taken 05/25/19 08:00] metformin 1,000 mg PO DAILY 11/13/17 [History Last Taken 05/25/19 08:00] spironolactone 25 mg PO DAILY 05/26/19 [History Last Taken 05/25/19 08:00] vitamin B complex 150 mg PO DAILY 05/26/19 [History Last Taken 05/25/19 08:00] vitamin L-acgzvcuspzmm-pzyedjf 500 mg PO DAILY 05/26/19 [History Last Taken 05/25/19 08:00] pantoprazole 40 mg PO DAILY #30 tablet. 05/27/19 [Rx Last Taken Unknown] clonidine HCl 0.1 mg PO Q6H PRN #20 tab 03/18/20 [Rx Last Taken Unknown] Allergy/AdvReac Type Severity Reaction Status Date / Time amlodipine besylate Allergy Unknown Verified 10/13/21 15:37 [From Norvasc] azithromycin [From Zithromax] Allergy Unknown Verified 10/13/21 15:37 chlorhexidine Allergy Rash Verified 10/13/21 15:37 ciprofloxacin [From Cipro] Allergy Unknown Verified 10/13/21 15:37 ciprofloxacin HCl Allergy Unknown Verified 10/13/21 15:37 [From Cipro] clarithromycin [From Biaxin] Allergy Unknown Verified 10/13/21 15:37 Penicillins Allergy Hives Verified 10/13/21 15:37 Inylgii-BFT-DyP Reductase Allergy Unknown Verified 10/13/21 15:37 Inhibitor [Uagnqnj-Oqu-Ciq Reductase Inhibitor] chlorthalidone AdvReac Itching Uncoded 10/13/21 15:37 Gentamicin (Gentak) AdvReac reddened Uncoded 10/13/21 15:37 eyes Surgical History Hip joint replacement status History of laparoscopic cholecystectomy (~05/26/19) Social History Smoking Status: Never smoker ROS ROS ED Constitutional Constitutional ED: Denies chills or fever(s) Eyes Eyes: Denies change in vision ENT ENT ED: Denies sore throat Cardiovascular Cardiovascular: Denies chest pain Respiratory/Chest Respiratory/Chest: Denies cough or dyspnea Gastrointestinal Gastrointestinal: Denies abdominal pain, diarrhea, nausea or vomiting Genitourinary Genitourinary ED: Denies dysuria Musculoskeletal Musculoskeletal: Reports arthralgias; Denies back pain Integumentary Denies rash Neurologic Neurologic: Reports headache(s); Denies paresthesias or weakness Allergic/Immunologic Allergic/Immunologic ED: Denies urticaria EXAM Physical Exam Const Vital Signs: 10/13/21 15:31 10/13/21 15:34 Temperature 98.4 F Temperature Source Oral Pulse Rate 59 L Respiratory Rate 16 Respiratory Effort Normal Respiratory Depth Normal Respiratory Pattern Normal Blood Pressure 142/65 H Blood Pressure Mean 90 Pulse Ox 97 Oxygen Delivery Method Room Air Room Air Positive well nourished and well developed General Appearance ED: well developed HEENT Reports normocephalic atraumatic Eyes PERRL and EOMs intact bilaterally Neck full ROM Neck Narrative: No C-spine tenderness. Resp normal respiratory effort and clear to auscultation bilaterally Cardio regular rate and regular rhythm GI non-tender Palpation: soft Extremity normal to inspection Extremity Narrative: Mild tenderness to the posterior right knee. Ligaments tight on testing. No significant edema. Neuro oriented x3 and moves all extremities Neuro Narrative: No focal neurologic deficits. Sensorium / Orientation: alert Psych mental status grossly normal Skin Rashes: no rashes MDM MDM MDM Narrative Medical decision making narrative: Patient sent for CT scan of the head and C- spine. Right knee x-rays obtained. Radiography Diagnostic Testing: Clinical Impression(s) from Imaging Studies Brain CT 10/13/21 15:43 IMPRESSION: 1. No acute intracranial abnormality. There is no change from the reference exam. 2. Stable underlying senescent change. Electronically Signed: Johny Edouard MD at 16:09 EDT , Cervical Spine CT 10/13/21 15:43 IMPRESSION: 1. No acute osseous abnormality. 2. Degenerative change with disc space narrowing and bony neural foraminal narrowing. Electronically Signed: Johny Edouard MD at 16:10 EDT , Knee X-Ray 10/13/21 16:00 IMPRESSION: No acute osseous abnormality. There are degenerative changes with joint space narrowing and osteophyte formation. Electronically Signed: Johny Edouard MD at 16:24 EDT , Treatment and Re-Evaluation Narrative: Right knee x-ray per my interpretation reveals arthritic changes with no acute fracture. Radiology interpretation is also reviewed. CT scan of the head and C-spine showed no acute findings. Patient is reassured with this. She will be given concussion instructions. She is to follow-up with her PCP if not improving in the next 1 to 2 weeks. Discharge Plan Triage Chief Complaint: Fall ED Provider: Lena Esparza Dx/Rx/DC Orders Clinical Impression: Fall, Concussion, Sprain of right knee Instructions: ED Concussion, ED Knee Sprain Prescriptions: No Action clonidine HCl 0.1 MG tablet 0.1 mg PO BID RF: 0 gemfibrozil 600 MG tablet 600 mg PO BIDAC RF: 0 aspirin 81 MG tablet,chewable 81 mg PO QHS RF: 0 losartan 100 MG tablet 100 mg PO DAILY RF: 0 fluoxetine 20 MG capsule 40 mg PO DAILY RF: 0 cholecalciferol (vitamin D3) 1,000 UNIT tablet 2,000 unit PO DAILY RF: 0 multivitamin with folic acid 1 TABLET tablet 1 tab PO DAILY RF: 0 biotin 10,000 MCG capsule 10,000 mcg PO DAILY RF: 0 metformin 500 MG tablet 1,000 mg PO DAILY RF: 0 bupropion HCl 150 MG tablet extended release 24 hr 150 mg PO DAILY RF: 0 vitamin B complex 1 EACH capsule 150 mg PO DAILY RF: 0 vitamin H-zxxukmneodlz-gdwhjzf 500 MG tablet,chewable 500 mg PO DAILY RF: 0 spironolactone 25 MG tablet 25 mg PO DAILY RF: 0 pantoprazole 40 MG tablet,delayed release (DR/EC) 40 mg PO DAILY Qty: 30 RF: 0 clonidine HCl 0.1 MG tablet 0.1 mg PO Q6H PRN (Reason: Hypertension) Qty: 20 RF: 0 Primary Care Provider: Lei Ibarra Referrals: Lei Ibarra DO [Primary Care Provider] - 1-2 Weeks Disposition Disposition: Home, Self Care
--- NOTE | 2021-10-13 16:00 | RAD_ITS ---
EXAM: XR RIGHT KNEE COMPLETE, 4 OR MORE VIEWS CLINICAL INDICATION: fall TECHNIQUE: Four or more views of the right knee. This report was created using [email or web address] report generation technology. COMPARISON: None. FINDINGS: BONES/JOINTS: There is narrowing of the medial knee joint space. There is also narrowing of the patellofemoral joint space. There are small osteophytes present. No acute fracture. No subluxation. Normal alignment. No sclerotic or destructive changes observed. SOFT TISSUES: Unremarkable. No soft tissue swelling or gas. No radiopaque foreign body. RAD/Knee 4 or More Views IMPRESSION: No acute osseous abnormality. There are degenerative changes with joint space narrowing and osteophyte formation. Electronically Signed: Johny Edouard MD at 16:24 EDT ,
== END 2021-10-13 16:54 | disposition home or self-care (01) ==
PROVIDERS: Emergency Provider Emergency Medicine; PCP Student in an Organized Health Care Education/Training Program; Visit Provider Emergency Medicine
DX: S06.0X0A Concussion without loss of consciousness, initial encounter (principal); E11.9 Type 2 diabetes mellitus without complications; S83.91XA Sprain of unspecified site of right knee, initial encounter; E78.5 Hyperlipidemia, unspecified; I10 Essential (primary) hypertension; K21.9 Gastro-esophageal reflux disease without esophagitis; W01.198A Fall on same level from slipping, tripping and stumbling with subsequent striking against other object, initial encounter; Y93.K1 Activity, walking an animal
CPT/HCPCS: 70450; 72125; 73564; 99282

== ENCOUNTER 2022-10-17 21:37 | Emergency (ER) | payer MEDICARE, SELFPAY ==
[2022-10-17 21:38] VITALS: BP 186/60; PULSE 57; RESP 18; TEMP 36.6; O2SAT 99
[2022-10-17 22:08] VITALS: BMI 29.3
--- NOTE | 2022-10-17 22:14 | CT_ITS ---
INDICATION: head injury EXAMINATION: CT BRAIN - CT Head or Brain W/O Contrast Injection TECHNIQUE: Multiple axial images were obtained of the head with sagittal and coronal reconstructed images. Individualized dose optimization techniques were used for this CT. IV contrast dosage and agent: None. COMPARISON: 10/13/2021 CT. FINDINGS: BRAIN PARENCHYMA: No evidence of an acute infarct or intracranial hemorrhage. No evidence of a mass. CSF SPACES: Moderate frontal lobe atrophy. CALVARIUM, SKULL BASE, PARANASAL SINUSES AND MASTOID AIR CELLS: No fracture. Postsurgical changes of the right frontal bone. Mastoid air cells are clear. Visualized paranasal sinuses are unremarkable. ORBITS: The globes, extraocular muscles, optic nerves and retrobulbar fat are unremarkable. CT/Brain/Head without Contrast IMPRESSION: No acute fracture or acute intracranial abnormality. Electronically Signed: Sid Stevens DO at 22:49 EDT ,
--- NOTE | 2022-10-17 22:14 | RAD_ITS ---
INDICATION: pain EXAMINATION/TECHNIQUE: X-RAY - LEFT XR Knee 3 Views COMPARISON: None. FINDINGS: SOFT TISSUES: Prepatellar soft tissue swelling. Vascular calcifications. BONES/JOINTS: No fracture or dislocation. Moderate degenerative changes of the medial compartment. Mild degenerative changes of the patellofemoral joint. Small suprapatellar effusion. No erosive changes. RAD/Knee 3 Views IMPRESSION: No fracture or dislocation. Electronically Signed: Sid Stevens DO at 23:12 EDT ,
--- NOTE | 2022-10-17 22:14 | RAD_ITS ---
INDICATION: pain EXAMINATION/TECHNIQUE: X-RAY - RIGHT XR Shoulder Min 2 Views COMPARISON: 01/19/2013. FINDINGS: SOFT TISSUES: Unremarkable. BONES/JOINTS: No fracture or dislocation. Moderate degenerative changes. High riding humerus which may represent rotator cuff pathology. No erosive changes. RAD/Shoulder min 2 Views IMPRESSION: No fracture or dislocation. Electronically Signed: Sid Stevens DO at 23:14 EDT ,
--- NOTE | 2022-10-17 22:14 | RAD_ITS ---
INDICATION: pain EXAMINATION/TECHNIQUE: X-RAY - RIGHT XR Wrist Min 3 Views COMPARISON: None. FINDINGS: SOFT TISSUES: Unremarkable. BONES/JOINTS: No fracture or dislocation. Severe degenerative changes of the first carpometacarpal joint. No erosive changes. RAD/Wrist min 3 Views IMPRESSION: No fracture or dislocation. Electronically Signed: Sid Stevens DO at 23:17 EDT ,
[2022-10-17] MEDS: HYDROcodone Bitartrate/Apap 5/325 Tablet PO (22:20)
[2022-10-17] MEDS: diazePAM 5 MG Tablet 2.5 MG PO (22:21)
--- NOTE | 2022-10-17 22:34 | RAD_ITS ---
INDICATION: pain EXAMINATION/TECHNIQUE: X-RAY - RIGHT XR Elbow Min 3 Views COMPARISON: None. FINDINGS: SOFT TISSUES: Displaced fat pads consistent with an elbow effusion. BONES/JOINTS: Questionable nondisplaced radial head fracture. No dislocation. Severe degenerative changes. No erosive changes. RAD/Elbow min 3 Views IMPRESSION: 1. Questionable nondisplaced radial head fracture. 2. Elbow effusion. 3. Severe degenerative changes. Electronically Signed: Sid Stevens DO at 23:10 EDT ,
--- NOTE | 2022-10-17 23:32 | EDS_ITS ---
HPI History of Present Illness Chief Complaint: Fall Informant: patient and family Narrative Narrative: Patient is a 76-year-old female with past medical history of hypertension hyperlipidemia and diabetes. She states that a few years ago she developed a cranial hematoma after a head injury that need to surgically drain. She states she is not on blood thinners and denies any history of bleeding disorder. She reports around 4 PM this afternoon she was walking from her yard to her driveway when she tripped and fell landing on her right arm left knee and striking her forehead. She states there was no loss of consciousness and she was able to get up quickly following the trauma. She states with her previous history of head injury with brain bleed she was concern for that once again and is also noticed pain in her right arm with difficult with movement secondary to the pain and therefore comes in for evaluation. [facility] Medical History Acute calculous cholecystitis Depression Elevated lipase GERD (gastroesophageal reflux disease) Hyperlipidemia Hypertension Pancreatitis, gallstone Type 2 diabetes mellitus Home Medications aspirin 81 mg chewable tablet 81 mg PO QHS Heart 05/02/14 [History Last Taken 05/24/19 22:00] cholecalciferol (vitamin D3) 25 mcg (1,000 unit) tablet 2,000 unit PO DAILY supplement 05/02/14 [History Last Taken 05/25/19 08:00] clonidine HCl 0.1 mg tablet 0.1 mg PO BID bp 05/02/14 [History Last Taken 11/21/17 0.1 MG] fluoxetine 20 mg capsule 40 mg PO DAILY depression 05/02/14 [History Last Taken 05/25/19 08:00] gemfibrozil 600 mg tablet 600 mg PO BIDAC cholesterol 05/02/14 [History Last Taken 05/25/19 08:00] losartan 100 mg tablet 100 mg PO DAILY bp 05/02/14 [History Last Taken 05/25/19 08:00] multivitamin with folic acid 400 mcg tablet 1 tab PO DAILY supplement 05/02/14 [History Last Taken 05/25/19 08:00] biotin 10,000 mcg capsule 10,000 mcg PO DAILY supplement 11/13/17 [History Last Taken 05/25/19 08:00] bupropion HCl 150 mg 24 hr tablet, extended release 150 mg PO DAILY depression 11/13/17 [History Last Taken 05/25/19 08:00] metformin 500 mg tablet,extended release 24 hr 1,000 mg PO DAILY DM 11/13/17 [History Last Taken 05/25/19 08:00] spironolactone 25 mg tablet 25 mg PO DAILY BP 05/26/19 [History Last Taken 05/25/19 08:00] vitamin B complex 150 mg PO DAILY supplement 05/26/19 [History Last Taken 05/25/19 08:00] vitamin C 500 mg-multivitamin with minerals chewable tablet 500 mg PO DAILY supplement 05/26/19 [History Last Taken 05/25/19 08:00] pantoprazole 40 mg tablet,delayed release 40 mg PO DAILY ##30 05/27/19 [Rx Last Taken Unknown] clonidine HCl 0.1 mg tablet 0.1 mg PO Q6H PRN Hypertension #20 tabs 03/18/20 [Rx Last Taken Unknown] diazepam 5 mg tablet (Valium) 2.5 mg PO TID PRN Muscle pain/spasm 5 days #10 tabs 10/17/22 [Rx Last Taken Unknown] hydrocodone-acetaminophen 5-325mg 5mg-325mg 1 tab PO Q6H PRN PRN Pain 3 days #12 TABLETS 10/17/22 [Rx Last Taken Unknown] Allergy/AdvReac Type Severity Reaction Status Date / Time amlodipine besylate Allergy Unknown Verified 10/17/22 21:40 [From Norvasc] azithromycin [From Zithromax] Allergy Unknown Verified 10/17/22 22:12 chlorhexidine Allergy Rash Verified 10/17/22 22:12 ciprofloxacin [From Cipro] Allergy Unknown Verified 10/17/22 22:12 ciprofloxacin HCl Allergy Unknown Verified 10/17/22 22:12 [From Cipro] clarithromycin [From Biaxin] Allergy Unknown Verified 10/17/22 22:12 clindamycin Allergy Angioedema Verified 10/17/22 22:12 ketorolac [From Toradol] Allergy Anaphylaxis Verified 10/17/22 22:12 Penicillins Allergy Hives Verified 10/17/22 22:12 Fhwdjtb-MQN-DlC Reductase Allergy Unknown Verified 10/17/22 22:12 Inhibitor [Hqtprya-Jsp-Kyl Reductase Inhibitor] chlorthalidone AdvReac Itching Verified 10/17/22 22:12 gentamicin AdvReac Other Verified 10/17/22 21:40 Surgical History Hip joint replacement status History of laparoscopic cholecystectomy (~05/26/19) Social History Smoking Status: Never smoker ROS ROS ED Constitutional Constitutional ED: Denies chills or fever(s) Eyes Eyes: Denies blurry vision or change in vision ENT ENT ED: Denies sore throat Cardiovascular Cardiovascular: Denies chest pain Respiratory/Chest Respiratory/Chest: Denies cough or dyspnea Gastrointestinal Gastrointestinal: Denies abdominal pain, diarrhea, nausea or vomiting Genitourinary Genitourinary ED: Denies dysuria Musculoskeletal Musculoskeletal: Reports other Details: Positive right shoulder right elbow and right wrist pain ; Denies back pain or neck pain Integumentary Reports Abrasions Neurologic Neurologic: Denies headache(s) or paresthesias Hematologic/Lymphatic Hematologic/Lymphatic: Denies easy bleeding or easy bruising EXAM Physical Exam Const Vital Signs: 10/17/22 21:38 10/17/22 22:13 Temperature 97.8 F Temperature Source Temporal Pulse Rate 57 L Respiratory Rate 18 Respiratory Effort Normal Non-Labored Respiratory Depth Normal Respiratory Pattern Normal Blood Pressure 186/60 H Blood Pressure Mean 102 Pulse Ox 99 Oxygen Delivery Method Room Air Room Air Positive well nourished and well developed General Appearance ED: well developed HEENT HEENT Narrative: Patient has mild soft tissue swelling with a superficial abrasion over top of the right eyebrow consistent with report of fall. Otherwise no signs of depressed or basilar skull fracture No septal hematoma Eyes PERRL and EOMs intact bilaterally Eyes Narrative: No hyphema noted Neck supple Neck Narrative: No bony deformity or step-off of the cervical spine no midline pain with palpation Chest Wall palpation of chest normal Resp normal respiratory effort and clear to auscultation bilaterally Cardio regular rate and regular rhythm GI normal to inspection, nondistended, normoactive bowel sounds, non-tender, non- distended and no masses Auscultation: normoactive bowel sounds Palpation: soft Back/Spine Back/Spine Narrative: No bony deformity or step-off of the thoracic or lumbar spine no midline pain with palpation Extremity Extremity Narrative: Pelvis is stable there is no shortening or external rotation of either lower extremity Right upper extremity is neurovascularly intact; AIN/PIN are intact and normal. Patient has decreased active and passive range of motion secondary to pain. Negative sulcus sign. No obvious bony deformity or joint effusion. Patient does have increased pain at the elbow with flexion and extension as well as pronation and supination. There is a superficial hematoma over top of the patella of the left knee. Otherwise the patellar tendon is intact and knee ligaments are stable. Neuro oriented x3 and CN's II-XII intact bilaterally Sensorium / Orientation: alert Psych mental status grossly normal Skin Skin Narrative: Multiple abrasions/hematoma as documented above to the head and left knee. MDM MDM MDM Narrative Medical decision making narrative: Patient presented to the ER after a mechanical fall so therefore there is no need for cardiac or syncope work-up. She is not on a blood thinner nor does she have a history of bleeding disorder but does report a past medical history of a traumatic brain bleed that required surgery and therefore a CT of the head was obtained to rule this out. As she had no midline neck pain and can move her neck in all directions I felt no need for cervical spine CT. differential diagnosis is for skull fracture versus subdural epidural hematoma versus right shoulder dislocation versus elbow dislocation/fracture or left patellar fracture. Multiple imaging studies were obtained and show an effusion/fat pad of the right elbow consistent with an occult fracture. Therefore at this time patient placed in a sling for stabilization but as she is closed and neurovascular intact there is no need for emergent orthopedic consultation. Patient replaced on pain medication and is otherwise safe for discharge with outpatient orthopedic follow-up History & Record Review Discussion w/independent historian: Patient and Family Radiography Diagnostic Testing: Clinical Impression(s) from Imaging Studies Brain CT 10/17/22 22:14 IMPRESSION: No acute fracture or acute intracranial abnormality. Electronically Signed: Sid Stevens DO at 22:49 EDT , Knee X-Ray 10/17/22 22:14 IMPRESSION: No fracture or dislocation. Electronically Signed: Sid Stevens DO at 23:12 EDT , Shoulder X-Ray 10/17/22 22:14 IMPRESSION: No fracture or dislocation. Electronically Signed: Sid Stevens DO at 23:14 EDT , Wrist X-Ray 10/17/22 22:14 IMPRESSION: No fracture or dislocation. Electronically Signed: Sid Stevens DO at 23:17 EDT , Elbow X-Ray 10/17/22 22:34 IMPRESSION: 1. Questionable nondisplaced radial head fracture. 2. Elbow effusion. 3. Severe degenerative changes. Electronically Signed: Sid Stevens DO at 23:10 EDT , X-ray of the right shoulder as interpreted by the emergency medicine physician reveals no acute fracture or dislocation X-ray of the left knee as interpreted by the emergency medicine physician reveals soft tissue swelling without acute fracture or dislocation X-ray of the right wrist as interpreted by the emergency medicine physician reveals no acute fracture or dislocation X-ray of the right elbow as interpreted by the emergency medicine physician reveals a posterior fat pad sign consistent with an occult fracture of the radial head. Discharge Plan Triage Chief Complaint: Fall ED Provider: Patrick Nelson Dx/Rx/DC Orders Clinical Impression: Closed fracture of radial head, Closed head injury, Contusion of multiple sites, Hypertension, Type 2 diabetes mellitus Instructions: ED Elbow Fracture, ED Head Injury (Adult) Prescriptions: New hydrocodone-acetaminophen 5-325 mg tablet 1 tab PO Q6H PRN PRN (Reason: Pain) 3 Days Qty: 12 0RF diazepam [Valium] 5 mg tablet 2.5 mg PO TID PRN (Reason: Muscle pain/spasm) 5 Days Qty: 10 0RF No Action clonidine HCl 0.1 MG tablet 0.1 mg PO BID gemfibrozil 600 MG tablet 600 mg PO BIDAC aspirin 81 MG tablet,chewable 81 mg PO QHS losartan 100 MG tablet 100 mg PO DAILY fluoxetine 20 MG capsule 40 mg PO DAILY cholecalciferol (vitamin D3) 1,000 UNIT tablet 2,000 unit PO DAILY multivitamin with folic acid 1 TABLET tablet 1 tab PO DAILY biotin 10,000 MCG capsule 10,000 mcg PO DAILY metformin 500 MG tablet 1,000 mg PO DAILY Label Comments: bupropion HCl 150 MG tablet extended release 24 hr 150 mg PO DAILY vitamin B complex 1 EACH capsule 150 mg PO DAILY vitamin M-wqlfjourrmzb-lavbtaw 500 MG tablet,chewable 500 mg PO DAILY spironolactone 25 MG tablet 25 mg PO DAILY Label Comments: TAKE 1 TABLET BY MOUTH ONCE DAILY FOR 30 DAYS pantoprazole 40 MG tablet,delayed release (DR/EC) 40 mg PO DAILY Qty: 30 0RF clonidine HCl 0.1 MG tablet 0.1 mg PO Q6H PRN (Reason: Hypertension) Qty: 20 0RF Primary Care Provider: Lei Ibarra Referrals: Lei Ibarra DO [Primary Care Provider] - Mik Rodriguez DO [Med Staff - Active Staff] - Activity Restrictions/Additional Instructions: Please wear your sling for stabilization of your radial head fracture and perform range of motion exercises at least 3 times a day. Follow-up with your orthopedic surgeon to discuss further evaluation or treatment options and return to the ER should you have any further concerns Disposition Disposition: Home, Self Care Discharge Date/Time: 10/17/22 23:54
== END 2022-10-17 23:54 | disposition home or self-care (01) ==
PROVIDERS: Emergency Provider Emergency Medicine; PCP Student in an Organized Health Care Education/Training Program; Visit Provider Emergency Medicine
DX: S52.121A Displaced fracture of head of right radius, initial encounter for closed fracture (principal); E11.9 Type 2 diabetes mellitus without complications; S09.90XA Unspecified injury of head, initial encounter; E78.5 Hyperlipidemia, unspecified; I10 Essential (primary) hypertension; W01.10XA Fall on same level from slipping, tripping and stumbling with subsequent striking against unspecified object, initial encounter; Y93.01 Activity, walking, marching and hiking; Y92.096 Garden or yard of other non-institutional residence as the place of occurrence of the external cause; Z79.899 Other long term (current) drug therapy; Z79.82 Long term (current) use of aspirin; F32.A Depression, unspecified; Z79.84 Long term (current) use of oral hypoglycemic drugs; K21.9 Gastro-esophageal reflux disease without esophagitis; Z96.649 Presence of unspecified artificial hip joint; Z90.49 Acquired absence of other specified parts of digestive tract
CPT/HCPCS: 70450; 73030; 73080; 73110; 73562; 99283

== ENCOUNTER 2024-03-07 10:47 | Emergency (ER) | payer MEDICARE, SELFPAY ==
[2024-03-07 10:48] VITALS: BP 186/70; PULSE 68; RESP 18; TEMP 36.6; O2SAT 99; BMI 28.8
--- NOTE | 2024-03-07 11:01 | CT_ITS ---
INDICATION: head trauma EXAMINATION: CT BRAIN - CT Head or Brain W/O Contrast Injection TECHNIQUE: Multiple axial images were obtained of the head without intravenous contrast. The protocol utilizes one or more of the following dose reduction techniques: automated exposure control, adjustment of mA and/or kV according to patient size,and/or use of iterative reconstruction technique. IV Contrast dosage and agent: None. RADIATION DOSAGE (If Supplied By Facility): CTDIvol = ( 44.99 ) mGy, DLP = ( 762.36 ) mGycm COMPARISON: Prior study dated: 10/17/2022 FINDINGS: BRAIN PARENCHYMA: No intra- or extra-axial hemorrhage. No evidence of acute infarct. No intracranial mass or mass effect. There is preservation of the wood/white matter interface. Posterior fossa structures are unremarkable. Atherosclerotic calcifications of the cavernous internal carotid arteries. CSF SPACES: Mild atrophy unchanged. No hydrocephalus. Basal cisterns are patent. CALVARIUM, SKULL BASE, PARANASAL SINUSES AND MASTOID AIR CELLS: Clear. Previous right frontal craniotomy. Mild right frontal scalp soft tissue swelling. ORBITS: Both globes, extraocular muscles, optic nerves and retrobulbar fat appear unremarkable. CT/Brain/Head without Contrast IMPRESSION: 1. No acute intracranial process. 2. Mild right frontal scalp soft tissue swelling. Electronically Signed: Henri Lee MD at 12:46 EDT ,
--- NOTE | 2024-03-07 11:01 | EX.ED.GENINJ ---
HPI History of Present Illness Chief Complaint: Head Injury Informant: patient and spouse/S.O. 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 History of diabetes hypertension. Today was in her kitchen and she hit her right forehead against a kitchen counter and fell to the floor. She is a hematoma on her right forehead. She is not on blood thinners. She had no LOC. She has 2 minor lacerations to her right lower leg that will not need to be repaired. Denies any other complaints. Prior similar symptoms: Yes Recent Illness/Hospitalization: No PFSH PFS Medical History Pancreatitis, gallstone Elevated lipase Acute calculous cholecystitis GERD (gastroesophageal reflux disease) Depression Type 2 diabetes mellitus Hypertension Hyperlipidemia Home Medications ?Medication ?Instructions ?Recorded ?Last Taken ?Type aspirin 81 mg chewable tablet 81 mg PO QHS Heart 05/02/14 05/24/19 22:00 History cholecalciferol (vitamin D3) 25 2,000 unit PO DAILY supplement 05/02/14 05/25/19 08:00 History mcg (1,000 unit) tablet clonidine HCl 0.1 mg tablet 0.1 mg PO BID bp 05/02/14 11/21/17 History 0.1 MG fluoxetine 20 mg capsule 40 mg PO DAILY depression 05/02/14 05/25/19 08:00 History gemfibrozil 600 mg tablet 600 mg PO BIDAC cholesterol 05/02/14 05/25/19 08:00 History losartan 100 mg tablet 100 mg PO DAILY bp 05/02/14 05/25/19 08:00 History multivitamin with folic acid 400 1 tab PO DAILY supplement 05/02/14 05/25/19 08:00 History mcg tablet biotin 10,000 mcg capsule 10,000 mcg PO DAILY supplement 11/13/17 05/25/19 08:00 History bupropion HCl 150 mg 24 hr tablet, 150 mg PO DAILY depression 11/13/17 05/25/19 08:00 History extended release metformin 500 mg tablet,extended 1,000 mg PO DAILY DM 11/13/17 05/25/19 08:00 History release 24 hr spironolactone 25 mg tablet 25 mg PO DAILY BP 05/26/19 05/25/19 08:00 History vitamin B complex 150 mg PO DAILY supplement 05/26/19 05/25/19 08:00 History vitamin C 500 mg-multivitamin with 500 mg PO DAILY supplement 05/26/19 05/25/19 08:00 History minerals chewable tablet pantoprazole 40 mg tablet,delayed 40 mg PO DAILY ##30 05/27/19 Unknown Rx release clonidine HCl 0.1 mg tablet 0.1 mg PO Q6H PRN Hypertension #20 03/18/20 Unknown Rx tabs diazepam 5 mg tablet (Valium) 2.5 mg (1/2 x 5 mg) PO TID PRN 10/17/22 Unknown Rx Muscle pain/spasm 5 days #10 tabs hydrocodone-acetaminophen 5-325mg 1 tab PO Q6H PRN PRN Pain 3 days 10/17/22 Unknown Rx 5mg-325mg #12 TABLETS Allergy/AdvReac Type Severity Reaction Status Date / Time amlodipine besylate (From Allergy Unknown Verified 03/07/24 10:48 Norvasc) azithromycin (From Zithromax) Allergy Unknown Verified 03/07/24 10:48 chlorhexidine Allergy Rash Verified 03/07/24 10:48 ciprofloxacin (From Cipro) Allergy Unknown Verified 03/07/24 10:48 ciprofloxacin HCl (From Allergy Unknown Verified 03/07/24 10:48 Cipro) clarithromycin (From Biaxin) Allergy Unknown Verified 03/07/24 10:48 clindamycin Allergy Angioedema Verified 03/07/24 10:48 ketorolac (From Toradol) Allergy Anaphylaxis Verified 03/07/24 10:48 Penicillins Allergy Hives Verified 03/07/24 10:48 Qwhdxef-TMT-XuQ Reductase Allergy Unknown Verified 03/07/24 10:48 Inhibitor (Odsqqwg-Jxx-Ihg Reductase Inhibitor) chlorthalidone AdvReac Itching Verified 03/07/24 10:48 gentamicin AdvReac Other Verified 03/07/24 10:48 Surgical History History of laparoscopic cholecystectomy (~05/26/19) Hip joint replacement status Social History Smoking Status: Never smoker ROS ROS ED ROS Narrative Denies recent illness. Constitutional Constitutional ED: Denies chills or fever(s) Eyes Eyes: Denies blurry vision ENT ENT ED: Denies ear pain Cardiovascular Cardiovascular: Denies chest pain Respiratory/Chest Respiratory/Chest: Denies cough Gastrointestinal Gastrointestinal: Denies abdominal pain Genitourinary Genitourinary ED: Denies dysuria Musculoskeletal Musculoskeletal: Denies arthralgias Neurologic Neurologic: Denies headache(s) Psychiatric Psychiatric: Denies anxiety Endocrine Endocrinology: Denies cold intolerance Hematologic/Lymphatic Hematologic/Lymphatic: Denies easy bleeding Allergic/Immunologic Allergic/Immunologic ED: Denies mouth swelling EXAM Physical Exam Narrative Exam Narrative: 78-year-old female vital signs are stable afebrile. H EENT exam pupils round reactive light. TMs are normal bilaterally. Scalp unremarkable except the right forehead there is a moderate size hematoma. Approximately 2 to 3 inches in diameter circular. Skins intact. Neck and trachea nontender. Back and spine nontender. No bruising. Lungs are clear. Heart regular rhythm rate about 70. Chest wall ribs are nontender. Abdomen soft nontender. Pelvic girdle intact. Moving all 4 extremities. 5 out of 5 chronometer assembler strength. Dorsi plantarflexion intact. Normal range of motion. No deformity or shortening. Patient is awake and alert. Answering questions following commands. GCS of 15. Const Vital Signs: 03/07/24 10:48 03/07/24 12:47 03/07/24 12:52 Temperature 97.9 F Temperature Source Temporal Pulse Rate 68 85 Respiratory Rate 18 18 Respiratory Effort Normal Respiratory Depth Normal Respiratory Pattern Normal Blood Pressure 186/70 H 147/69 H Blood Pressure Mean 108 95 Pulse Ox 99 96 Oxygen Delivery Method Room Air Room Air Room Air Positive well nourished and well developed; Negative for obese, cachectic, contractures or unkempt General Appearance ED: well developed and NAD; Negative for unkempt, cachectic or contractures Nutritional Appearance: Negative for cachectic or obese HEENT Reports TM's clear HEENT Narrative: Right forehead hematoma 3 to 4 inches in diameter. trauma and tenderness; Negative for atraumatic Tympanic Membrane ED: Yes TM's clear Eyes PERRL and EOMs intact bilaterally Neck full ROM General: Negative for tenderness Chest Wall inspection of chest normal and palpation of chest normal Resp normal respiratory effort and clear to auscultation bilaterally Auscultation: Negative for rales, rhonchi, wheezes or diminished lung sounds Cardio regular rhythm, S1 normal heart sound, S2 normal heart sound and no murmurs Palpation: Negative for palpable S3 or palpable S4 Rate: regular rate GI normal to inspection, nondistended, normoactive bowel sounds, non-tender, non-distended and no masses Inspection: Negative for abdominal distention Palpation: soft; Negative for tender Back/Spine normal to inspection and no thoracic nor lumbar tenderness General Back: Negative for CVA tenderness Thoracic Spine / Upper Back: Negative for thoracic spinal tenderness Lumbar Spine / Lower Back: Negative for straight leg raise negative bilaterally Extremity full ROM; Negative for normal to inspection Extremity Narrative: Superficial lacerations right proximal lower leg and right lower leg just above the knee. They do not need to be repaired. General Extremety ED: Negative for deformity or edema General Extremity: Negative for deformity or edema Neuro oriented x3, CN's II-XII intact bilaterally, moves all extremities and no focal motor deficits Vero Coma Scale: document GCS findings Spontaneous Obeys Commands Oriented 15 Sensorium / Orientation: alert, oriented to person, oriented to place, oriented to time and orientation impaired; Negative for lethargic or stuporous Motor Exam: strength 5/5 throughout Psych mental status grossly normal and thought process normal Appearance: Negative for unkempt Mood & Affect: Negative for depressed Skin no rashes or lesions noted, no wounds, skin turgor normal and no jaundice Rashes: No rashes noted Trauma: Negative for abrasion Wounds: Negative for wounds noted MDM MDM MDM Narrative Medical decision making narrative: 78-year-old female she was offered but does not want a thing for pain at this time. She is currently not on any blood thinners besides aspirin. And white close head injury and hematoma on her forehead. CT OB obtained. She does have a history of a prior fall with intracranial bleeding craniotomy. Patient doing well at 1 PM. CAT scan read as no acute process. She be discharged home. She knows about delayed intracranial bleeds and will follow-up as needed. History & Record Review Discussion w/independent historian: Patient and Family Additional record(s) reviewed:: Prior inpatient record, Prior outpatient record, Prior ED visit and Prior labs Radiography Diagnostic Testing: Clinical Impression(s) from Imaging Studies Brain CT 03/07/24 11:01 IMPRESSION: 1. No acute intracranial process. 2. Mild right frontal scalp soft tissue swelling. Electronically Signed: Henri Lee MD at 12:46 EDT , Discharge Plan Triage Chief Complaint: Head Injury ED Provider: Wei Abreu Dx/Rx/DC Orders Prescriptions: No Action clonidine HCl 0.1 MG tablet 0.1 mg PO BID gemfibrozil 600 MG tablet 600 mg PO BIDAC aspirin 81 MG tablet,chewable 81 mg PO QHS losartan 100 MG tablet 100 mg PO DAILY fluoxetine 20 MG capsule 40 mg PO DAILY cholecalciferol (vitamin D3) 1,000 UNIT tablet 2,000 unit PO DAILY multivitamin with folic acid 1 TABLET tablet 1 tab PO DAILY biotin 10,000 MCG capsule 10,000 mcg PO DAILY metformin 500 MG tablet 1,000 mg PO DAILY Patient Comments: bupropion HCl 150 MG tablet extended release 24 hr 150 mg PO DAILY vitamin B complex 1 EACH capsule 150 mg PO DAILY vitamin G-mvtdogliauzq-tktzmhu 500 MG tablet,chewable 500 mg PO DAILY spironolactone 25 MG tablet 25 mg PO DAILY Patient Comments: TAKE 1 TABLET BY MOUTH ONCE DAILY FOR 30 DAYS pantoprazole 40 MG tablet,delayed release (DR/EC) 40 mg PO DAILY Qty: 30 0RF clonidine HCl 0.1 MG tablet 0.1 mg PO Q6H PRN (Reason: Hypertension) Qty: 20 0RF hydrocodone-acetaminophen 5-325 mg tablet 1 tab PO Q6H PRN PRN (Reason: Pain) 3 Days Qty: 12 0RF diazepam [Valium] 5 mg tablet 2.5 mg PO TID PRN (Reason: Muscle pain/spasm) 5 Days Qty: 10 0RF Primary Care Provider: Lei Ibarra Referrals: Lei Ibarra, DO [Primary Care Provider] - Print Language: Urdu
[2024-03-07 12:47] VITALS: BP 147/69; PULSE 85; RESP 18; O2SAT 96
[2024-03-07 13:22] VITALS: BP 142/88; PULSE 65; RESP 18; TEMP 36.4; O2SAT 95
== END 2024-03-07 13:23 | disposition home or self-care (01) ==
PROVIDERS: Emergency Provider Emergency Medicine; PCP Student in an Organized Health Care Education/Training Program; Visit Provider Emergency Medicine
DX: S00.93XA Contusion of unspecified part of head, initial encounter (principal); E11.9 Type 2 diabetes mellitus without complications; I10 Essential (primary) hypertension; S81.811A Laceration without foreign body, right lower leg, initial encounter; W18.09XA Striking against other object with subsequent fall, initial encounter; Y92.89 Other specified places as the place of occurrence of the external cause; E78.5 Hyperlipidemia, unspecified; Z79.82 Long term (current) use of aspirin; F32.A Depression, unspecified; Z79.899 Other long term (current) drug therapy; Z79.84 Long term (current) use of oral hypoglycemic drugs; K21.9 Gastro-esophageal reflux disease without esophagitis; Z96.649 Presence of unspecified artificial hip joint; Z90.49 Acquired absence of other specified parts of digestive tract
CPT/HCPCS: 70450; 99282